=== PATIENT | male | born 1960 | race Caucasian/White ===

== ENCOUNTER 2019-04-25 00:54 | Outpatient (CLI) | payer OTHER, SELFPAY ==
--- NOTE | 2019-04-25 10:22 | DI.RAD_ITS ---
SYMPTOM/DIAGNOSIS: BACK PAIN LUMBOSACRAL SPINE : 04/25 Three views were obtained. There are minimal degenerative changes of the S-I joints bilaterally, Thee is transitional lumbosacral vertebra. There is disc space narrowing at the T-11, T-12 level. Intervertebral disc spaces otherwise appear well maintained. Mild hypertrophic spurring noted involving facet joints and vertebral end plates. CONCLUSION: Mild degenerative changes of the lumbar spine. ID VERIFIED BY PHOTO ID
--- NOTE | 2019-04-25 10:22 | DI.RAD_ITS ---
SYMPTOM/DIAGNOSIS: HAND PAIN RIGHT HAND: 04/25 Two views were obtained. There is an apparent old unhealed injury of the tuft of the distal phalanx of the ring finger. There appears to be a mild flexion deformity at the PIP joint of the little finger. No other significant bony or soft tissue abnormality seen. ID VERIFIED BY PHOTO ID
--- NOTE | 2019-04-25 10:22 | DI.RAD_ITS ---
SYMPTOM/DIAGNOSIS: KNEE PAIN RIGHT KNEE: 04/25 Two views were obtained. There is slight narrowing medial tibial femoral cartilaginous joint space. No other significant bony or soft tissue abnormality seen. ID VERIFIED BY PHOTO ID
--- NOTE | 2019-04-25 10:22 | DI.RAD_ITS ---
SYMPTOM/DIAGNOSIS; KNEE PAIN LEFT KNEE: 04/25 Two views were obtained. There is mild narrowing of the medial tibiofemoral cartilaginous joint space. No other significant bony or soft tissue abnormality seen. ID VERIFIED BY PHOTO ID
== END 2019-04-25 01:14 ==
PROVIDERS: PCP Specialist/Technologist Athletic Trainer; Visit Provider Pediatrics Pediatric Rheumatology
DX: M25.561 Pain in right knee (principal); M25.562 Pain in left knee; M79.641 Pain in right hand; M21.241 Flexion deformity, right finger joints; M54.5 Low back pain; M53.3 Sacrococcygeal disorders, not elsewhere classified; M47.815 Spondylosis without myelopathy or radiculopathy, thoracolumbar region
CPT/HCPCS: 72100; 73120; 73560

== ENCOUNTER 2019-10-12 09:21 | Outpatient (REF) | payer MEDICAID, SELFPAY ==
[2019-10-12 13:53] LABS: Absolute Basophil Count 0.04 k/cumm (0.0-0.2); Absolute Eosinophil Count 0.32 k/cumm (0.0-0.7); Absolute Lymphocyte Count 1.82 k/cumm (1.2-3.4); Absolute Neutrophil Count 2.38 k/cumm (1.2-6.7); Basophils % 0.8; Eosinophils % 6.2; HCT 47.3 % (40.0-50.0); HGB 16.5 g/dL (13.5-17.5); Lymphocytes % 35.3; Mean Corp. HGB Concentration 34.9 g/dL (32.0-36.0); Mean Corpuscular Hemoglobin 31.5 pg (27.0-33.0); Mean Corpuscular Volume 90.3 fL (80-95); Mean Platelet Volume 9.9 fL (8.0-11.0); Monocytes % 11.6; Neutrophils % 46.1; Platelet Count 296 x1000/uL (130-400); RBC 5.24 m/cumm (4.50-6.00); RBC Distribution Width 12.7 % (11.8-14.1); White Blood Cell Count 5.16 k/cumm (4.4-10.8)
[2019-10-12 14:28] LABS: ALT 52 U/L (16-63); AST 24 U/L (15-37); Albumin 4.2 g/dL (3.4-5.0); Alkaline Phosphatase 67 U/L (46-116); Anion Gap 10.7 mmol/L (3-11); BUN 20 mg/dL (7-18); Bilirubin, Total 0.5 mg/dL (0.2-1.0); CO2 25.3 mmol/L (21.0-32.0); CREATININE 0.93 mg/dL (0.70-1.30); Calcium 9.3 mg/dL (8.5-10.1); Calculated LDL 127 mg/dL (<100); Chloride 105 mmol/L (98-107); Cholesterol 194 mg/dL (<200); Glucose 74 mg/dL (74-106); HDL Cholesterol 47 mg/dL (40-60); Potassium 4.4 mmol/L (3.5-5.1); Sodium 141 mmol/L (136-145); Total Protein 7.7 g/dL (6.4-8.2); Triglyceride 102 mg/dL (<150)
[2019-10-13 08:56] LABS: PSA, Screening 3.5 ng/mL (0.0-3.5)
== END 2019-10-12 09:41 ==
LOC: NCHCN 09:21
PROVIDERS: PCP Specialist/Technologist Athletic Trainer; Visit Provider Family Medicine
DX: K21.9 Gastro-esophageal reflux disease without esophagitis (principal); R10.84 Generalized abdominal pain; Z87.820 Personal history of traumatic brain injury; Z00.00 Encounter for general adult medical examination without abnormal findings; Z12.5 Encounter for screening for malignant neoplasm of prostate
CPT/HCPCS: 80053; 80061; 84153; 85025

== ENCOUNTER 2020-02-27 11:36 | Emergency (ER) | payer MEDICAID, SELFPAY ==
[2020-02-27 11:41] VITALS: BP 118/74; PULSE 64; RESP 16; TEMP 36.2; O2SAT 97
--- NOTE | 2020-02-27 11:59 | ED.GENADUL_ITS ---
Discharge Plan Disposition Patient Disposition: HOME Condition: Stable Discharge Details Chief Complaint: RashLesion Clinical Impression: Tick bite Primary Care Provider: Jeffy Tineo ED Provider: Radu Harris Home Meds and New Rx's Prescriptions: New doxycycline hyclate 100 mg capsule 100 mg PO BID 14 Days Qty: 28 RF: 0 Continued clotrimazole-betamethasone [Lotrisone] 15 GM cream 15 gm Topical RF: 0 omeprazole 20 MG capsule,delayed release(DR/EC) 20 mg PO DAILY Qty: 30 RF: 3 Discharge Instructions Instructions: Tick Bite (ED), Puncture Wound (ED) Additional Instructions: Doxycycline as directed. As we discussed, doxycycline can cause sun sensitivity, be sure to wear sunblock and avoid direct sun exposure. Please watch for new or worsening symptoms and return to the ER for any concerns. Remember today an x-ray of your hand was offered but declined. I do recommend reaching out your primary care provider later today or tomorrow for prompt outpatient reevaluation. Medical Decision Making Otherwise healthy 59-year-old gentleman who is right-hand dominant presents with 2 separate complaints. He fell yesterday injuring his left hand. Tetanus status is up-to-date. He declines x-ray. Given his examination low suspicion for acute bony abnormality. Certainly cannot rule out puncture wound, foreign body, etc. Patient understands this and declines care for this issue. Given his tick bite exposure, clinically appears to have cellulitis, no obvious bull's-eye rash, will treat with p.o. doxycycline. Patient comfortable this plan and has additional questions or concerns. He appears well, nontoxic and is afebrile. Medical Records Medical records reviewed: Yes I reviewed the patient's medical records. HPI General Mode of arrival: ambulatory . Date/Time Provider Initiated Documentation: 02/27/20 11:42 . Limitations to Documentation: no limitations . Information obtained by: patient . HPI Narrative: This is a 59-year-old gentleman who denies any significant past medical history. He presents to the ER with 2 separate complaints. He reports he pulled an engorged tick off of his left leg 4 days ago, now the area is warm and slightly tender. He reports generalized mild fatigue but denies fever, rash elsewhere on his body, joint pain. Patient is right-hand dominant, reports yesterday that he fell on his left hand, and landed on a nail. Sustained a small laceration but reports that symptoms have much improved today when compared to yesterday. He does not believe it is broken and does not want an x-ray. He is just making me aware of this as he is here primarily for the tick bite. Denies numbness, tingling, weakness. Patient is unsure of his exact tetanus date, believes it was roughly 5 years ago. We were able to confirm that his last tetanus update was on 03-16-16 Related Data Home Medications Medication Instructions Recorded Confirmed clotrimazole-betamethasone 15 gm TOPICAL 10/16/16 [Lotrisone] omeprazole 20 mg PO DAILY #30 capsule. 11/23/16 02/27/20 doxycycline hyclate 100 mg PO BID 14 Days #28 cap 02/27/20 Previous Rx's Medication Instructions Recorded omeprazole 20 mg PO DAILY #30 capsule. 11/23/16 doxycycline hyclate 100 mg PO BID 14 Days #28 cap 02/27/20 Allergies Allergy/AdvReac Type Severity Reaction Status Date / Time naproxen sodium [From Aleve] Allergy Skin Rash Unverified 02/27/20 11:43 aspirin AdvReac GI Bleeding Unverified 02/27/20 11:43 General Stated Complaint: RashLesion JACK: 4 Review of Systems Constitutional Constitutional: Reports fatigue, Denies fever(s), Denies headache(s) and Denies weakness ENT Ears, Nose, Mouth, and Throat: Denies headache(s) Gastrointestinal Gastrointestinal: Denies nausea Musculoskeletal Musculoskeletal: Denies numbness and Denies tingling Integumentary/Breasts Skin/Breast: Reports erythema Neurologic Neurologic: Denies headache(s), Denies numbness, Denies tingling and Denies weakness Endocrine Endocrine: Reports fatigue PFSH Surgical History Colonoscopy - MAC (11/23/16) EGD - MAC (11/23/16) Social History Smoking/Tobacco Use Status: Never Alcohol Intake: never Drug use: Never Do you feel safe in your relationship?: Yes Exam Const General: cooperative, healthy appearing, comfortable and no acute distress Orientation: alert, awake and oriented x3 HENMT Head: normal to inspection, normocephalic and atraumatic Mouth: moist mucous membranes Eyes Conjunctivae: conjunctivae normal Neck Neck: normal visual inspection, trachea midline and supple Resp Effort & Inspection: normal respiratory effort and able to speak in complete sentences Cardio Rate: regular rate Rhythm: regular rhythm Skin Lesions: no lesions Neuro General: patient alert, patient awake, patient oriented x3, moves all extremities and no focal motor deficits Cognition: normal cognition Speech: speech normal Gait: normal gait Motor: muscle tone normal throughout and strength 5/5 throughout Sensory Exam: no sensory deficits noted Extrem Left upper extremity: hand Hand/finger images: 1. 0.5 cm laceration-puncture wound. There is no erythema, warmth, drainage, or obvious foreign body. There is mild localized swelling-ecchymosis without any bony point tenderness. Full range of motion of all fingers and wrist. Neuro, vascular, tendon intact Upper/lower leg/hip images: 1. Quarter sized area of macular erythema, minimal warmth and discomfort to palpation. Centrally there appears to be a scab, potential puncture wound or insect bite. There is no induration or fluctuance. There is no lymphangitic streaking. Neuro, vascular, tendon intact Psych Appearance: grossly normal Mental Status: mental status grossly normal Course Vital Signs Vital signs: Vital Signs Temperature 36.2 C L 02/27/20 11:41 Pulse 64 02/27/20 11:41 Respiratory Rate 16 02/27/20 11:41 Blood Pressure 118/74 02/27/20 11:41 Pulse Oximetry 97 02/27/20 11:41 Temperature 36.2 C L 02/27/20 11:41 Temperature Source Skin 02/27/20 11:41 Pulse 64 02/27/20 11:41 Respiratory Rate 16 02/27/20 11:41 Respiratory Effort Non-Labored 02/27/20 11:41 Blood Pressure 118/74 02/27/20 11:41 Blood Pressure Position Sitting 02/27/20 11:41 Pulse Oximetry 97 02/27/20 11:41 Oxygen Delivery Method Room Air 02/27/20 11:41 Oxygen Flow Rate 0 02/27/20 11:41 Pain Level 5 02/27/20 11:41
== END 2020-02-27 13:00 | disposition home or self-care (01) ==
PROVIDERS: Emergency Provider Physician Assistant; PCP Specialist/Technologist Athletic Trainer
DX: S80.862A Insect bite (nonvenomous), left lower leg, initial encounter (principal); W57.XXXA Bitten or stung by nonvenomous insect and other nonvenomous arthropods, initial encounter; L03.116 Cellulitis of left lower limb; S61.432A Puncture wound without foreign body of left hand, initial encounter; W45.0XXA Nail entering through skin, initial encounter
CPT/HCPCS: 99283

== ENCOUNTER 2021-06-01 16:46 | Inpatient (IN) | payer MEDICAID, SELFPAY ==
[2021-06-01] VITALS (74 sets, daily range): BP systolic 98–126; BP diastolic 63–84; PULSE 49–81; RESP 13–28; TEMP 36.7–37; O2SAT 90–97
--- NOTE | 2021-06-01 16:45 | RT.EKG_ITS ---
APPROVED REPORT Exam: Resting ECG Reason for Exam: sob Patient Location: E HR:73 bpm ECG Measurements Heart Rate 73 AXIS ME 164 P 24 QRSd 101 QRS -48 QT 381 T 17 QTc 420 Conclusion Sinus rhythm...normal P axis, V-rate 60- 99 Left anterior fascicular block...axis(240,-40), init forces inf Low voltage, precordial leads...precordial leads <1.0mV
--- NOTE | 2021-06-01 17:15 | DI.RAD_ITS ---
Exam(s) XR PORTABLE CHEST AP EXAM: XR PORTABLE CHEST AP-single view CLINICAL HISTORY: cough. TECHNIQUE: 2D digital imaging was performed. COMPARISON: No exams were available for comparison FINDINGS: Heart size is upper normal. The mediastinum is not widened. Lungs are clear. No infiltrates nor obvious pleural effusions. Chest leads in place IMPRESSION: No acute pulmonary findings on this single AP portable view of the chest. DATA REPOSITORY: RADIATION DOSE DELIVERED: All CT scans at this facility use at least one of these dose optimization techniques: automated exposure control; mA and/or kV adjustment per patient size (includes targeted e xams where dose is matched to clinical indication); or iterative reconstruction.
[2021-06-01 17:37] LABS: Source Nasal/Nares
[2021-06-01 17:39] LABS: Abs Immature Grans 0.01 10^3/uL (0.0-0.06); Absolute Basophil Count 0.01 10^3/uL (0.0-0.2); Absolute Eosinophil Count 0.18 10^3/uL (0.0-0.7); Absolute Lymphocyte Count 1.49 10^3/uL (1.2-3.4); Absolute Neutrophil Count 2.38 10^3/uL (1.2-6.7); Basophils % 0.2; HCT 46.3 % (40.0-50.0); HGB 15.8 g/dL (13.5-17.5); Immature Grans % 0.2; Lymphocytes % 33.3; MCH 31.5 pg (27.0-33.0); MCHC 34.1 % (32.0-36.0); MCV 92.4 fL (80-95); MPV 9.8 fL (8.0-11.0); Monocytes % 8.9; Neutrophils % 53.4; Nucleated RBC 0 %; Platelet Count 198 10^3/uL (130-400); RBC 5.01 10^6/uL (4.36-5.78); RDW 12.4 % (11.8-14.1); RDW-SD 42.5 fL; WBC 4.47 10^3/uL (4.4-10.8)
[2021-06-01 17:51] LABS: PTT Activated 24.5 sec (21.0-27.5); Prothrombin Time 10.2 sec (9.3-11.0)
[2021-06-01 18:01] LABS: ALT 39 U/L (16-63); AST 26 U/L (15-37); Albumin 3.9 g/dL (3.4-5.0); Alkaline Phosphatase 78 U/L (46-116); Anion Gap 12.1 mmol/L (3-11); BUN 15 mg/dL (7-18); Bilirubin, Total 0.4 mg/dL (0.2-1.0); CO2 23.9 mmol/L (21.0-32.0); CREATININE 1.3 mg/dL (0.70-1.30); Calcium 8.8 mg/dL (8.5-10.1); Chloride 104 mmol/L (98-107); Estimated GFR 56.31 (mL/min/1.73m2); Glucose 175 mg/dL (74-106); Magnesium 2.1 mg/dL (1.8-2.4); NT-proBNP 24 pg/mL (<300); Potassium 3.8 mmol/L (3.5-5.1); Sodium 140 mmol/L (136-145); Total Protein 7.9 g/dL (6.4-8.2)
[2021-06-01 18:02] LABS: Troponin I 0.11 ng/mL (<0.06)
[2021-06-01 18:17] LABS: D-Dimer 320 ng/mlFEU (<500)
[2021-06-01 18:25] LABS: COVID-19 PCR POSITIVE (Negative)
[2021-06-01] MEDS: nitroGLYcerin 0.4 MG TAB SL (18:28)
--- NOTE | 2021-06-01 19:00 | DI.CT_ITS ---
Exam(s) CT CHEST PE CTA EXAM: CT CHEST PE CTA CLINICAL HISTORY: Covid +, CP, SOB, HX of PE. TECHNIQUE: Imaging Protocol: CT angiography of the chest was performed using pulmonary embolus denise col. Multi planar reconstructions were performed. CONTRAST MATERIAL: Intravenous: Omnipaque 350 Contrast volume: 100 cc COMPARISON: No exams were available for comparison FINDINGS: CHEST: PULMONARY ARTERIES: There are no intraluminal filling defects to suggest acute pulmonary emboli. LUNGS: There is some infiltrate in both lower lobes, more prominent on the right side. No pleural ef fusions. No ominous pulmonary nodules. No significant focal findings in the trachea and mainstem br onchi.. MEDIASTINUM: There is no hilar nor mediastinal adenopathy. Visualized thyroid unremarkable. CARDIAC: Heart size is upper normal. There is no pericardial effusion.Caliber of the thoracic aorta is within normal limits. There is no significant shift of the interventricular septum. PARTIALLY VISUALIZED UPPERMOST ABDOMEN: No obvious findings OSSEOUS: No significant osseous lesions.. IMPRESSION: 1. No evidence of acute pulmonary emboli. No evidence of pulmonary infarction.No pleural effusions. 2. Right lower lobe infiltrate. Also smaller left lower lobe infiltrate. No pleural effusions. 3. No intrathoracic adenopathy evident. Study 1st read by [facility] My final report was called to ER physician 06/02/2021 at 8:05 a.m.. RADIATION DOSE DELIVERED: 518.99mGy.cm Total DLP DATA REPOSITORY: All CT scans at this facility are submitted to the National Radiology Data Registry (NRDR) Dose Index Registry (DIR) with the [employer] ([employer]). RADIATION OPTIMIZATION: All CT scans at this facility use at least one of these dose optimization te chniques: automated exposure control; mA and/or kV adjustment per patient size (includes targeted exa ms where dose is matched to clinical indication); or iterative reconstruction.
--- NOTE | 2021-06-01 19:12 | W.ED.GENAD ---
Discharge Plan Disposition Patient Disposition: [facility] INPATIENT Condition: Serious Discharge Details Clinical Impression: COVID-19, Chest pain, Elevated troponin Primary Care Provider: Jeffy Tineo ED Provider: Radu Harris Home Meds and New Rx's Prescriptions: No Action clotrimazole-betamethasone [Lotrisone] 15 GM cream 15 gm Topical RF: 0 omeprazole 20 MG capsule,delayed release(DR/EC) 20 mg PO DAILY Qty: 30 RF: 3 Medical Decision Making This is a 61-year-old gentleman, denies significant past medical history, presenting to the ER complaining of fatigue, cough, shortness of breath, chest pain over the past week differential is broad, includes but not excluded to Covid, pneumonia, bronchitis, myocarditis, costochondritis, ACS, PE, etc. EKG obtained, no STEMI. Will give a single dose of full dose aspirin and nitro. Patient reports allergy to aspirin, refuses. Agreeable to taking nitro. Will obtain IV access, initiate cardiac work-up with occluded a 1 view chest x-ray and Covid swab Laboratory values reveal elevated troponin at 0.11 and patient is Covid positive. Laboratory values are otherwise unremarkable for obvious emergent process. Normal D-dimer, we will not pursue CTA. Patient reports that he is pain-free after the single nitro. Patient is hemodynamically stable, O2 sats are 95% on room air. X-ray cannot exclude left lower lobe pneumonia or atelectasis. Patient is afebrile, no evidence of leukocytosis, clinically doubt acute pneumonia. Given that he is Covid positive, elevated troponin, certainly consider myocarditis. I initially reached out to [facility] to discuss potential transfer, they are at capacity and cannot accept. I then had the same conversation with [facility] and unfortunately the same results. I then discussed the case with our hospitalist team, Dr. Matthews. He is agreeable to admission, will personally see the patient in our ER, and prior to admission does request a CTA of the chest. CTA of the chest ordered. Medical Records Medical records reviewed: Yes I reviewed the patient's medical records. Imaging Data Radiologic Study: Attestation: I personally reviewed and interpreted this imaging study as follows: Imaging: X-Ray Radiologist's impression: PROCEDURE INFORMATION: Exam: XR Chest Exam date and time: 06/01/2021 17:19 Age: 61 years old Clinical indication: Other: Cough TECHNIQUE: Imaging protocol: XR of the chest. Views: 1 view. COMPARISON: CR CHEST 2 VIEWS PA,LAT 07/21/2017 10:19 FINDINGS: Lungs: An opacity in the left retrocardiac region cannot be excluded on this frontal view. The diaphragm is obscured. Pleural spaces: No pleural effusion. No pneumothorax. Heart/Mediastinum: No cardiomegaly. Diaphragm: Elevated right hemidiaphragm. Bones/joints: No acute fracture. IMPRESSION: Left lower lobe pneumonia and or atelectasis cannot be excluded on this frontal view. Consider lateral view for further workup if clinically indicated. Lab Data Lab results reviewed: Yes I reviewed the patient's lab results. Labs: Laboratory Tests Range/Units 06/01/21 06/01/21 06/01/21 17:04 17:04 17:04 WBC (4.4-10.8) 10^3/uL 4.47 RBC (4.36-5.78) 10^6/uL 5.01 Hgb (13.5-17.5) g/dL 15.8 Hct (40.0-50.0) % 46.3 MCV (80-95) fL 92.4 MCH (27.0-33.0) pg 31.5 MCHC (32.0-36.0) % 34.1 RDW (11.8-14.1) % 12.4 Plt Count (130-400) 10^3/uL 198 MPV (8.0-11.0) fL 9.8 Immature Gran % 0.2 Neutrophils % 53.4 Lymphocytes % 33.3 Monocytes % 8.9 Eosinophils % 4.0 Basophils % 0.2 Nucleated RBC % % 0 Absolute Neutrophils (1.2-6.7) 10^3/uL 2.38 Absolute Lymphocytes (1.2-3.4) 10^3/uL 1.49 Absolute Monocytes (0.1-0.8) 10^3/uL 0.40 Absolute Eosinophils (0.0-0.7) 10^3/uL 0.18 Absolute Basophils (0.0-0.2) 10^3/uL 0.01 PT (9.3-11.0) sec 10.2 INR (0.9-1.1) 1.0 APTT (21.0-27.5) sec 24.5 D-Dimer (<500) ng/mlFEU 320 Sodium (136-145) mmol/L 140 Potassium (3.5-5.1) mmol/L 3.8 Chloride (98-107) mmol/L 104 Carbon Dioxide (21.0-32.0) mmol/L 23.9 Anion Gap (3-11) mmol/L 12.1 H BUN (7-18) mg/dL 15 Creatinine (0.70-1.30) mg/dL 1.3 Estimated GFR/1.73 m2 (mL/min/1.73m2) 56.31 Glucose (74-106) mg/dL 175 H Calcium (8.5-10.1) mg/dL 8.8 Magnesium (1.8-2.4) mg/dL 2.1 Total Bilirubin (0.2-1.0) mg/dL 0.4 AST (15-37) U/L 26 ALT (16-63) U/L 39 Alkaline Phosphatase (46-116) U/L 78 Troponin I (<0.06) ng/mL 0.11 H* NT-Pro-B Natriuret Pep (<300) pg/mL 24 Total Protein (6.4-8.2) g/dL 7.9 Albumin (3.4-5.0) g/dL 3.9 COVID-19 Source SARS-CoV-2 (PCR) (Negative) Range/Units 06/01/21 06/01/21 17:30 19:45 WBC (4.4-10.8) 10^3/uL RBC (4.36-5.78) 10^6/uL Hgb (13.5-17.5) g/dL Hct (40.0-50.0) % MCV (80-95) fL MCH (27.0-33.0) pg MCHC (32.0-36.0) % RDW (11.8-14.1) % Plt Count (130-400) 10^3/uL MPV (8.0-11.0) fL Immature Gran % Neutrophils % Lymphocytes % Monocytes % Eosinophils % Basophils % Nucleated RBC % % Absolute Neutrophils (1.2-6.7) 10^3/uL Absolute Lymphocytes (1.2-3.4) 10^3/uL Absolute Monocytes (0.1-0.8) 10^3/uL Absolute Eosinophils (0.0-0.7) 10^3/uL Absolute Basophils (0.0-0.2) 10^3/uL PT (9.3-11.0) sec INR (0.9-1.1) APTT (21.0-27.5) sec D-Dimer (<500) ng/mlFEU Sodium (136-145) mmol/L Potassium (3.5-5.1) mmol/L Chloride (98-107) mmol/L Carbon Dioxide (21.0-32.0) mmol/L Anion Gap (3-11) mmol/L BUN (7-18) mg/dL Creatinine (0.70-1.30) mg/dL Estimated GFR/1.73 m2 (mL/min/1.73m2) Glucose (74-106) mg/dL Calcium (8.5-10.1) mg/dL Magnesium (1.8-2.4) mg/dL Total Bilirubin (0.2-1.0) mg/dL AST (15-37) U/L ALT (16-63) U/L Alkaline Phosphatase (46-116) U/L Troponin I (<0.06) ng/mL 0.11 H* NT-Pro-B Natriuret Pep (<300) pg/mL Total Protein (6.4-8.2) g/dL Albumin (3.4-5.0) g/dL COVID-19 Source Nasal/Nares SARS-CoV-2 (PCR) (Negative) POSITIVE A* ECG Data Attestation: I personally reviewed and interpreted this ECG (s) as follows: Interpretation: Please see official report by Dr. Jacques. Sinus rhythm, ventricular rate of 73. No STEMI. HPI General Mode of arrival: ambulatory. Date/Time Provider Initiated Documentation: 06/01/21 17:03. Limitations to Documentation: no limitations. Information obtained by: patient. HPI Narrative: This is a 61-year-old man, reports past medical history of GERD and bronchitis, presenting to the ER today reporting cough with green phlegm, shortness of breath, general fatigue, anterior chest pain mid chest worse with cough for 1 week. Patient states that he went to the [facility] last week with his brother, brother has similar symptoms, he has not been vaccinated for Covid. He tells me he was admitted in the [facility] approximately 6 months ago for what he describes as bronchitis, at that time had a negative stress test. Patient denies headache, neck pain, fever, abdominal pain, nausea, vomiting, pain or swelling in his legs, change of bowel or bladder function. Patient denies cardiac history, smoking, alcohol use. He has not taken any [id number] medications for symptomatic control. Patient reports that his chest pain is dull, aching, does not radiate, coughing makes it worse. Describes his chest pain currently as a 2 or 3 out of 10, up to a 6 with coughing Related Data Home Medications Medication Instructions Recorded Confirmed clotrimazole-betamethasone 15 gm TOPICAL 10/16/16 [Lotrisone] omeprazole 20 mg PO DAILY #30 capsule. 11/23/16 02/27/20 Previous Rx's Medication Instructions Recorded omeprazole 20 mg PO DAILY #30 capsule. 11/23/16 Allergies Allergy/AdvReac Type Severity Reaction Status Date / Time naproxen sodium [From Aleve] Allergy Skin Rash Unverified 02/27/20 11:43 aspirin AdvReac GI Bleeding Unverified 02/27/20 11:43 General Stated Complaint: RespSymp JACK: 3 Review of Systems Constitutional Constitutional: Denies fatigue, Denies fever(s), Denies headache(s) and Denies weakness ENT Ears, Nose, Mouth, and Throat: Denies headache(s) and Denies neck pain Cardiovascular Cardiovascular: Reports chest pain and Reports dyspnea Respiratory Respiratory: Reports dyspnea Gastrointestinal Gastrointestinal: Denies abdominal pain, Denies nausea and Denies vomiting Genitourinary Genitourinary: Denies dysuria Musculoskeletal Musculoskeletal: Denies back pain, Denies neck pain, Denies numbness and Denies tingling Integumentary/Breasts Skin/Breast: Denies rash Neurologic Neurologic: Denies headache(s), Denies numbness, Denies tingling and Denies weakness Endocrine Endocrine: Denies fatigue Hematologic/Lymphatic Hematologic/Lymphatic: Denies easy bleeding and Denies easy bruising PFSH Surgical History Colonoscopy - MAC (11/23/16) EGD - MAC (03/20/17) Social History Smoking/Tobacco Use Status: Never Smoking risk assessment performed?: Yes Alcohol Intake: current Alcohol Intake frequency: holidays/special occasions only Drug use: Never Substance use type: does not use Do you feel safe at home: Yes Do you feel safe in your relationship?: Yes Exam Const General: cooperative, healthy appearing, comfortable and no acute distress Orientation: alert and awake [facility] Head: normal to inspection, normocephalic and atraumatic Face and sinus: normal facial exam Mouth: moist mucous membranes Eyes General: appearance normal, both eyes and all related structures Conjunctivae: conjunctivae normal Neck Neck: normal visual inspection, full ROM, trachea midline, supple and nontender Chest Chest: normal inspection of the chest Chest/axillae images: 1. Mild reproducible discomfort. No erythema, warmth, crepitus. Skin is intact Resp Effort & Inspection: normal respiratory effort and able to speak in complete sentences Auscultation: diminished lung sounds bilaterally in the lower lung dee (Slightly) Cardio Rate: regular rate Rhythm: regular rhythm GI Palpation: soft, not firm, no guarding, no pulsatile masses and nontender Auscultation: normal bowel sounds Back/Spine/Pelvis Back: No back tenderness Skin General skin exam: no rashes or lesions noted Neuro General: patient alert, patient awake, moves all extremities and no focal motor deficits Cognition: normal cognition Speech: speech normal Gait: normal gait Sensory Exam: no sensory deficits noted Extrem General: normal to inspection, full ROM, capillary refill normal, no pedal edema and no calf tenderness Psych Appearance: grossly normal Mental Status: mental status grossly normal Course Vital Signs Vital signs: Vital Signs Temperature 37 C 06/01/21 16:55 Pulse 77 06/01/21 16:55 Respiratory Rate 18 06/01/21 16:55 Blood Pressure 124/79 06/01/21 16:55 Pulse Oximetry 95 06/01/21 16:55 Temperature 37 C 06/01/21 16:55 Temperature Source Temporal Artery Scan 06/01/21 16:55 Pulse 70 06/01/21 18:56 Pulse 71 06/01/21 18:56 Respiratory Rate 18 06/01/21 18:56 Respiratory Effort 06/01/21 17:49 Respiratory Depth Normal 06/01/21 17:49 Blood Pressure 116/73 06/01/21 18:56 Blood Pressure Mean 83 06/01/21 18:56 Blood Pressure Position Sitting 06/01/21 16:55 Pulse Oximetry 95 06/01/21 18:56 Oxygen Delivery Method Room Air 06/01/21 16:55 Oxygen Flow Rate 0 06/01/21 16:55 Pain Level 3 06/01/21 18:28 Lab/Test Results Lab/Test Results: Laboratory Tests Range/Units 06/01/21 06/01/21 06/01/21 17:04 17:04 17:04 WBC (4.4-10.8) 10^3/uL 4.47 RBC (4.36-5.78) 10^6/uL 5.01 Hgb (13.5-17.5) g/dL 15.8 Hct (40.0-50.0) % 46.3 MCV (80-95) fL 92.4 MCH (27.0-33.0) pg 31.5 MCHC (32.0-36.0) % 34.1 RDW (11.8-14.1) % 12.4 Plt Count (130-400) 10^3/uL 198 MPV (8.0-11.0) fL 9.8 Immature Gran % 0.2 Neutrophils % 53.4 Lymphocytes % 33.3 Monocytes % 8.9 Eosinophils % 4.0 Basophils % 0.2 Nucleated RBC % % 0 Absolute Neutrophils (1.2-6.7) 10^3/uL 2.38 Absolute Lymphocytes (1.2-3.4) 10^3/uL 1.49 Absolute Monocytes (0.1-0.8) 10^3/uL 0.40 Absolute Eosinophils (0.0-0.7) 10^3/uL 0.18 Absolute Basophils (0.0-0.2) 10^3/uL 0.01 PT (9.3-11.0) sec 10.2 INR (0.9-1.1) 1.0 APTT (21.0-27.5) sec 24.5 D-Dimer (<500) ng/mlFEU 320 Sodium (136-145) mmol/L 140 Potassium (3.5-5.1) mmol/L 3.8 Chloride (98-107) mmol/L 104 Carbon Dioxide (21.0-32.0) mmol/L 23.9 Anion Gap (3-11) mmol/L 12.1 H BUN (7-18) mg/dL 15 Creatinine (0.70-1.30) mg/dL 1.3 Estimated GFR/1.73 m2 (mL/min/1.73m2) 56.31 Glucose (74-106) mg/dL 175 H Calcium (8.5-10.1) mg/dL 8.8 Magnesium (1.8-2.4) mg/dL 2.1 Total Bilirubin (0.2-1.0) mg/dL 0.4 AST (15-37) U/L 26 ALT (16-63) U/L 39 Alkaline Phosphatase (46-116) U/L 78 Troponin I (<0.06) ng/mL 0.11 H* NT-Pro-B Natriuret Pep (<300) pg/mL 24 Total Protein (6.4-8.2) g/dL 7.9 Albumin (3.4-5.0) g/dL 3.9 COVID-19 Source SARS-CoV-2 (PCR) (Negative) Range/Units 06/01/21 17:30 WBC (4.4-10.8) 10^3/uL RBC (4.36-5.78) 10^6/uL Hgb (13.5-17.5) g/dL Hct (40.0-50.0) % MCV (80-95) fL MCH (27.0-33.0) pg MCHC (32.0-36.0) % RDW (11.8-14.1) % Plt Count (130-400) 10^3/uL MPV (8.0-11.0) fL Immature Gran % Neutrophils % Lymphocytes % Monocytes % Eosinophils % Basophils % Nucleated RBC % % Absolute Neutrophils (1.2-6.7) 10^3/uL Absolute Lymphocytes (1.2-3.4) 10^3/uL Absolute Monocytes (0.1-0.8) 10^3/uL Absolute Eosinophils (0.0-0.7) 10^3/uL Absolute Basophils (0.0-0.2) 10^3/uL PT (9.3-11.0) sec INR (0.9-1.1) APTT (21.0-27.5) sec D-Dimer (<500) ng/mlFEU Sodium (136-145) mmol/L Potassium (3.5-5.1) mmol/L Chloride (98-107) mmol/L Carbon Dioxide (21.0-32.0) mmol/L Anion Gap (3-11) mmol/L BUN (7-18) mg/dL Creatinine (0.70-1.30) mg/dL Estimated GFR/1.73 m2 (mL/min/1.73m2) Glucose (74-106) mg/dL Calcium (8.5-10.1) mg/dL Magnesium (1.8-2.4) mg/dL Total Bilirubin (0.2-1.0) mg/dL AST (15-37) U/L ALT (16-63) U/L Alkaline Phosphatase (46-116) U/L Troponin I (<0.06) ng/mL NT-Pro-B Natriuret Pep (<300) pg/mL Total Protein (6.4-8.2) g/dL Albumin (3.4-5.0) g/dL COVID-19 Source Nasal/Nares SARS-CoV-2 (PCR) (Negative) POSITIVE A* Critical Care Time Critical Care Time Critical Care Time: Yes Total Critical Care Time: 35 Attestation: Upon my evaluation, this patient had a high probability of clinically significant, life-threatening deterioration due to their current medical conditions, which required my direct attention, intervention, and personal management. I have personally provided greater than 30 minutes of critical care time exclusive of the time spend on separately billable procedures. Time includes obtaining a history, examining the patient, pulse oximetry, review of laboratory data, radiology results, discussion with consultants, arranging urgent treatment with development of a management plan, evaluation of patient's response to treatment, and monitoring for potential decompensation. Interventions were performed as documented above.
--- NOTE | 2021-06-01 19:15 | HPE_ITS ---
Date of service: 06/01/21 Time of Service: 19:15 Assessment and Plan Assessment and plan (1) COVID-19: Status: Acute Assessment and plan: COVID-19. By CXR I think there may be some pneumonitis, but sats in any case are satisfactory at present. The troponin likely represents an element of myocarditis, no clinical signs heart failure. The pleuritic CP may in fact be related to cough and muscle strain, but despite the normal d-Dimer I would maintain some cocern for PE (even more so with h/o PE) and have asked ER to obtain CTA. This will also help better delinmeate extent of COVID pneumonitis. COVID: begin Remdesivir and steroids; hold on Barictinib unless rerspiratory status declines. DVT prop[hylaxis unless CTA positive. Troponin, ?myocarditis. Trend trop, ECHO History of Present Illness History of Present Illness Chief Complaint: SOB, cough, CP and COVID positive Narrative: 61 male, unvaccinated, recently visiting family in [facility]. Here with one week of cough, MULLINS and pleuritic CP (only with cough, not with deep breathing). Also had diarrhea but has since resolved. In ER findings of note for absence of fever, O2 sats low-mod 90s on RA, negative CXR (though to my read I might call an interstitial pattern), negative d-Dimer, trop 0.11 and EKG with m inor nonspecific TW changes, though unchanged from baseline. COVID is positive. Denies loss of taste or smell. Does report PE about a year ago but says he was treated for only two weeks. Review of Systems All systems reviewed & are unremarkable except as noted in HPI and below PFSH Surgical History Colonoscopy - MAC (11/23/16) EGD - MAC (11/23/16) Social History Smoking/Tobacco Use Status: Never Smoking risk assessment performed?: Yes Alcohol Intake: current Alcohol Intake frequency: holidays/special occasions only Drug use: Never Substance use type: does not use Do you feel safe at home: Yes Do you feel safe in your relationship?: Yes Meds Allergies and Home Medications Allergies Allergy/AdvReac Type Severity Reaction Status Date / Time naproxen sodium [From Aleve] Allergy Skin Rash Unverified 02/27/20 11:43 aspirin AdvReac GI Bleeding Unverified 02/27/20 11:43 Home Medications Medication Instructions Recorded Confirmed Type clotrimazole-betamethasone 15 gm TOPICAL 10/16/16 History [Lotrisone] omeprazole 20 mg PO DAILY #30 capsule. 11/23/16 02/27/20 Rx Exam Narrative Exam Narrative: 116/73, 70, 37.0, 18, 95% RA. HEENT atraumatic; neck supple; lungs fine basilar rales; heart distant, RRR; abdomen soft and NT; extremities w/o edema, pulses 2+/=; neuro Ox3, lucid, moves all 4s Results Labs Result diagrams: 06/01/21 17:04 06/01/21 17:04 Labs: Laboratory Results - last 24 hr 06/01/21 06/01/21 06/01/21 17:04 17:04 17:04 WBC 4.47 RBC 5.01 Hgb 15.8 Hct 46.3 MCV 92.4 MCH 31.5 MCHC 34.1 RDW 12.4 Plt Count 198 MPV 9.8 Immature Gran % 0.2 Neutrophils % 53.4 Lymphocytes % 33.3 Monocytes % 8.9 Eosinophils % 4.0 Basophils % 0.2 Nucleated RBC % 0 Absolute Neutrophils 2.38 Absolute Lymphocytes 1.49 Absolute Monocytes 0.40 Absolute Eosinophils 0.18 Absolute Basophils 0.01 PT 10.2 INR 1.0 APTT 24.5 D-Dimer 320 Sodium 140 Potassium 3.8 Chloride 104 Carbon Dioxide 23.9 Anion Gap 12.1 H BUN 15 Creatinine 1.3 Estimated GFR/1.73 m2 56.31 Glucose 175 H Calcium 8.8 Magnesium 2.1 Total Bilirubin 0.4 AST 26 ALT 39 Alkaline Phosphatase 78 Troponin I 0.11 H* NT-Pro-B Natriuret Pep 24 Total Protein 7.9 Albumin 3.9 COVID-19 Source SARS-CoV-2 (PCR) 06/01/21 17:30 WBC RBC Hgb Hct MCV MCH MCHC RDW Plt Count MPV Immature Gran % Neutrophils % Lymphocytes % Monocytes % Eosinophils % Basophils % Nucleated RBC % Absolute Neutrophils Absolute Lymphocytes Absolute Monocytes Absolute Eosinophils Absolute Basophils PT INR APTT D-Dimer Sodium Potassium Chloride Carbon Dioxide Anion Gap BUN Creatinine Estimated GFR/1.73 m2 Glucose Calcium Magnesium Total Bilirubin AST ALT Alkaline Phosphatase Troponin I NT-Pro-B Natriuret Pep Total Protein Albumin COVID-19 Source Nasal/Nares SARS-CoV-2 (PCR) POSITIVE A* Last Vital Signs Temp 37 C 06/01/21 16:55 Pulse 70 06/01/21 18:56 Resp 18 06/01/21 18:56 BP 116/73 06/01/21 18:56 Pulse Ox 95 06/01/21 18:56
--- NOTE | 2021-06-01 19:28 | DI.VRAD_ITS ---
PROCEDURE INFORMATION: Exam: XR Chest Exam date and time: 06/01/2021 17:19 Age: 61 years old Clinical indication: Other: Cough TECHNIQUE: Imaging protocol: XR of the chest. Views: 1 view. COMPARISON: CR CHEST 2 VIEWS PA,LAT 07/21/2017 10:19 FINDINGS: Lungs: An opacity in the left retrocardiac region cannot be excluded on this frontal view. The diaphragm is obscured. Pleural spaces: No pleural effusion. No pneumothorax. Heart/Mediastinum: No cardiomegaly. Diaphragm: Elevated right hemidiaphragm. Bones/joints: No acute fracture. IMPRESSION: Left lower lobe pneumonia and or atelectasis cannot be excluded on this frontal view. Consider lateral view for further workup if clinically indicated. Dictated and Authenticated by: Lavinia Weller MD. Ordering:BLAISE Lovelace MD
[2021-06-01 20:35] LABS: Troponin I 0.11 ng/mL (<0.06)
[2021-06-01] MEDS: Omnipaque 350 MG/ML 100 ML BTL IJ (21:05)
--- NOTE | 2021-06-01 21:33 | DI.VRAD_ITS ---
PROCEDURE INFORMATION: Exam: CTA Chest With Contrast Exam date and time: 06/01/2021 19:11 Age: 61 years old Clinical indication: Other: Covid + cp SOB HX of pe TECHNIQUE: Imaging protocol: Computed tomographic angiography of the chest with contrast. 3D rendering (Not supervised by radiologist): MIP and/or 3D reconstructed images were created by the technologist. Radiation optimization: All CT scans at this facility use at least one of these dose optimization techniques: automated exposure control; mA and/or kV adjustment per patient size (includes targeted exams where dose is matched to clinical indication); or iterative reconstruction. Contrast material: OMNI 350; Contrast volume: 70 ml; Contrast route: INTRAVENOUS (IV); COMPARISON: CR XR PORTABLE CHEST AP 06/01/2021 18:08 FINDINGS: Pulmonary arteries: No pulmonary emboli. Aorta: No aortic aneurysm. No aortic dissection. Lungs: No airspace consolidation. Minimal dependent subsegmental atelectasis. Pleural spaces: No pneumothorax. No pleural effusion. Heart: No cardiomegaly. No pericardial effusion. Lymph nodes: No enlarged lymph nodes. Bones/joints: No acute fracture. Soft tissues: No suspicious lesions. IMPRESSION: 1. No pulmonary emboli are seen. 2. Minimal dependent subsegmental atelectasis. Dictated and Authenticated by: Lavinia Weller MD. Ordering:BLAISE Lovelace MD
[2021-06-01] MEDS: REMDESIVIR 200 MG in Normal Saline 250 ML 250 MG IVPB (22:40)
[2021-06-01] MEDS: Dexamethasone 10 MG/ML VIAL 6 MG IVP (22:41)
[2021-06-01] MEDS: Water,Injection,Sterile 10 ML VIAL (22:41)
[2021-06-01] MEDS: Heparin 5,000 UNITS/ML VIAL 5000 UNITS SC (22:41)
[2021-06-02] VITALS (23 sets, daily range): BP systolic 89–110; BP diastolic 55–67; PULSE 46–66; RESP 13–19; TEMP 36.7–36.9; O2SAT 91–95
--- NOTE | 2021-06-02 | DI.US_ITS ---
APPROVED REPORT EXAM: Comprehensive 2D, Doppler, and color-flow Echocardiogram Patient Location: In-Patient Room/Bed: DSY524 Rn Ante Partum: Angle Holden RDCS (AE) Indications: COVID, Positive troponin Other Information Study Quality: Fair. Technically limited study due to body habitus, inability to position patient. Conclusion Normal left ventricular wall thickness and chamber size. Estimated ejection fraction is 60%. There are no segmental wall motion abnormalities Grossly normal right ventricular size and function Both atria are normal in size The aortic valve is mildly sclerotic and trileaflet without stenosis or regurgitation Mildly thickened mitral leaflets with trace regurgitation Normal tricuspid valve with trace regurgitation Mildly dilated ascending aorta measuring 3.79 cm Wall motion Left Ventricle The left ventricle is normal size. The left ventricular systolic function is normal. The left ventric ular ejection fraction is within the normal range. There is normal left ventricular wall thickness. T here is normal LV segmental wall motion. Left ventricular filling pattern is normal for age. There is no ventricular septal defect visualized. LVEF is 60%. Right Ventricle The right ventricle is normal size. The right ventricular systolic function is normal. Atria The left atrium size is normal. Right atrium is not well visualized. The interatrial septum is intact with no evidence for an atrial septal defect. Aortic Valve The Aortic valve is mildly sclerotic. Aortic valve is trileaflet. There is no aortic valvular stenosi s. Mitral Valve Mitral valve leaflets are mildly thickened. No evidence of mitral valve stenosis. Trace mitral regurg itation. Tricuspid Valve Tricuspid valve is grossly normal in structure and function. There is no tricuspid valve stenosis. Tr arias tricuspid regurgitation. Unable to assess PA pressure. Pulmonic Valve The pulmonic valve is grossly normal in structure and function. There is no pulmonic valvular stenosi s. There is no pulmonic valvular regurgitation. Great Vessels The aortic root is normal in size. The ascending aorta is mildly dilated.3.79 cm Aortic arch is clem l in caliber. IVC is normal in size and collapses >50% with inspiration. Pericardium There is no pericardial effusion. 2D Dimensions IVSD d PLAX 0.87 cm M: 0.6-1.2 LV Vol A2C d MOD 94.1 mL LVPW d PLAX 0.87 cm M: 0.6 - 1.2 LV Vol A4C d MOD 83.1 mL LVID d PLAX 5.18 cm M: 4.2 - 5.8 LA vol/ BSA A4C s A-L 13.3 mL/m2 LVDs 3.40 cm M: 2.5 - 4.0 LA Area A4C s MOD 12.21 cm2 Ao Root d 3.48 cm M: 3.1 - 3.7 LV EF A4C MOD 60.3 % Ao Asc Diam d 3.79 cm M: 2.6 - 3.4 LV EF A2C MOD 64.0 % LV EF Teichholz 62.0 % LV EF Biplane MOD 60.4 % LVEF (Lemons's) 60.44 % M: 52 - 72 SV 55.82 mL LV Volume 69.56 mL M: 62 - 150 SV Index 28.26 mL/m2 LV Volume Index 35.30 mL/m2 M: 34 - 74 LV Vol Biplane MOD 92.4 mL FS 33.55 % M-Mode TAPSE 2.19 cm (M/F) >1.7 LV Diastology MV E' medial 0.080 (>0.07 m/s) E/A Ratio 1.1 LV E/e MED 8.90 (<14) MV E Vmax 0.71 (0.4-1.3 m/s) MV E' lateral 0.110 (>0.1 m/s) MV A Vmax 0.65 (0.4-1.3 m/s) LV E/e LAT 6.45 (<14) MV E/A Ratio 1.07 MV E/E' medial 8.90 MV E/E' lateral 6.46 Aortic Valve LVOT Area 3.21 cm2 AoV Area Vmax 2.93 cm2 LVOT Vmax 1.04 m/s AoV Area/ BSA (Vmax) 1.48 cm2/m2 LVOT Mean Ruy. 0.63 m/s LAKEISHA Mean Ruy. 2.41 cm2 LVOT Peak Grad 4.3 mmHg LAKEISHA Mean Ruy. Index 1.22 cm2/m2 LVOT Mean Grad 1.9 mmHg LVOT VTI 0.205 m LVOT Diam s 2.00 cm AoV Vmax 1.13 m/s Velocity Ratio 0.92 AoV Mean Ruy. 0.83 m/s AoV Peak Grad 5.1 mmHg LVOT SV 65.78 mL AoV Mean Grad 3.1 mmHg AoV VTI 0.217 m AoV Area VTI 3.03 cm2 AoV Area/ BSA (VTI) 1.53 cm/m2 Mitral Valve MV DT 309 (160-240 msec) MV PHT 90 msec MV Area PHT 2.46 cm2 MV VTI 0.229 m MV Area VTI 2.87 (4.0-6.0 cm2) Pulmonary Valve PV Vmax 1.08 (0.5-1.5 m/s) RVOT Peak Gr. 1.60 mmHg PV Peak Grad 4.6 mmHg RVOT Mean Gr. 0.75 mmHg PV Mean Grad 2.3 mmHg RVOT VTI 0.135 m PV VTI 0.233 m RVOT Vmax 0.63 m/s
[2021-06-02] MEDS: Heparin 5,000 UNITS/ML VIAL 5000 UNITS SC (06:54)
[2021-06-02 07:46] LABS: Troponin I 0.09 ng/mL (<0.06)
--- NOTE | 2021-06-02 12:27 | W.PM.DS.N ---
Date of service: 06/02/21 Time of Service: 12:27 DS: Diagnosis Discharge Diagnosis (1) COVID-19: Status: Acute Discharge Plan Disposition Patient Disposition: HOME Condition: Improving Discharge Details Reason For Visit: Covid pneumonitis, possible myocarditis Admit Date/Time: 06/01/21 19:28 Admit Provider: Jm Matthews Attending Provider: Jm Matthews Primary Care Provider: Jeffy Tineo Hospital Course Hospital Course: Mr Mckeon is a 61 male, unvaccinated for COVID-19, who recently visiting family in [facility]. He has developed one week of cough, MULLINS and pleuritic CP (only with cough, not with deep breathing). He also endorsed that he had diarrhea but it has since resolved. In ER findings of note for absence of fever, O2 sats low-mod 90s on RA. CXR with LLL pneumonia and/or atelectasis. CT chest w/o pulmonary emboli. Minimal dependent subsegmental atelectasis. Negative d-Dimer, trop 0.11 and EKG with minor nonspecific T-wave changes, though unchanged from baseline. COVID was positive. Denies loss of taste or smell. Does report PE about a year ago but says he was treated for only two weeks. His second troponin was also 0.11, third was 0.09. Remdesivir and dexamethasone per COVID-19 treatment protocol initiated. He required no supplemental oxygen during the course of this hospitalization. He remained afebrile. He will discharged to home with medrol 4mg daily for 3 days. He states he goes to the [facility] for care. F/U with them in 1-2 weeks. Return if develops shortness of air, MULLINS, fever. Home Meds and New Rx's Prescriptions: New Medrol 2 mg tablet 4 mg PO DAILY Qty: 6 RF: 0 Continued clotrimazole-betamethasone [Lotrisone] 15 GM cream 15 gm Topical RF: 0 omeprazole 20 MG capsule,delayed release(DR/EC) 20 mg PO DAILY Qty: 30 RF: 3 Discharge Instructions Instructions: COVID-19 (Coronavirus Disease 2019) (DC) Activity:: Activity as Tolerated Equipment/Supplies:: No Equipment Needed Diet:: Resume usual diet Discharge Orders Discharge Orders: Discharge Order (Routine); Ordered 06/02/21 Ordered By: Romario Albert DS: Summary Time Spent with Patient providing and/or coordinating discharge services: Greater than 30 minutes Status at Discharge Functional status at discharge: independent ambulation Overall status at discharge: patient is progressing back to baseline Mental Status: mental status grossly normal Speech and Movement: speech and movement normal Mood: congruent mood Affect: normal affect Exam Const General: cooperative, healthy appearing, comfortable and no acute distress Orientation: alert and awake HENMT Head: normal to inspection, normocephalic and atraumatic Face and sinus: normal facial exam Mouth: moist mucous membranes Eyes General: appearance normal, both eyes and all related structures Sclera: sclerae normal Neck Neck: normal visual inspection, full ROM, trachea midline, supple and nontender Chest Chest: normal inspection of the chest Resp Effort & Inspection: normal respiratory effort and able to speak in complete sentences Auscultation: diminished lung sounds bilaterally in the lower lung dee (Slightly) Cardio Rate: regular rate Rhythm: regular rhythm GI Palpation: soft, not firm, no guarding, no pulsatile masses and nontender Auscultation: normal bowel sounds Back/Spine/Pelvis Back: No back tenderness Skin General skin exam: no rashes or lesions noted Neuro General: patient alert, patient awake, moves all extremities and no focal motor deficits Cognition: normal cognition Speech: speech normal Gait: normal gait Sensory Exam: no sensory deficits noted Extrem General: normal to inspection, full ROM, capillary refill normal, no pedal edema and no calf tenderness Psych Appearance: grossly normal Mental Status: mental status grossly normal Speech and Movement: speech and movement normal Mood: congruent mood Affect: normal affect DS: Data Vitals/I&O Vitals and I&O: Vital Signs Temperature 36.9 C 06/02/21 09:30 Temperature Source Temporal Artery Scan 06/02/21 04:05 Pulse 58 L 06/02/21 10:01 Pulse 59 L 06/02/21 10:01 Respiratory Rate 17 06/02/21 10:01 Respiratory Effort 06/02/21 09:30 Respiratory Depth Normal 06/02/21 09:30 Respiratory Pattern Normal 06/02/21 09:30 Blood Pressure 110/67 06/02/21 10:01 Blood Pressure Mean 77 06/02/21 10:01 Blood Pressure Position Supine 06/02/21 04:05 Pulse Oximetry 92 06/02/21 10:01 Oxygen Delivery Method Room Air 06/02/21 09:30 Oxygen Flow Rate 0 06/02/21 09:30 Pain Level 0 06/02/21 09:30 Intake & Output 06/01/21 06/02/21 06/02/21 23:59 11:59 23:59 Intake Total 400 / 400 Output Total 200 / 200 300 / 300 Balance 200 / 200 -300 / -300 Weight 93.8 kg 93.8 kg Intake: Oral 400 / 400 Output: Urine 200 / 200 300 / 300 Other: Urine Color Light Ce Light Ce Urine Appearance Clear Clear Urine Odor Normal Voiding Methods Urinal Urinal Data Completed and Pending Labs on day of discharge: Labs from last 24 hours 06/02/21 06/01/21 06/01/21 06:50 19:45 17:30 WBC RBC Hgb Hct MCV MCH MCHC RDW Plt Count MPV Immature Gran % Neutrophils % Lymphocytes % Monocytes % Eosinophils % Basophils % Nucleated RBC % Absolute Neutrophils Absolute Lymphocytes Absolute Monocytes Absolute Eosinophils Absolute Basophils PT INR APTT D-Dimer Sodium Potassium Chloride Carbon Dioxide Anion Gap BUN Creatinine Estimated GFR/1.73 m2 Glucose Calcium Magnesium Total Bilirubin AST ALT Alkaline Phosphatase Troponin I 0.09 H* 0.11 H* NT-Pro-B Natriuret Pep Total Protein Albumin COVID-19 Source Nasal/Nares SARS-CoV-2 (PCR) POSITIVE A* 06/01/21 06/01/21 06/01/21 17:04 17:04 17:04 WBC 4.47 RBC 5.01 Hgb 15.8 Hct 46.3 MCV 92.4 MCH 31.5 MCHC 34.1 RDW 12.4 Plt Count 198 MPV 9.8 Immature Gran % 0.2 Neutrophils % 53.4 Lymphocytes % 33.3 Monocytes % 8.9 Eosinophils % 4.0 Basophils % 0.2 Nucleated RBC % 0 Absolute Neutrophils 2.38 Absolute Lymphocytes 1.49 Absolute Monocytes 0.40 Absolute Eosinophils 0.18 Absolute Basophils 0.01 PT 10.2 INR 1.0 APTT 24.5 D-Dimer 320 Sodium 140 Potassium 3.8 Chloride 104 Carbon Dioxide 23.9 Anion Gap 12.1 H BUN 15 Creatinine 1.3 Estimated GFR/1.73 m2 56.31 Glucose 175 H Calcium 8.8 Magnesium 2.1 Total Bilirubin 0.4 AST 26 ALT 39 Alkaline Phosphatase 78 Troponin I 0.11 H* NT-Pro-B Natriuret Pep 24 Total Protein 7.9 Albumin 3.9 COVID-19 Source SARS-CoV-2 (PCR) [facility] Surgical History Colonoscopy - MAC (11/23/16) EGD - MAC (11/23/16) Social History Smoking/Tobacco Use Status: Never Smoking risk assessment performed?: Yes Alcohol Intake: current Alcohol Intake frequency: holidays/special occasions only Drug use: Never Substance use type: does not use Do you feel safe at home: Yes Do you feel safe in your relationship?: Yes
== END 2021-06-02 14:45 | disposition home or self-care (01) | DRG 177 ==
LOC: ER 19:37 → ICU 21:30
PROVIDERS: Admitting Provider General Practice; Emergency Provider Physician Assistant; PCP Specialist/Technologist Athletic Trainer; Visit Provider General Practice
DX: U07.1 COVID-19 (principal); J12.82 Pneumonia due to coronavirus disease 2019; Z20.822 Contact with and (suspected) exposure to COVID-19; I51.4 Myocarditis, unspecified
CPT/HCPCS: 36415; 71275; 80053; 87635; 93005; 99291; 71045; 83735; 83880; 84484; 85025; 85379; 85610; 85730; 93010; 93306; 99222; 99239; J1100; J1644; J3490

== ENCOUNTER 2021-06-05 08:23 | Inpatient (IN) | payer MEDICAID, SELFPAY ==
[2021-06-05] VITALS (39 sets, daily range): BP systolic 108–137; BP diastolic 61–73; PULSE 45–82; RESP 12–25; TEMP 35.7–37.2; O2SAT 89–98
--- NOTE | 2021-06-05 08:15 | RT.EKG_ITS ---
APPROVED REPORT Exam: Resting ECG Reason for Exam: dizzy Patient Location: E HR:49 bpm ECG Measurements Heart Rate 49 AXIS UT 146 P 10 QRSd 108 QRS -36 QT 451 T -4 QTc 408 Conclusion Slow sinus arrhythmia...V-rate 41- 57, mean< 60 Left axis deviation...QRS axis (-30,-90) Low voltage, precordial leads...precordial leads <1.0mV
--- NOTE | 2021-06-05 08:42 | W.ED.GENAD ---
Discharge Plan Disposition Patient Disposition: [facility] INPATIENT Condition: Stable Discharge Details Chief Complaint: Dizzy/Sync Clinical Impression: COVID-19, Myocarditis due to 2019 novel coronavirus, Acute appendicitis, Shortness of breath Primary Care Provider: Jeffy Tineo ED Provider: Star Gerber Home Meds and New Rx's Prescriptions: No Action clotrimazole-betamethasone [Lotrisone] 15 GM cream 15 gm Topical RF: 0 omeprazole 20 MG capsule,delayed release(DR/EC) 20 mg PO DAILY Qty: 30 RF: 3 Medrol 2 mg tablet 4 mg PO DAILY Qty: 6 RF: 0 Medical Decision Making 61 yo male with hx of gerd who was admitted earlier this week for covid induced myocarditis, comes in with n/v, feeling lightheaded and abdominal pain as well as chest pain. He states he went to bed feeling okay but then aroud 2am started to have pain in his mid abdomen, center chest, dyspnea and n/v. He denies falls, thinks he had a fever earlier. He is intermittently dry heaving on exam. He has no focal motor or sensation deficits. Denies headaches, denies neck stiffness. He has clear lungs, and on abdominal exam has tenderness in the mid to lower abdomen. He is not hypoxic and is in sinus bradycardia with rates in the high 40's/low 50's. Given his symptoms will obtain troponin to evaluate for possible worsening myocarditis vs nstemi, and ct for pe as well given he is hypercoaguable being covid positive. Given the abdominal pain as well will obtain lipase and lfts along with cbc and metabolic panel and ct to evaluate for surgical pathology such as sbo vs cholecystitis among other pathology labs and imaging still pending, he feels much better after medications. patient still with troponin elevation at 0.11 likely from myocarditis from covid, had reassuring echo done on 06/02, normal EF no wall motion abnormalities. His ct shows findings consistent with appendicitis, no perforation or abscess. He feels better, and is machine tender on exam in the ruq and rlq. He has no chest pain. Discussed with Dr. Villafuerte and she has to discuss with her surgical team if they feel they can safely operate on this patient here. surgical team not comfortable bringing this patient to the OR due to his elevated troponin/myocarditis, remains stable. Will discuss with [facility] [place] about transfer spoke with general surgeon at [facility] [place]. Beckman who reviewed the case. He felt the patient would most benefit from 24 hours of IV antibiotics and reassess clinically given the myocarditis and covid + he would likely not do great on a ventilator for surgery. Discussed with Dr. Villafuerte who accepts for admission for iv antibiotics and reassesment in 24 hours. Pt agreeable with plan Differential Diagnosis Differential Diagnosis: covid, pancreatitis, pe, sbo Medical Records Medical records reviewed: Yes I reviewed the patient's medical records. Imaging Data Radiologic Study: Attestation: I personally reviewed and interpreted this imaging study as follows: Imaging: CT Scan Radiologist's impression: 1. No evidence pulmonary embolism, thoracic aortic dissection or aneurysm. 2. Stable bilateral basilar infiltrates. 3. Appendix measuring 1.3 cm in diameter with a thickened enhancing wall and periappendiceal inflammatory changes most suggestive of acute appendicitis. No abscess or pneumoperitoneum. 4. Two hypodense lesions in the posterior segment of the right lobe of the liver as described above. They show some nodular peripheral enhancement suggesting hepatic hemangioma. A nonemergent CT or MRI scan of the liver using the hepatic hemangioma protocol is recommended. 5. Results of this exam have been verbally communicated with provider. Lab Data Lab results reviewed: Yes I reviewed the patient's lab results. ECG Data Attestation: I personally reviewed and interpreted this ECG (s) as follows: Prior ECG tracings: available for review Interpretation: sinus bradycardia, rate of 50, no acute st t wave ischemic findings HPI General Mode of arrival: wheelchair. Date/Time Provider Initiated Documentation: 06/05/21 08:24. Limitations to Documentation: no limitations. Information obtained by: patient. History of Present Illness 61 year old M presents to the emergency department with the chief complaint of nausea and vomit, described as moderate, Patient started experiencing this hour(s) (6) and it has been constant. No relieving factors improve symptom(s), No exacerbating factors reported . Patient notes shortness of breath. Patient did receive the following treatments prior to arrival, none Related Data Home Medications Medication Instructions Recorded Confirmed clotrimazole-betamethasone 15 gm TOPICAL 10/16/16 [Lotrisone] omeprazole 20 mg PO DAILY #30 capsule. 11/23/16 06/01/21 methylprednisolone [Medrol] 4 mg PO DAILY #6 tab 06/02/21 Previous Rx's Medication Instructions Recorded omeprazole 20 mg PO DAILY #30 capsule. 11/23/16 methylprednisolone [Medrol] 4 mg PO DAILY #6 tab 06/02/21 Allergies Allergy/AdvReac Type Severity Reaction Status Date / Time naproxen sodium [From Aleve] Allergy Skin Rash Unverified 06/05/21 09:15 aspirin AdvReac GI Bleeding Unverified 06/05/21 09:15 General JACK: 3 Review of Systems All systems reviewed & are unremarkable except as noted in HPI and below Constitutional Constitutional: Denies chills Respiratory Respiratory: Denies cough Genitourinary Genitourinary: Denies dysuria Musculoskeletal Musculoskeletal: Denies joint swelling Integumentary/Breasts Skin/Breast: Denies rash [facility] Surgical History Colonoscopy - MAC (11/23/16) EGD - MAC (11/23/16) Social History Smoking/Tobacco Use Status: Never Smoking risk assessment performed?: Yes Alcohol Intake: current Alcohol Intake frequency: holidays/special occasions only Drug use: Never Substance use type: does not use Do you feel safe at home: Yes Do you feel safe in your relationship?: Yes Exam Const General: other (intermittent vomit) Orientation: alert HENMT Head: normal to inspection Ears: external ears normal General nose exam: external nose normal Mouth: moist mucous membranes Eyes General: appearance normal, both eyes and all related structures Neck Neck: normal visual inspection Resp Effort & Inspection: normal respiratory effort and able to speak in complete sentences Cardio Rate: tachycardic GI Palpation: tender Skin General skin exam: no rashes or lesions noted Neuro General: patient alert and patient oriented x3 Extrem General: normal to inspection Psych Mental Status: mental status grossly normal
[2021-06-05] MEDS: HYDROmorphone 2 MG/ML VIAL 1 MG IVP (09:01)
[2021-06-05] MEDS: Normal Saline 1,000 ML 1000 ML IV (09:02)
[2021-06-05] MEDS: Ondansetron 4 MG/2 ML VIAL IVP ×3 (09:02→20:31)
[2021-06-05] MEDS: Omnipaque 350 MG/ML 100 ML BTL IJ (09:12)
[2021-06-05] MEDS: Normal Saline - Diluent 50 ML VIAL IV (09:13)
[2021-06-05] MEDS: Normal Saline Flush 10 ML SYR IVP ×3 (09:13→20:32)
--- NOTE | 2021-06-05 09:30 | DI.CT_ITS ---
Exam(s) CT CHEST PE ABD PELVIS W EXAM: CT CHEST PE ABD PELVIS W CLINICAL HISTORY: covid +, abdominal pain worsening dyspnea. TECHNIQUE: Imaging Protocol: Axial CT angiography was performed with multi-slice acquisition and mu lti-planar and/or 3D reconstructions. CONTRAST MATERIAL: Intravenous: Omnipaque 350 Contrast volume:100 mL COMPARISON: CT CT CHEST PE CTA from 06/01/2021 FINDINGS: CHEST: Pulmonary Arteries: No evidence of filling defect to suggest pulmonary emboli. Tracheobronchial tree: Patent where visualized. Mediastinum and Carmenza: No dominant adenopathy or fluid collection. Hiatal hernia. Pulmonary parenchyma: Stable basilar infiltrates. No new infiltrates are seen. No architectural dis tortion. Pleura: No effusion or pneumothorax. Heart: The heart is at the upper limits of normal to mildly enlarged. No coronary artery calcificati ons are seen. No pericardial effusion. Aorta: Thoracic aorta non-dilated. Mild atherosclerosis. No evidence of dissection. Bones: Within normal limits for the patient's age. Soft tissues: Unremarkable. Thyroid gland: Unremarkable. ABDOMEN: Liver: Normal density. There are 2 lesions seen in the posterior segment of the right lobe of the juliano er. The larger measures 1.4 cm. The smaller measures 0.8 cm. They both show nodular peripheral enh ancement suggesting hepatic hemangiomas. No other hepatic lesions are identified. Portal, Superior Mesenteric, and Splenic Veins: Unremarkable. Gallbladder and Biliary Tract: No radiodense calculus or dilation. Pancreas: Normal density, no abnormal calcifications or inflammatory process. Fatty atrophy of the he ad of the pancreas. Spleen: Normal. Adrenals: No masses seen. Kidneys: Normal size, contour and axis. No radiodense stones or obstructive uropathy. No masses seen. Abdominal Aorta: Abdominal portion non-dilated. Minimal atherosclerosis. Bowel: No obstruction or bowel wall thickening. The appendix measures 1.3 cm in diameter with an enha ncing wall. There does appear to be some air in the tip of the appendix. Periappendiceal inflammato ry changes are present the findings are most suggestive of an acute appendicitis. Hiatal hernia. Peritoneal Cavity: No ascites, collection or mesenteric inflammatory response. No free air. Lymph Nodes: Within normal limits. Bones: Within normal limits for the patient's age. Soft Tissues: Bilateral fat containing inguinal hernia. PELVIS: Bladder: Symmetric distention, no gross wall thickening. Reproductive Organs: Enlarged prostate gland. Lymph Nodes: Within normal limits. Bones: Within normal limits. IMPRESSION: 1. No evidence pulmonary embolism, thoracic aortic dissection or aneurysm. 2. Stable bilateral basilar infiltrates. 3. Appendix measuring 1.3 cm in diameter with a thickened enhancing wall and periappendiceal inflamma tory changes most suggestive of acute appendicitis. No abscess or pneumoperitoneum. 4. Two hypodense lesions in the posterior segment of the right lobe of the liver as described above. They show some nodular peripheral enhancement suggesting hepatic hemangioma. A nonemergent CT or MR I scan of the liver using the hepatic hemangioma protocol is recommended. 5. Results of this exam have been verbally communicated with provider. Incidental Findings RADIATION DOSE DELIVERED: 1,633.38mGy.cm Total DLP DATA REPOSITORY: All CT scans at this facility are submitted to the National Radiology Data Registry (NRDR) Dose Index Registry (DIR) with the [employer] (A[employer]). RADIATION OPTIMIZATION: All CT scans at this facility use at least one of these dose optimization te chniques: automated exposure control; mA and/or kV adjustment per patient size (includes targeted exa ms where dose is matched to clinical indication); or iterative reconstruction.
[2021-06-05 09:51] LABS: Abs Immature Grans 0.05 10^3/uL (0.0-0.06); Absolute Basophil Count 0.02 10^3/uL (0.0-0.2); Absolute Eosinophil Count 0.02 10^3/uL (0.0-0.7); Absolute Lymphocyte Count 1.01 10^3/uL (1.2-3.4); Absolute Neutrophil Count 7.24 10^3/uL (1.2-6.7); BE (Venous) 4 mmol/L (-2-3); Basophils % 0.2; Eosinophils % 0.2; HCO3 (Venous) 30 mmol/L (23-28); Immature Grans % 0.6; Lymphocytes % 11.4; MCH 31.5 pg (27.0-33.0); MCV 92.5 fL (80-95); MPV 9.6 fL (8.0-11.0); Monocytes % 5.7; Neutrophils % 81.9; Nucleated RBC 0 %; O2 Sat (Venous) 37 %; Platelet Count 232 10^3/uL (130-400); RBC 5.08 10^6/uL (4.36-5.78); RDW 12.3 % (11.8-14.1); RDW-SD 42.6 fL; TCO2 (Venous) 27 mmol/L (24-29); WBC 8.84 10^3/uL (4.4-10.8); pCO2 (Venous) 55 mmHg (41-51); pH (Venous) 7.34 (7.31-7.41); pO2 (Venous) 23 mmHg
[2021-06-05 09:53] LABS: Lactate 1.5 mmol/L (0.6-1.4)
[2021-06-05 10:09] LABS: ALT 82 U/L (16-63); AST 47 U/L (15-37); Albumin 3.7 g/dL (3.4-5.0); Alkaline Phosphatase 92 U/L (46-116); Anion Gap 6.4 mmol/L (3-11); BUN 15 mg/dL (7-18); Bilirubin, Total 0.6 mg/dL (0.2-1.0); CO2 30.6 mmol/L (21.0-32.0); Calcium 8.5 mg/dL (8.5-10.1); Chloride 102 mmol/L (98-107); Glucose 140 mg/dL (74-106); Lipase 139 U/L (73-393); Magnesium 1.9 mg/dL (1.8-2.4); Sodium 139 mmol/L (136-145); Total Protein 7.6 g/dL (6.4-8.2)
[2021-06-05 10:14] LABS: Troponin I 0.11 ng/mL (<0.06)
[2021-06-05 10:25] LABS: Source Nasal/Nares
[2021-06-05] MEDS: PIPERACILLIN/TAZO 4.5 GM in Normal Saline 100 ML IVPB (10:34)
[2021-06-05 10:45] LABS: Bilirubin Negative (Negative); Blood Negative (Negative); Clarity Clear (Clear); Glucose Negative (Negative); Ketones Negative (Negative); Leukocyte Esterase Negative (Negative); Nitrite Negative (Negative); pH 5.5 (5-8)
[2021-06-05 11:12] LABS: COVID-19 PCR POSITIVE (Negative)
--- NOTE | 2021-06-05 13:04 | W.PM.HP.N ---
Date of service: 06/05/21 Time of Service: 13:04 Assessment and Plan Assessment and plan (1) Myocarditis due to 2019 novel coronavirus: Status: Acute (2) Acute appendicitis: Status: Acute Assessment and plan: pt is very poor candidate for anethesia due to his pulonary status and acute myocarditis [facility] tryig to treat the appyndix w/abx. If he does not improve in the next 48, will attempt to trasnfer to [facility] cont medical managment. Hospitaists consulted. 75 ins spent in counseltation. (3) Shortness of breath: Status: Acute (4) COVID-19: Status: Acute (5) Chest pain: Status: Acute (6) Elevated troponin: Status: Acute History of Present Illness Narrative: Pr was seen adn examined. He is coughing- but not coughing up anything. He denies fevers. He has not moved his bowels today. no headaches. No CP or SOB. no productive cough. no dysuria. no leg pain or swelling. He c/o being hungry. He does have signif discomfort in the upper abdomen. he denies any nausea. He has not had a BM toda and feels very bloated. Denies any dysuria. we discussed why we are not doing surgery. Both anethesia at [facility] and at [facility] feel that he is at too high of risk for complications- he is high risk for heart failure of an acute dysrthymia. Both anethesia groups, feel he would expect that he would be on the vent prolonged after surgery. [facility] surgery thinks a trial of nonoperative intervention and treatment w/ abx would be appropriate in this case. If he fails after 48hrs, we will send the pt back to [facility] for surgery and critical care. I did consult hosplist service for medical management his covid. From ED 06/05/21 1 yo male with hx of gerd who was admitted earlier this week for covid induced myocarditis, comes in with n/v, feeling lightheaded and abdominal pain as well as chest pain. He states he went to bed feeling okay but then aroud 2am started to have pain in his mid abdomen, center chest, dyspnea and n/v. He denies falls, thinks he had a fever earlier. He is intermittently dry heaving on exam. He has no focal motor or sensation deficits. Denies headaches, denies neck stiffness. He has clear lungs, and on abdominal exam has tenderness in the mid to lower abdomen. He is not hypoxic and is in sinus bradycardia with rates in the high 40's/low 50's. d/c summary from 06/02 Mr Mckeon is a 61 male, unvaccinated for COVID-19, who recently visiting family in [facility]. He has developed one week of cough, MULLINS and pleuritic CP (only with cough, not with deep breathing). He also endorsed that he had diarrhea but it has since resolved. In ER findings of note for absence of fever, O2 sats low-mod 90s on RA. CXR with LLL pneumonia and/or atelectasis. CT chest w/o pulmonary emboli. Minimal dependent subsegmental atelectasis. Negative d-Dimer, trop 0.11 and EKG with minor nonspecific T-wave changes, though unchanged from baseline. COVID was positive. Denies loss of taste or smell. Does report PE about a year ago but says he was treated for only two weeks. His second troponin was also 0.11, third was 0.09. Remdesivir and dexamethasone per COVID-19 treatment protocol initiated. He required no supplemental oxygen during the course of this hospitalization. He remained afebrile. He will discharged to home with medrol 4mg daily for 3 days. He states he goes to the [facility] ([facility]] for care. F/U with them in 1-2 weeks. Return if develops shortness of air, MULLINS, fever. Review of Systems All systems reviewed & are unremarkable except as noted in HPI and below PFSH Surgical History Colonoscopy - [facility] (11/23/16) EGD - [facility] (11/23/16) Social History Smoking/Tobacco Use Status: Never Smoking risk assessment performed?: Yes Alcohol Intake: current Alcohol Intake frequency: holidays/special occasions only Drug use: Never Substance use type: does not use Do you feel safe at home: Yes Do you feel safe in your relationship?: Yes Meds Allergies and Home Medications Allergies Allergy/AdvReac Type Severity Reaction Status Date / Time naproxen sodium [From Aleve] Allergy Skin Rash Unverified 06/05/21 09:15 aspirin AdvReac GI Bleeding Unverified 06/05/21 09:15 Home Medications Medication Instructions Recorded Confirmed Type clotrimazole-betamethasone 15 gm TOPICAL PRN 10/16/16 History [Lotrisone] omeprazole 20 mg PO DAILY #30 capsule. 11/23/16 06/05/21 Rx methylprednisolone [Medrol] 4 mg PO DAILY #6 tab 06/02/21 06/05/21 Rx Exam HENMT Head: normal to inspection Other: no jaundice. sclera are pink dentition poor Resp Effort & Inspection: normal respiratory effort and able to speak in complete sentences Auscultation: clear to auscultation bilaterally Cardio Rate: regular rate Rhythm: regular rhythm GI Palpation: soft Other: ildly tender in RLQ. He actually c/o pain more in the upper abdomin. He is passing gas, but hasn't not had a BM Results Labs Result diagrams: 06/05/21 09:45 06/05/21 09:45 Labs: Laboratory Results - last 24 hr 06/05/21 06/05/21 06/05/21 09:45 09:45 09:45 WBC RBC Hgb Hct MCV MCH MCHC RDW Plt Count MPV Immature Gran % Neutrophils % Lymphocytes % Monocytes % Eosinophils % Basophils % Nucleated RBC % Absolute Neutrophils Absolute Lymphocytes Absolute Monocytes Absolute Eosinophils Absolute Basophils VBG pH 7.34 VBG pCO2 55 H VBG pO2 23 VBG HCO3 30 H VBG Total CO2 27 VBG O2 Saturation 37 VBG Base Excess 4 H VBG Lactate 1.5 H Sodium 139 Potassium 4.0 Chloride 102 Carbon Dioxide 30.6 Anion Gap 6.4 BUN 15 Creatinine 1.0 Estimated GFR/1.73 m2 >= 60.00 Glucose 140 H Calcium 8.5 Magnesium 1.9 Total Bilirubin 0.6 AST 47 H ALT 82 H Alkaline Phosphatase 92 Troponin I 0.11 H* Total Protein 7.6 Albumin 3.7 Lipase 139 Urine Color Urine Clarity Urine pH Ur Specific [place] Urine Protein Urine Ketones Urine Blood Urine Nitrite Urine Bilirubin Urine Urobilinogen Ur Leukocyte Esterase Urine Glucose COVID-19 Source SARS-CoV-2 (PCR) 06/05/21 06/05/21 06/05/21 09:45 10:10 10:25 WBC 8.84 RBC 5.08 Hgb 16.0 Hct 47.0 MCV 92.5 MCH 31.5 MCHC 34.0 RDW 12.3 Plt Count 232 MPV 9.6 Immature Gran % 0.6 Neutrophils % 81.9 Lymphocytes % 11.4 Monocytes % 5.7 Eosinophils % 0.2 Basophils % 0.2 Nucleated RBC % 0 Absolute Neutrophils 7.24 H Absolute Lymphocytes 1.01 L Absolute Monocytes 0.50 Absolute Eosinophils 0.02 Absolute Basophils 0.02 VBG pH VBG pCO2 VBG pO2 VBG HCO3 VBG Total CO2 VBG O2 Saturation VBG Base Excess VBG Lactate Sodium Potassium Chloride Carbon Dioxide Anion Gap BUN Creatinine Estimated GFR/1.73 m2 Glucose Calcium Magnesium Total Bilirubin AST ALT Alkaline Phosphatase Troponin I Total Protein Albumin Lipase Urine Color Yellow Urine Clarity Clear Urine pH 5.5 Ur Specific [place] 1.010 Urine Protein Negative Urine Ketones Negative Urine Blood Negative Urine Nitrite Negative Urine Bilirubin Negative Urine Urobilinogen 1.0 H Ur Leukocyte Esterase Negative Urine Glucose Negative COVID-19 Source Nasal/Nares SARS-CoV-2 (PCR) POSITIVE A* Last Vital Signs Temp 36.5 C 06/05/21 11:09 Pulse 60 06/05/21 11:16 Resp 19 06/05/21 11:20 BP 108/62 06/05/21 11:16 Pulse Ox 95 06/05/21 11:20
--- NOTE | 2021-06-05 13:21 | NUR.NOTE ---
Nursing Note: 06/05/21 Pt requests that sandeep renteria with his drivers id, bank card ([facility]), $341 in bills with a old 2 dollar bill in addition. Also has some old cards and a insurance card. Pt would like his myra to be picked up by his sister Eve Mckeon home [phone] mobile number.
[2021-06-05] MEDS: Acetaminophen 500 MG TAB 1000 MG PO ×3 (13:28→23:53)
[2021-06-05] MEDS: Pantoprazole 40 MG VIAL IVP (13:35)
--- NOTE | 2021-06-05 13:59 | NUR.NOTE ---
Nursing Note:Certified Orthotist to orange picker machine operator wallet, which has been double counted by nurse/pt as well as verified with this nurse and Sree Hardin RN. Wallet clean bagged, sealed with pt stickers and doubled signed by same nurses. Pt would like his sister, Eve Mckeon to orange picker machine operator wallet for safe keeping. Certified Orthotist will distribute to sister when she presents to [facility] to collect item.
--- NOTE | 2021-06-05 14:07 | NUR.NOTE ---
Nursing Note: Sister presented to ED, wallet collected after identification as Eve Mckeon confirmed by [employer]. Dispensed by this nurse with sticker closure intact, in front of access staff.
[2021-06-05] MEDS: Enoxaparin 40 MG/0.4 ML SYR SC (16:10)
[2021-06-05] MEDS: Normal Saline 1,000 ML 100 ML IV (16:11)
[2021-06-05] MEDS: MORPHine 2 MG/ML SYR IVP ×3 (16:11→23:59)
--- NOTE | 2021-06-05 16:47 | W.MEDCONSULT ---
Date of service: 06/05/21 Time of Service: 16:47 Assessment and Plan Assessment and plan (1) Acute appendicitis: Status: Acute Assessment and plan: Gen Surg managing currently with antibiotics. (2) COVID-19: Status: Acute Assessment and plan: Admitted on 06/01/21 after appx one week of cough, MULLINS. Not vaccinated. No supplemental O2 needs currently. No steroid or Remdesivir. Encourage proning. (3) Elevated troponin: Status: Acute Assessment and plan: Troponin 0.11. Similar to last admission. Question of myocarditis d/t covid. Trend. History of Present Illness History of Present Illness Chief Complaint: Abd pain, N/V Narrative: This is a 61 yo male with a h/o COVID, admitted on 06/01/21 and discharged the following day w/o supplemental O2 needs. He presented to the ED now with N/V, abd pain and feeling lightheaded. At appx 2 am on the morning of admission he noted mid abd pain with n/v and dyspnea. He felt like may have had a fever but didn't take his temp. Lab showed a normal WBC count and Hgb. Electrolytes normal. CT chest/abd/pelvis showed bilateral basilar infiltrates. No pulmonary embolism. Appendix noted to measure 1.3 cm with thickened enhancing wall and periappendiceal inflammatory changes. Gen surgery consulted. The case was discussed with [facility] surgery for possible transfer. Dr Beckman reviewed the case and suggested he would benefit from 24 hours of IV antibiotics and reassess in the AM. There is a concern regarding mechanically ventilating this patient with active covid. Consulted for medical management. [facility] Surgical History Colonoscopy - [facility] (11/23/16) EGD - [facility] (11/23/16) Social History Smoking/Tobacco Use Status: Never Smoking risk assessment performed?: Yes Alcohol Intake: current Alcohol Intake frequency: holidays/special occasions only Drug use: Never Substance use type: does not use Do you feel safe at home: Yes Do you feel safe in your relationship?: Yes Exam Const General: cooperative, no acute distress and ill appearing Orientation: alert and oriented x3 Eyes General: appearance normal, both eyes and all related structures Sclera: sclerae normal Resp Effort & Inspection: normal respiratory effort Auscultation: clear to auscultation bilaterally Cardio Rate: regular rate Rhythm: regular rhythm Heart Sounds: S1 normal and S2 normal GI Palpation: soft and tender in the RLQ Skin General skin exam: no rashes or lesions noted Extrem General: no pedal edema and no calf tenderness Psych Appearance: grossly normal Mental Status: mental status grossly normal Mood: congruent mood Affect: normal affect Attitude: cooperative Results Last Vital Signs Temp 35.7 C L 06/05/21 14:14 Pulse 74 06/05/21 15:00 Resp 14 06/05/21 14:14 BP 111/63 06/05/21 14:14 Pulse Ox 90 L 06/05/21 14:14 Labs Result diagrams: 06/05/21 09:45 06/05/21 09:45 Labs: Laboratory Results - last 24 hr 06/05/21 06/05/21 06/05/21 09:45 09:45 09:45 WBC RBC Hgb Hct MCV MCH MCHC RDW Plt Count MPV Immature Gran % Neutrophils % Lymphocytes % Monocytes % Eosinophils % Basophils % Nucleated RBC % Absolute Neutrophils Absolute Lymphocytes Absolute Monocytes Absolute Eosinophils Absolute Basophils VBG pH 7.34 VBG pCO2 55 H VBG pO2 23 VBG HCO3 30 H VBG Total CO2 27 VBG O2 Saturation 37 VBG Base Excess 4 H VBG Lactate 1.5 H Sodium 139 Potassium 4.0 Chloride 102 Carbon Dioxide 30.6 Anion Gap 6.4 BUN 15 Creatinine 1.0 Estimated GFR/1.73 m2 >= 60.00 Glucose 140 H Calcium 8.5 Magnesium 1.9 Total Bilirubin 0.6 AST 47 H ALT 82 H Alkaline Phosphatase 92 Troponin I 0.11 H* Total Protein 7.6 Albumin 3.7 Lipase 139 Urine Color Urine Clarity Urine pH Ur Specific [place] Urine Protein Urine Ketones Urine Blood Urine Nitrite Urine Bilirubin Urine Urobilinogen Ur Leukocyte Esterase Urine Glucose COVID-19 Source SARS-CoV-2 (PCR) 06/05/21 06/05/21 06/05/21 09:45 10:10 10:25 WBC 8.84 RBC 5.08 Hgb 16.0 Hct 47.0 MCV 92.5 MCH 31.5 MCHC 34.0 RDW 12.3 Plt Count 232 MPV 9.6 Immature Gran % 0.6 Neutrophils % 81.9 Lymphocytes % 11.4 Monocytes % 5.7 Eosinophils % 0.2 Basophils % 0.2 Nucleated RBC % 0 Absolute Neutrophils 7.24 H Absolute Lymphocytes 1.01 L Absolute Monocytes 0.50 Absolute Eosinophils 0.02 Absolute Basophils 0.02 VBG pH VBG pCO2 VBG pO2 VBG HCO3 VBG Total CO2 VBG O2 Saturation VBG Base Excess VBG Lactate Sodium Potassium Chloride Carbon Dioxide Anion Gap BUN Creatinine Estimated GFR/1.73 m2 Glucose Calcium Magnesium Total Bilirubin AST ALT Alkaline Phosphatase Troponin I Total Protein Albumin Lipase Urine Color Yellow Urine Clarity Clear Urine pH 5.5 Ur Specific [place] 1.010 Urine Protein Negative Urine Ketones Negative Urine Blood Negative Urine Nitrite Negative Urine Bilirubin Negative Urine Urobilinogen 1.0 H Ur Leukocyte Esterase Negative Urine Glucose Negative COVID-19 Source Nasal/Nares SARS-CoV-2 (PCR) POSITIVE A* 06/05/21 11:49 WBC RBC Hgb Hct MCV MCH MCHC RDW Plt Count MPV Immature Gran % Neutrophils % Lymphocytes % Monocytes % Eosinophils % Basophils % Nucleated RBC % Absolute Neutrophils Absolute Lymphocytes Absolute Monocytes Absolute Eosinophils Absolute Basophils VBG pH VBG pCO2 VBG pO2 VBG HCO3 VBG Total CO2 VBG O2 Saturation VBG Base Excess VBG Lactate Sodium Potassium Chloride Carbon Dioxide Anion Gap BUN Creatinine Estimated GFR/1.73 m2 Glucose Calcium Magnesium Total Bilirubin AST ALT Alkaline Phosphatase Troponin I Cancelled Total Protein Albumin Lipase Urine Color Urine Clarity Urine pH Ur Specific [place] Urine Protein Urine Ketones Urine Blood Urine Nitrite Urine Bilirubin Urine Urobilinogen Ur Leukocyte Esterase Urine Glucose COVID-19 Source SARS-CoV-2 (PCR)
[2021-06-05 18:08] LABS: Troponin I 0.11 ng/mL (<0.06)
[2021-06-06] VITALS (7 sets, daily range): BP systolic 110–148; BP diastolic 66–72; PULSE 63–76; RESP 18–22; TEMP 36.4–36.6; O2SAT 89–94
[2021-06-06] MEDS: Normal Saline 1,000 ML 100 ML IV ×2 (01:58→12:35)
[2021-06-06] MEDS: Ondansetron 4 MG/2 ML VIAL IVP ×2 (05:42→14:10)
[2021-06-06] MEDS: MORPHine 2 MG/ML SYR IVP ×3 (05:42→14:10)
[2021-06-06] MEDS: Acetaminophen 500 MG TAB 1000 MG PO (05:42)
[2021-06-06 07:11] LABS: Abs Immature Grans 0.03 10^3/uL (0.0-0.06); Absolute Basophil Count 0.02 10^3/uL (0.0-0.2); Absolute Eosinophil Count 0.01 10^3/uL (0.0-0.7); Absolute Lymphocyte Count 0.74 10^3/uL (1.2-3.4); Absolute Monocyte Count 0.72 10^3/uL (0.1-0.8); Absolute Neutrophil Count 8.83 10^3/uL (1.2-6.7); Basophils % 0.2; Eosinophils % 0.1; HCT 41.9 % (40.0-50.0); HGB 14.5 g/dL (13.5-17.5); Immature Grans % 0.3; Lymphocytes % 7.1; MCH 31.9 pg (27.0-33.0); MCHC 34.6 % (32.0-36.0); MCV 92.3 fL (80-95); MPV 9.5 fL (8.0-11.0); Neutrophils % 85.3; Nucleated RBC 0 %; Platelet Count 221 10^3/uL (130-400); RBC 4.54 10^6/uL (4.36-5.78); RDW 12.6 % (11.8-14.1); RDW-SD 42.8 fL; WBC 10.35 10^3/uL (4.4-10.8)
[2021-06-06 07:26] LABS: C-Reactive Protein 6.56 mg/dL (0.0-0.3)
[2021-06-06 07:50] LABS: D-Dimer 375 ng/mlFEU (<500)
[2021-06-06 08:20] LABS: Troponin I 0.07 ng/mL (<0.06)
--- NOTE | 2021-06-06 08:52 | INITIAL_ITS ---
- If Service Date Differs Date of service: 06/06/21 Time of Service: 08:52 Care Management Initial Assess REASON FOR HOSPITALIZATION:: Acute Appendicitis PAST MEDICAL HISTORY/PAST SURGICAL HISTORY:: Surgical History . Colonoscopy - [facility] (11/23/16). EGD - [facility] (11/23/16) CURRENT FUNCTIONAL STATUS:: Demetris was transferred to [facility] for an appendectomy before CM could meet with him. ADVANCE DIRECTIVES:: Not on file Has patient been provided with info about the portal/API?: Yes Did the patient sign up for the portal?: No CODE STATUS:: Full Code INSURANCE COVERAGE / FINANCIAL ISSUES:: Medicaid PRIMARY CARE PHYSICIAN:: Jeffy Tineo PATIENT/FAMILY EDUCATION NEEDS:: Review of transfer plans, ask me three. TRANSPORTATION:: EMS to [facility] arranged by nursing telephone supervisor PLAN:: Transfer to [facility] for an appendectomy and critical care for postop period to care for his Covid and Covid cardiac symptoms.
[2021-06-06] MEDS: Pantoprazole 40 MG VIAL IVP (09:14)
[2021-06-06] MEDS: Normal Saline Flush 10 ML SYR IVP ×3 (09:15→14:10)
--- NOTE | 2021-06-06 09:41 | W.PM.PROGNOT ---
Date of Service Date of service: 06/06/21 Time of Service: 09:41 Objective Last Vital Signs Temp 97.7 F 06/06/21 08:45 Pulse 63 06/06/21 08:45 Resp 22 06/06/21 08:45 BP 148/72 H 06/06/21 08:45 Pulse Ox 92 06/06/21 08:45 Laboratory Results - last 24 hr 06/05/21 06/05/21 06/05/21 09:45 09:45 09:45 WBC RBC Hgb Hct MCV MCH MCHC RDW Plt Count MPV Immature Gran % Neutrophils % Lymphocytes % Monocytes % Eosinophils % Basophils % Nucleated RBC % Absolute Neutrophils Absolute Lymphocytes Absolute Monocytes Absolute Eosinophils Absolute Basophils D-Dimer VBG pH 7.34 VBG pCO2 55 H VBG pO2 23 VBG HCO3 30 H VBG Total CO2 27 VBG O2 Saturation 37 VBG Base Excess 4 H VBG Lactate 1.5 H Sodium 139 Potassium 4.0 Chloride 102 Carbon Dioxide 30.6 Anion Gap 6.4 BUN 15 Creatinine 1.0 Estimated GFR/1.73 m2 >= 60.00 Glucose 140 H Calcium 8.5 Magnesium 1.9 Total Bilirubin 0.6 AST 47 H ALT 82 H Alkaline Phosphatase 92 Troponin I 0.11 H* C-Reactive Protein Total Protein 7.6 Albumin 3.7 Lipase 139 Urine Color Urine Clarity Urine pH Ur Specific [place] Urine Protein Urine Ketones Urine Blood Urine Nitrite Urine Bilirubin Urine Urobilinogen Ur Leukocyte Esterase Urine Glucose COVID-19 Source SARS-CoV-2 (PCR) 06/05/21 06/05/21 06/05/21 09:45 10:10 10:25 WBC 8.84 RBC 5.08 Hgb 16.0 Hct 47.0 MCV 92.5 MCH 31.5 MCHC 34.0 RDW 12.3 Plt Count 232 MPV 9.6 Immature Gran % 0.6 Neutrophils % 81.9 Lymphocytes % 11.4 Monocytes % 5.7 Eosinophils % 0.2 Basophils % 0.2 Nucleated RBC % 0 Absolute Neutrophils 7.24 H Absolute Lymphocytes 1.01 L Absolute Monocytes 0.50 Absolute Eosinophils 0.02 Absolute Basophils 0.02 D-Dimer VBG pH VBG pCO2 VBG pO2 VBG HCO3 VBG Total CO2 VBG O2 Saturation VBG Base Excess VBG Lactate Sodium Potassium Chloride Carbon Dioxide Anion Gap BUN Creatinine Estimated GFR/1.73 m2 Glucose Calcium Magnesium Total Bilirubin AST ALT Alkaline Phosphatase Troponin I C-Reactive Protein Total Protein Albumin Lipase Urine Color Yellow Urine Clarity Clear Urine pH 5.5 Ur Specific [place] 1.010 Urine Protein Negative Urine Ketones Negative Urine Blood Negative Urine Nitrite Negative Urine Bilirubin Negative Urine Urobilinogen 1.0 H Ur Leukocyte Esterase Negative Urine Glucose Negative COVID-19 Source Nasal/Nares SARS-CoV-2 (PCR) POSITIVE A* 06/05/21 06/05/21 06/06/21 11:49 17:46 06:52 WBC RBC Hgb Hct MCV MCH MCHC RDW Plt Count MPV Immature Gran % Neutrophils % Lymphocytes % Monocytes % Eosinophils % Basophils % Nucleated RBC % Absolute Neutrophils Absolute Lymphocytes Absolute Monocytes Absolute Eosinophils Absolute Basophils D-Dimer VBG pH VBG pCO2 VBG pO2 VBG HCO3 VBG Total CO2 VBG O2 Saturation VBG Base Excess VBG Lactate Sodium Potassium Chloride Carbon Dioxide Anion Gap BUN Creatinine Estimated GFR/1.73 m2 Glucose Calcium Magnesium Total Bilirubin AST ALT Alkaline Phosphatase Troponin I Cancelled 0.11 H* 0.07 H C-Reactive Protein 6.56 H Total Protein Albumin Lipase Urine Color Urine Clarity Urine pH Ur Specific [place] Urine Protein Urine Ketones Urine Blood Urine Nitrite Urine Bilirubin Urine Urobilinogen Ur Leukocyte Esterase Urine Glucose COVID-19 Source SARS-CoV-2 (PCR) 06/06/21 06/06/21 06/06/21 06:52 06:52 06:52 WBC 10.35 RBC 4.54 Hgb 14.5 Hct 41.9 MCV 92.3 MCH 31.9 MCHC 34.6 RDW 12.6 Plt Count 221 MPV 9.5 Immature Gran % 0.3 Neutrophils % 85.3 Lymphocytes % 7.1 Monocytes % 7.0 Eosinophils % 0.1 Basophils % 0.2 Nucleated RBC % 0 Absolute Neutrophils 8.83 H Absolute Lymphocytes 0.74 L Absolute Monocytes 0.72 Absolute Eosinophils 0.01 Absolute Basophils 0.02 D-Dimer 375 VBG pH VBG pCO2 VBG pO2 VBG HCO3 VBG Total CO2 VBG O2 Saturation VBG Base Excess VBG Lactate Sodium Potassium Chloride Carbon Dioxide Anion Gap BUN Creatinine Estimated GFR/1.73 m2 Glucose Calcium Magnesium Total Bilirubin AST ALT Alkaline Phosphatase Troponin I Cancelled C-Reactive Protein Total Protein Albumin Lipase Urine Color Urine Clarity Urine pH Ur Specific [place] Urine Protein Urine Ketones Urine Blood Urine Nitrite Urine Bilirubin Urine Urobilinogen Ur Leukocyte Esterase Urine Glucose COVID-19 Source SARS-CoV-2 (PCR)
[2021-06-06] MEDS: Prochlorperazine 10 MG/2 ML VIAL IVP (09:45)
--- NOTE | 2021-06-06 09:54 | PHA.REVIEW ---
Pharmacy Admission Review - Admission Clinical Review (Last Reviewed 06/05/21 @ 22:18 by Praveena Villafuerte DO) Myocarditis due to 2019 novel coronavirus (Acute) Acute appendicitis (Acute) Shortness of breath (Acute) COVID-19 (Acute) Chest pain (Acute) Elevated troponin (Acute) naproxen sodium [From Aleve] Allergy (Unverified 06/05/21 09:15) Skin Rash aspirin Adverse Reaction (Unverified 06/05/21 09:15) GI Bleeding Resuscitation Status Full Code Height 5 ft 9 in Weight 81.647 kg - Renal Dosing Renal Dosing: BUN 15 mg/dL (7-18) 06/05/21 09:45 Creatinine 1.0 mg/dL (0.70-1.30) 06/05/21 09:45 Medications needing adjustments: Reviewed (Crcl ~78 mL/min current meds okay.) - Anticoagulation Anticoagulation: Hgb 14.5 g/dL (13.5-17.5) 06/06/21 06:52 Hct 41.9 % (40.0-50.0) 06/06/21 06:52 Plt Count 221 10^3/uL (130-400) 06/06/21 06:52 Creatinine 1.0 mg/dL (0.70-1.30) 06/05/21 09:45 DVT Prophylaxis: Reviewed Medications: Enoxaparin Therapeutic Anticoagulation: N/A - Opiate Usage Evaluate Pain Scale/Pains Meds: Reviewed Scheduled Bowel Reg ordered if on Opiates?: No (PT is NPO) - Relevant Labs Sodium 139 mmol/L (136-145) 06/05/21 09:45 Potassium 4.0 mmol/L (3.5-5.1) 06/05/21 09:45 Chloride 102 mmol/L (98-107) 06/05/21 09:45 Magnesium 1.9 mg/dL (1.8-2.4) 06/05/21 09:45 C-Reactive Protein 6.56 mg/dL (0.0-0.3) H 06/06/21 06:52 Electrolytes, C-Reactive P, ESR: Reviewed - DM Control DM Control: Glucose 140 mg/dL (74-106) H 06/05/21 09:45 Insulin Dosing: N/A - Heart Failure/VA Heart Failure/VA: Troponin I 0.07 ng/mL (<0.06) H 06/06/21 06:52 Troponin I Cancelled 06/06/21 06:52 EF%, GERONIMO's, B-Blockers, Diuretics: Reviewed - BP Control BP Control: Blood Pressure 148/72 Blood Pressure 129/70 Blood Pressure 110/66 If elevated: Reviewed (BP was a little elevated this morning but has been within normal limits most of this admission so far.) - Qtc Review If Elevated: N/A (QTc 408 on admission) - IV to PO Switch IV Medications: Reviewed - Home Meds Home Med List reviewed: Reviewed Relevent Home Meds Not ordered & why?: clotrimazole/betamethasone (unverified), methylprednisolone, omeprazole (has pantoprazole ordered). - Current meds Current Medication Order Review: Intervened (Discontinued a duplicate med order and DI meds that had already been given.) - Comments Comments/Follow Ups: Watch BP, labs and for med changes (IV to PO, possible need of BM meds). Antibiotic Activity - Pharmacy Antibiotic Review Pharmacy Antibiotic Activity: Reviewed, no change (zosyn ordered for appendicitis.)
--- NOTE | 2021-06-06 11:00 | W.PM.DS.N ---
Date of service: 06/06/21 Time of Service: 11:01 DS: Diagnosis Discharge Diagnosis (1) Myocarditis due to 2019 novel coronavirus: Status: Acute (2) Acute appendicitis: Status: Acute (3) Shortness of breath: Status: Acute (4) COVID-19: Status: Acute (5) Chest pain: Status: Acute (6) Elevated troponin: Status: Acute Discharge Plan Disposition Patient Disposition: [facility] Condition: Stable Discharge Details Reason For Visit: Acute Appendicitis Admit Date/Time: 06/05/21 12:50 Admit Provider: Praveena Villafuerte Attending Provider: Praveena Villafuerte Primary Care Provider: Jeffy Tineo Hospital Course Hospital Course: Patient was admitted at [facility] from 06/01 through 06/02 with acute Covid. He had been having chest pain and was diagnosed with myocarditis. He had a mild elevation of troponin at 1.11. He did have an echo done which showed preserved ejection fraction- 60% and normal valves for age. He was sent home on steroids. On 06/05 he came back to the emergency room department complaining of abdominal pain and nausea. He had a CT before performed which showed acute appendicitis. Anesthesia at [facility] does not feel comfortable doing anesthesia for his case. [facility] does not have the critical care network support manager to be able to care for this patient after surgery. He has a high risk of prolonged mechanical ventilation and further decompensation of his cardiac status. The case was discussed with [facility]. Because of his Covid and his myocarditis that he was felt to be a poor surgical candidate. We elected to try medical management of his appendicitis and treat him with antibiotics and see how he responds. He has been on 24 hours of Zosyn at this point. Today he has diffuse peritonitis, he is vomiting. He has a elevated CRP and a left shift on his CBC. He has been running a low-grade temp of 99 ?F. He is on 3 L of O2 and satting at 92%. At this point he has failed conservative medical management. [facility] has agreed to take him and he will be transferred to the service of Dr. Chen for appendectomy and critical care for in the postop period to care for his Covid and Covid cardiac symptoms. Home Meds and New Rx's Prescriptions: No Action clotrimazole-betamethasone [Lotrisone] 15 GM cream 15 gm Topical PRNRF: 0 omeprazole 20 MG capsule,delayed release(DR/EC) 20 mg PO DAILY Qty: 30 RF: 3 Medrol 2 mg tablet 4 mg PO DAILY Qty: 6 RF: 0 Discharge Instructions Activity:: transfer Diet:: npo DS: Summary Time Spent with Patient providing and/or coordinating discharge services: Greater than 30 minutes Status at Discharge Functional status at discharge: bed bound Overall status at discharge: patient is not back to baseline Mental Status: mental status grossly normal Speech and Movement: speech and movement normal Mood: congruent mood Affect: normal affect Exam Psych Mental Status: mental status grossly normal Speech and Movement: speech and movement normal Mood: congruent mood Affect: normal affect DS: Data Vitals/I&O Vitals and I&O: Vital Signs Temperature 36.5 C 06/06/21 08:45 Temperature Source Tympanic 06/06/21 08:45 Pulse 63 06/06/21 08:45 Pulse Rhythm Regular 06/06/21 04:41 Pulse 64 06/05/21 13:10 Respiratory Rate 22 06/06/21 08:45 Respiratory Effort 06/06/21 04:41 Respiratory Depth Normal 06/06/21 04:41 Respiratory Pattern Normal 06/06/21 04:41 Blood Pressure 148/72 H 06/06/21 08:45 Blood Pressure Mean 78 06/05/21 13:01 Blood Pressure Position Sitting 06/05/21 08:42 Pulse Oximetry 92 06/06/21 08:45 Oxygen Delivery Method Nasal Cannula 06/06/21 08:45 Oxygen Flow Rate 3 06/06/21 08:45 Pain Level 8 06/06/21 08:45 Comment 06/06/21 01:50 Intake & Output 06/05/21 06/05/21 06/06/21 11:59 23:59 11:59 Intake Total 1120 / 1170 50 / 1170 1078.333 / 1078.333 Output Total 550 / 550 350 / 350 Balance 1120 / 620 -500 / 620 728.333 / 728.333 Weight 81.647 kg 81.647 kg Intake: IV 1120 / 1170 50 / 1170 1078.333 / 1078.333 Output: Urine 550 / 550 350 / 350 Other: Urine Color Yellow Light Ce Urine Appearance Clear Clear Urine Odor None None Voiding Methods Urinal Urinal Data Completed and Pending Labs on day of discharge: Labs from last 24 hours 06/06/21 06/06/21 06/06/21 06:52 06:52 06:52 WBC 10.35 RBC 4.54 Hgb 14.5 Hct 41.9 MCV 92.3 MCH 31.9 MCHC 34.6 RDW 12.6 Plt Count 221 MPV 9.5 Immature Gran % 0.3 Neutrophils % 85.3 Lymphocytes % 7.1 Monocytes % 7.0 Eosinophils % 0.1 Basophils % 0.2 Nucleated RBC % 0 Absolute Neutrophils 8.83 H Absolute Lymphocytes 0.74 L Absolute Monocytes 0.72 Absolute Eosinophils 0.01 Absolute Basophils 0.02 D-Dimer 375 Troponin I Cancelled C-Reactive Protein SARS-CoV-2 (PCR) 06/06/21 06/05/21 06/05/21 06:52 17:46 11:49 WBC RBC Hgb Hct MCV MCH MCHC RDW Plt Count MPV Immature Gran % Neutrophils % Lymphocytes % Monocytes % Eosinophils % Basophils % Nucleated RBC % Absolute Neutrophils Absolute Lymphocytes Absolute Monocytes Absolute Eosinophils Absolute Basophils D-Dimer Troponin I 0.07 H 0.11 H* Cancelled C-Reactive Protein 6.56 H SARS-CoV-2 (PCR) 06/05/21 10:10 WBC RBC Hgb Hct MCV MCH MCHC RDW Plt Count MPV Immature Gran % Neutrophils % Lymphocytes % Monocytes % Eosinophils % Basophils % Nucleated RBC % Absolute Neutrophils Absolute Lymphocytes Absolute Monocytes Absolute Eosinophils Absolute Basophils D-Dimer Troponin I C-Reactive Protein SARS-CoV-2 (PCR) POSITIVE A* [facility] Surgical History Colonoscopy - [facility] (11/23/16) EGD - [facility] (11/23/16) Social History Smoking/Tobacco Use Status: Never Smoking risk assessment performed?: Yes Alcohol Intake: current Alcohol Intake frequency: holidays/special occasions only Drug use: Never Substance use type: does not use Do you feel safe at home: Yes Do you feel safe in your relationship?: Yes
--- NOTE | 2021-06-06 11:22 | DSE_ITS ---
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: Status: Acute (2) Acute appendicitis: Status: Acute (3) Shortness of breath: Status: Acute (4) COVID-19: Status: Acute (5) Chest pain: Status: Acute (6) Elevated troponin: Status: Acute Discharge Plan Disposition Patient Disposition: [facility] Condition: Stable Discharge Details Reason For Visit: Acute Appendicitis Admit Date/Time: 06/05/21 12:50 Admit Provider: Praveena Villafuerte Attending Provider: Praveena Villafuerte Primary Care Provider: Jeffy Tineo Hospital Course Hospital Course: Patient was admitted at [facility] from 06/01 through 06/02 with acute Covid. He had been having chest pain and was diagnosed with myocarditis. He had a mild elevation of troponin at 1.11. He did have an echo done which showed preserved ejection fraction- 60% and normal valves for age. He was sent home on steroids. On 06/05 he came back to the emergency room department complaining of abdominal pain and nausea. He had a CT before performed which showed acute appendicitis. Anesthesia at [facility] does not feel comfortable doing anesthesia for his case. [facility] does not have the critical care litigation support analyst to be able to care for this patient after surgery. He has a high risk of prolonged mechanical ventilation and further decompensation of his cardiac status. The case was discussed with [facility]. Because of his Covid and his myocarditis that he was felt to be a poor surgical candidate. We elected to try medical management of his appendicitis and treat him with antibiotics and see how he responds. He has been on 24 hours of Zosyn at this point. Today he has diffuse peritonitis, he is vomiting. He has a elevated CRP and a left shift on his CBC. He has been running a low-grade temp of 99 ?F. He is on 3 L of O2 and satting at 92%. At this point he has failed conservative medical management. [facility] has agreed to take him and he will be transferred to the service of Dr. Chen for appendectomy and critical care for in the postop period to care for his Covid and Covid cardiac symptoms. Home Meds and New Rx's Prescriptions: No Action clotrimazole-betamethasone [Lotrisone] 15 GM cream 15 gm Topical PRNRF: 0 omeprazole 20 MG capsule,delayed release(DR/EC) 20 mg PO DAILY Qty: 30 RF: 3 Medrol 2 mg tablet 4 mg PO DAILY Qty: 6 RF: 0 Discharge Instructions Stand Alone Forms: Nursing Discharge Form Activity:: transfer Diet:: npo Discharge Orders Discharge Orders: Discharge Order (Routine); Ordered 06/06/21 Ordered By: Praveena Villafuerte DS: Data Vitals/I&O Vitals and I&O: Vital Signs Temperature 97.7 F 06/06/21 08:45 Temperature Source Tympanic 06/06/21 08:45 Pulse 63 06/06/21 08:45 Pulse Rhythm Regular 06/06/21 08:00 Pulse 64 06/05/21 13:10 Respiratory Rate 22 06/06/21 08:45 Respiratory Effort 06/06/21 08:00 Respiratory Depth Normal 06/06/21 08:00 Respiratory Pattern Normal 06/06/21 08:00 Blood Pressure 148/72 H 06/06/21 08:45 Blood Pressure Mean 78 06/05/21 13:01 Blood Pressure Position Sitting 06/05/21 08:42 Pulse Oximetry 92 06/06/21 09:00 Oxygen Delivery Method Nasal Cannula 06/06/21 09:00 Oxygen Flow Rate 3 06/06/21 09:00 Pain Level 5 06/06/21 10:10 Comment 06/06/21 01:50 Intake & Output 06/05/21 06/05/21 06/06/21 11:59 23:59 11:59 Intake Total 1120 / 1170 50 / 1170 1148.333 / 1148.333 Output Total 550 / 550 800 / 800 Balance 1120 / 620 -500 / 620 348.333 / 348.333 Weight 180 lb 180 lb Intake: IV 1120 / 1170 50 / 1170 1148.333 / 1148.333 Output: Urine 550 / 550 600 / 600 Emesis 200 / 200 Other: Urine Color Yellow Dark Ce Urine Appearance Clear Clear Urine Odor None None Emesis Description Clear/Water Voiding Methods Urinal Urinal Data Completed and Pending Labs on day of discharge: Labs from last 24 hours 06/06/21 06/06/21 06/06/21 06:52 06:52 06:52 WBC 10.35 RBC 4.54 Hgb 14.5 Hct 41.9 MCV 92.3 MCH 31.9 MCHC 34.6 RDW 12.6 Plt Count 221 MPV 9.5 Immature Gran % 0.3 Neutrophils % 85.3 Lymphocytes % 7.1 Monocytes % 7.0 Eosinophils % 0.1 Basophils % 0.2 Nucleated RBC % 0 Absolute Neutrophils 8.83 H Absolute Lymphocytes 0.74 L Absolute Monocytes 0.72 Absolute Eosinophils 0.01 Absolute Basophils 0.02 D-Dimer 375 Troponin I Cancelled C-Reactive Protein 06/06/21 06/05/21 06/05/21 06:52 17:46 11:49 WBC RBC Hgb Hct MCV MCH MCHC RDW Plt Count MPV Immature Gran % Neutrophils % Lymphocytes % Monocytes % Eosinophils % Basophils % Nucleated RBC % Absolute Neutrophils Absolute Lymphocytes Absolute Monocytes Absolute Eosinophils Absolute Basophils D-Dimer Troponin I 0.07 H 0.11 H* Cancelled C-Reactive Protein 6.56 H PFSH Surgical History Colonoscopy - [facility] (11/23/16) EGD - [facility] (11/23/16) Social History Smoking/Tobacco Use Status: Never Smoking risk assessment performed?: Yes Alcohol Intake: current Alcohol Intake frequency: holidays/special occasions only Drug use: Never Substance use type: does not use Do you feel safe at home: Yes Do you feel safe in your relationship?: Yes
[2021-06-06] MEDS: ACETAMINOPHEN 1,000 MG/100 ML BTL 400 MG IVPB (12:35)
== END 2021-06-06 14:24 | disposition short-term general hospital (02) | DRG 393 ==
LOC: ER 13:22 → MS 14:11
PROVIDERS: Family Medicine; Admitting Provider Surgery; Emergency Provider Emergency Medicine; PCP Specialist/Technologist Athletic Trainer; Visit Provider Surgery
DX: K35.80 Unspecified acute appendicitis (principal); I40.0 Infective myocarditis; U07.1 COVID-19; B97.29 Other coronavirus as the cause of diseases classified elsewhere; R74.8 Abnormal levels of other serum enzymes; R06.02 Shortness of breath; R07.89 Other chest pain; K21.9 Gastro-esophageal reflux disease without esophagitis; R00.1 Bradycardia, unspecified; Z86.711 Personal history of pulmonary embolism
CPT/HCPCS: 36415; 71275; 74177; 80053; 82805; 83690; 87635; 93005; 96361; 96365; 96375; 99285; J1650; 81003; 83605; 83735; 84484; 85025; 85379; 86140; 93010; 99221; J0131; J0780; J2270; J2405; J2543; J3490

== ENCOUNTER 2022-06-03 12:11 | Emergency (ER) | payer MEDICAID, SELFPAY ==
[2022-06-03 12:23] VITALS: BP 126/85; PULSE 67; RESP 18; TEMP 36.4; O2SAT 97
--- NOTE | 2022-06-03 13:30 | DI.RAD_ITS ---
Exam(s) XR WRIST LT COMPLETE EXAM: XR WRIST LT COMPLETE CLINICAL HISTORY: cut on crystal flat grinder TECHNIQUE: COMPARISON: No exams were available for comparison FINDINGS: Three views were obtained. There is a small metallic foreign body lying in the soft tissues on the u lnar aspect of the thumb at the level of the head of the 1st metacarpal. No underlying fracture identified. IMPRESSION: RADIATION DOSE DELIVERED: Total DLP
--- NOTE | 2022-06-03 14:37 | ED.GENADUL_ITS ---
Discharge Plan Disposition Patient Disposition: HOME Condition: Stable Discharge Details Clinical Impression: Laceration of left wrist Primary Care Provider: Surinder Chen ED Provider: Radu Harris Home Meds and New Rx's Prescriptions: Continued clotrimazole-betamethasone [Lotrisone] 15 GM cream 15 gm Topical PRN omeprazole 20 MG capsule,delayed release(DR/EC) 20 mg PO DAILY Qty: 30 3RF Medrol 2 mg tablet 4 mg PO DAILY Qty: 6 0RF Rx Instructions: First dose on 06/03. Discharge Instructions Instructions: Laceration (ED) Additional Instructions: Laceration is well approximated and there is no active bleeding. The laceration occurred nearly 24 hours ago and is outside the window to safely repair. The wound has been thoroughly cleaned and dried, dressing applied. Change dressing daily. Please watch for new or worsening symptoms and return to the ER for any concerns Medical Decision Making 62-year-old gentleman, [id number], presents for a laceration of his left wrist on a cnc grinder that occurred yesterday nearly 24 hours ago. Patient states that his last updated tetanus was 1 year ago. Denies any other injury, numbness, tingling, weakness, signs of infection. Laceration is well approximated, no active bleeding or obvious foreign body. Will obtain x-ray to rule out foreign body and/or bony involvement. Laceration is outside the window for suturing, will need to repair by secondary means. Neuro, vascular, tendon intact. The wrist was thoroughly cleaned and dressed appropriately X-ray reveals a foreign body on the ulnar aspect of the thumb at the level of the head of the first metacarpal. Clinically this is unrelated to his recent injury. Patient tells me he injured that thumb with a knife many years ago. NAD at the site of his laceration today Standard discharge and return precautions were provided. Patient understands, is agreeable to this plan, and has no additional questions or concerns upon discharge. This documentation was generated using [employer] system, please disregard any oddities of phrase or misspellings. Medical Records Medical records reviewed: Yes I reviewed the patient's medical records. Imaging Data Radiologic Study: Attestation: I personally reviewed and interpreted this imaging study as follows: Imaging: X-Ray Radiologist's impression: Exam(s) XR WRIST LT COMPLETE EXAM: XR WRIST LT COMPLETE CLINICAL HISTORY: cut on cnc grinder TECHNIQUE: COMPARISON: No exams were available for comparison FINDINGS: Three views were obtained. There is a small metallic foreign body lying in the soft tissues on the ulnar aspect of the thumb at the level of the head of the 1st metacarpal. No underlying fracture identified. HPI General Mode of arrival: ambulatory . Date/Time Provider Initiated Documentation: 06/03/22 12:52 . Limitations to Documentation: no limitations . Information obtained by: patient . History of Present Illness 62 year old M presents to the emergency department with the chief complaint of L wrist lac, described as mild, with intensity rated at 2. Quality is described as aching, and is localized to the left and upper extremity. Patient reports no radiation. Patient started experiencing this hour(s) (24) and it has been constant. No relieving factors improve symptom(s), No exacerbating factors reported . Patient notes no other symptoms.. Patient did receive the following treatments prior to arrival, none Related Data Home Medications Medication Instructions Recorded Confirmed clotrimazole-betamethasone 1 15 gm topical PRN 10/16/16 %-0.05 % topical cream (Lotrisone) omeprazole 20 mg capsule,delayed 20 mg PO DAILY ##30 11/23/16 06/05/21 release methylprednisolone 2 mg tablet 4 mg PO DAILY #6 tabs 06/02/21 06/05/21 (Medrol) Previous Rx's Medication Instructions Recorded omeprazole 20 mg capsule,delayed 20 mg PO DAILY ##30 11/23/16 release methylprednisolone 2 mg tablet 4 mg PO DAILY #6 tabs 06/02/21 (Medrol) Allergies Allergy/AdvReac Type Severity Reaction Status Date / Time naproxen sodium [From Aleve] Allergy Skin Rash Unverified 06/05/21 09:15 aspirin AdvReac GI Bleeding Unverified 06/05/21 09:15 General Stated Complaint: Laceration JACK: 4 Review of Systems Constitutional Constitutional: Denies fever(s) and Denies weakness Musculoskeletal Musculoskeletal: Denies arthralgias, Denies numbness, Denies stiffness and Denies tingling Integumentary/Breasts Skin/Breast: Denies erythema Neurologic Neurologic: Denies numbness, Denies tingling and Denies weakness PFSH All Active Problems Laceration of left wrist (Acute) Myocarditis due to 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 coronavirus (Acute) Acute appendicitis (Acute) Shortness of breath (Acute) COVID-19 (Acute) Chest pain (Acute) Elevated troponin (Acute) Surgical History Colonoscopy - [facility] (11/23/16) EGD - [facility] (11/23/16) Social History Smoking/Tobacco Use Status: Never Smoking risk assessment performed?: Yes Alcohol Intake: current Alcohol Intake frequency: holidays/special occasions only Drug use: Never Substance use type: does not use Do you feel safe at home: Yes Do you feel safe in your relationship?: Yes Exam Const General: cooperative, healthy appearing, comfortable and no acute distress Orientation: alert and awake HENMT Head: normal to inspection, normocephalic and atraumatic Eyes Conjunctivae: conjunctivae normal Neck Neck: normal visual inspection, trachea midline and supple Resp Effort & Inspection: normal respiratory effort and able to speak in complete sentences Cardio Rate: regular rate Rhythm: regular rhythm Skin General skin exam: no rashes or lesions noted Neuro General: patient alert, patient awake, moves all extremities and no focal motor deficits Cognition: normal cognition Speech: speech normal Sensory Exam: no sensory deficits noted Extrem General: full ROM and capillary refill normal Hand/finger images: 1. There is a 1.5 cm well approximated laceration. There is no obvious foreign body, swelling, erythema, warmth, drainage. No signs of secondary infection. Neuro, vascular, tendon intact. Psych Appearance: grossly normal Mental Status: mental status grossly normal Course Vital Signs Vital signs: Vital Signs Temperature 36.4 C 06/03/22 12:23 Pulse 67 06/03/22 12:23 Respiratory Rate 18 06/03/22 12:23 Blood Pressure 126/85 06/03/22 12:23 Pulse Oximetry 97 06/03/22 12:23 Temperature 36.4 C 06/03/22 12:23 Temperature Source Temporal Artery Scan 06/03/22 12:23 Pulse 67 06/03/22 12:23 Respiratory Rate 18 06/03/22 12:23 Blood Pressure 126/85 06/03/22 12:23 Blood Pressure Position Sitting 06/03/22 12:23 Pulse Oximetry 97 06/03/22 12:23 Oxygen Delivery Method Room Air 06/03/22 12:23 Oxygen Flow Rate 0 06/03/22 12:23 Pain Level 6 06/03/22 12:23
== END 2022-06-03 15:00 | disposition home or self-care (01) ==
PROVIDERS: Emergency Provider Physician Assistant; PCP Family Medicine
DX: S61.512A Laceration without foreign body of left wrist, initial encounter (principal); W31.89XA Contact with other specified machinery, initial encounter
CPT/HCPCS: 99283; 73110; 99282

== ENCOUNTER 2023-01-09 11:18 | Emergency (ER) | payer MEDICAID, SELFPAY ==
[2023-01-09 11:23] VITALS: BP 113/68; PULSE 77; RESP 18; O2SAT 97
--- NOTE | 2023-01-09 11:33 | ED.GENADUL_ITS ---
Discharge Plan Disposition Patient Disposition: Home Condition: Stable Discharge Details Clinical Impression: Laceration of left lower leg Primary Care Provider: Surinder Chen ED Provider: Courtney Barnett Home Meds and New Rx's Prescriptions: New cephalexin 500 mg capsule 500 mg PO TID 4 Days Qty: 12 0RF Continued omeprazole 20 MG capsule,delayed release(DR/EC) 20 mg PO DAILY Qty: 30 3RF ibuprofen [Advil Liqui-Gel] 200 mg Capsule 800 mg PO DAILY Discharge Instructions Instructions: Laceration (ED) Additional Instructions: Keep wound clean and dry. Wash the area with soap and water once daily. Cover wound with bandage if risk of contamination and at bedtime. Otherwise you can keep the wound open to air if resting at home to allow edges to dry and heal. Keep your left leg elevated is much as possible. A prescription for antibiotics has been sent electronically to your pharmacy to take as directed until finished to prevent wound infection. Return to the emergency department in 10 days for suture removal. Return earlier at any time if you develop any concerning signs or symptoms such as fever, increased pain, redness or swelling. Discharge Data Discharge Date/Time-TO BE ENTERED AT DEPARTURE: 01/09/23 13:19 Discharge Physician: Courtney Barnett Medical Decision Making 62-year-old male presents with left leg laceration after working with a chainsaw that slipped and hit his boot and cut through his jeans to his left lower leg 3 hours ago. Patient reports tetanus up-to-date last year. Patient has a 3 cm linear laceration with a skin tear on the lateral aspect of the left anterior mid leg. Bleeding controlled. No obvious deformity. Neurovascularly intact. Will refer for x-ray to rule out foreign body or fracture. Will irrigate and closed with sutures. X-ray notes: FINDINGS: Bones/joints: No acute fracture or malalignment. Soft tissues: Unchanged 2 cm curvilinear metallic density in the medial lower leg. I did not see any previous imaging results of the leg for comparison but Vrad reports that this metallic density in the medial lower leg was seen before. It appears much smaller than 2 cm. Upon inspection and irrigation, I was able to remove two 3mm metallic appearing foreign bodies. Upon further inspection of wound, the medial side of the wound has 2 skin tears/flaps. Due to the location of the wound, it was difficult to achieve full approximation and a horizontal mattress sutures were placed in addition to simple interrupted. Discussed with patient that the wound may have difficulty healing due to skin tears and jagged appearance to wound. Advised on proper wound care, elevation to diminish s welling and to take antibiotics as directed until finished. He was given 1 dose of Keflex here and a prescription sent electronically to his pharmacy. A nonadherent dressing was placed. Advised return to the ED in 10 days for suture removal. Usual and customary return precautions given prior to discharge. Medical Records Medical records reviewed: Yes I reviewed the patient's medical records. Imaging Data Radiologic Study: Radiologist's impression: XR Left Tibia and Fibula Exam date and time: 01/09/2023 12:01 PM Age: 62 years old Clinical indication: Other: Hit in L mid anterior leg by chainsaw, laceration, R/O fb/fx TECHNIQUE: Imaging protocol: Radiologic exam of the left tibia and fibula. Views: 2 views. COMPARISON: CR XR knee LT 2V AP,lat 04/25/2019 10:09 AM FINDINGS: Bones/joints: No acute fracture or malalignment. Soft tissues: Unchanged 2 cm curvilinear metallic density in the medial lower leg. IMPRESSION: No acute fracture or malalignment. HPI General Mode of arrival: ambulatory . Date/Time Provider Initiated Documentation: 01/09/23 11:32 . Limitations to Documentation: no limitations . Information obtained by: patient . HPI Narrative: Patient is a 62-year-old male who presents to the ED with a left leg laceration sustained when working with a chainsaw and accidentally slipped and hit his boot and the surface of his jeans and went through to his leg 3 hours ago. He states he had a tetanus last year at [facility]. He denies any other injuries or known foreign bodies. Related Data Home Medications Medication Instructions Recorded Confirmed omeprazole 20 mg capsule,delayed 20 mg PO DAILY ##30 11/23/16 01/09/23 release cephalexin 500 mg capsule 500 mg PO TID 4 days #12 caps 01/09/23 ibuprofen 200 mg capsule (Advil 800 mg PO DAILY 01/09/23 01/09/23 Liqui-Gel) Previous Rx's Medication Instructions Recorded omeprazole 20 mg capsule,delayed 20 mg PO DAILY ##30 11/23/16 release cephalexin 500 mg capsule 500 mg PO TID 4 days #12 caps 01/09/23 Allergies Allergy/AdvReac Type Severity Reaction Status Date / Time naproxen sodium [From Aleve] Allergy Skin Rash Unverified 01/09/23 11:25 aspirin AdvReac GI Bleeding Unverified 01/09/23 11:25 General Stated Complaint: Laceration JACK: 4 Review of Systems All systems reviewed & are unremarkable except as noted in HPI and below Constitutional Constitutional: Reports as per HPI, Denies chills and Denies fever(s) Eyes Eyes: Denies blurry vision ENT Ears, Nose, Mouth, and Throat: Denies dizziness, Denies sore throat and Denies throat swelling Cardiovascular Cardiovascular: Denies chest pain and Denies dyspnea Respiratory Respiratory: Denies cough and Denies dyspnea Gastrointestinal Gastrointestinal: Denies abdominal pain, Denies diarrhea and Denies vomiting Genitourinary Genitourinary: Denies hematuria and Denies dysuria Musculoskeletal Musculoskeletal: Denies back pain and Denies numbness Integumentary/Breasts Skin/Breast: Denies lesions and Denies rash Neurologic Neurologic: Denies dizziness, Denies localized weakness and Denies numbness Allergic/Immunologic Allergic/Immunologic: Denies throat swelling PFSH All Active Problems (Updated 01/09/23 @ 13:04 by Courtney Barnett DO) Laceration of left lower leg (Acute) Myocarditis due to 2019 novel coronavirus (Acute) Acute appendicitis (Acute) Shortness of breath (Acute) COVID-19 (Acute) Chest pain (Acute) Elevated troponin (Acute) Medical History (Updated 01/09/23 @ 13:04 by Courtney Barnett DO) GERD (gastroesophageal reflux disease) Insomnia Surgical History Colonoscopy - MAC (11/23/16) EGD - MAC (11/23/16) Social History Smoking/Tobacco Use Status: Never Smoking risk assessment performed?: Yes Alcohol Intake: current Alcohol Intake frequency: holidays/special occasions only Drug use: Never Substance use type: does not use Do you feel safe at home: Yes Do you feel safe in your relationship?: Yes Exam Const General: cooperative, healthy appearing and no acute distress Orientation: alert, awake and oriented x3 HENMT Head: normal to inspection Mouth: oral mucosae normal Eyes General: appearance normal, both eyes and all related structures Neck Neck: normal visual inspection Resp Effort & Inspection: normal respiratory effort and able to speak in complete sentences Cardio Rate: regular rate Skin General skin exam: no rashes or lesions noted Neuro General: patient alert, patient awake and patient oriented x3 Motor: muscle tone normal throughout Extrem Upper/lower leg/hip images: 1. 3cm linear laceration with skin tear on lateral aspect. Bleeding controlled. There is minimal surrounding edema. There is also ecchymosis just superior to the laceration which appears yellowish-green and purple and likely old. No bony deformity noted Other: L DP/PT pulses intact. Psych Appearance: grossly normal Affect: normal affect Course Vital Signs Vital signs: Vital Signs Pulse 77 01/09/23 11:23 Respiratory Rate 18 01/09/23 11:23 Blood Pressure 113/68 01/09/23 11:23 Pulse Oximetry 97 01/09/23 11:23 Pulse 77 01/09/23 11:23 Respiratory Rate 18 01/09/23 11:23 Respiratory Effort Normal 01/09/23 11:26 Blood Pressure 113/68 01/09/23 11:23 Blood Pressure Position Sitting 01/09/23 11:23 Pulse Oximetry 97 01/09/23 11:23 Oxygen Delivery Method Room Air 01/09/23 11:23 Oxygen Flow Rate 0 01/09/23 11:23 Pain Level 2 01/09/23 11:28 Procedures Laceration Laceration 1: Site: lower extremity Side (If applicable): left Size (cm): 3 Description: linear, flap, irregular and contaminated (minimal) Depth: simple, single layer Local Anesthetic: Lidocaine 1% and with Epi Amount of anesthesia used (mL): 8 Pre-repair: wound explored, irrigated extensively and deep structures intact Skin layer closed with: nylon Size (cm): 3-0 Number of sutures: 5 Technique: simple, interrupted (2) and horizontal mattress (3)
--- NOTE | 2023-01-09 11:46 | DI.RAD_ITS ---
Exam(s) XR TIB/FIB LT EXAM: XR TIB/FIB LT CLINICAL HISTORY: hit in L mid anterior leg, r/o fx/fb. TECHNIQUE: 2D digital imaging was performed. COMPARISON: CR XR knee LT 2V AP,lat from 04/25/2019 FINDINGS: 3 views No evidence of acute fracture nor dislocation. No new radiopaque foreign body. There is a thin curv ilinear metallic wire like foreign body in the deep subcutaneous tissue over the posterior medial asp ect of the leg which is unchanged from April 2019 images. There is no abnormal density in the adjac ent soft tissues in this region. IMPRESSION: No acute findings. Wire like soft tissue foreign body in the proximal calf as described above, unchanged from images of the left knee performed 04/25/2019. DATA REPOSITORY: RADIATION DOSE DELIVERED:
--- NOTE | 2023-01-09 12:18 | DI.VRAD_ITS ---
PROCEDURE INFORMATION: Exam: XR Left Tibia and Fibula Exam date and time: 01/09/2023 12:01 PM Age: 62 years old Clinical indication: Other: Hit in L mid anterior leg by chainsaw, laceration, R/O fb/fx TECHNIQUE: Imaging protocol: Radiologic exam of the left tibia and fibula. Views: 2 views. COMPARISON: CR XR knee LT 2V AP,lat 04/25/2019 10:09 AM FINDINGS: Bones/joints: No acute fracture or malalignment. Soft tissues: Unchanged 2 cm curvilinear metallic density in the medial lower leg. IMPRESSION: No acute fracture or malalignment. Dictated and Authenticated by: Rodriguez Stacy MD. Ordering:REGULO Valdez MD
[2023-01-09] MEDS: Lidocaine 1% Multi-Dose W/EPI 1/100,000 50 ML VIAL (12:33)
[2023-01-09] MEDS: Cephalexin 500 MG CAP PO (13:10)
== END 2023-01-09 13:19 | disposition home or self-care (01) ==
PROVIDERS: Emergency Provider Physician Assistant; PCP Family Medicine
DX: S81.812A Laceration without foreign body, left lower leg, initial encounter (principal); W29.3XXA Contact with powered garden and outdoor hand tools and machinery, initial encounter; Y93.H9 Activity, other involving exterior property and land maintenance, building and construction
CPT/HCPCS: 12002; 99284; 73590

== ENCOUNTER 2023-04-21 17:16 | Outpatient (REF) | payer MEDICAID, SELFPAY ==
[2023-04-21 21:17] LABS: HCT 46.2 % (40.0-50.0); HGB 15.9 g/dL (13.5-17.5); MCH 31.6 pg (27.0-33.0); MCHC 34.4 % (32.0-36.0); MCV 92 fL (80-95); MPV 9.4 fL (8.0-11.0); Platelet Count 297 10^3/uL (130-400); RBC 5.03 10^6/uL (4.36-5.78); RDW 12.4 % (11.8-14.1); RDW-SD 41.7 fL; WBC 6.79 10^3/uL (4.4-10.8)
[2023-04-21 21:41] LABS: ALT 52 U/L (16-63); AST 27 U/L (15-37); Albumin 3.9 g/dL (3.4-5.0); Alkaline Phosphatase 95 U/L (46-116); Anion Gap 10.3 mmol/L (3-11); BUN 19 mg/dL (7-18); Bilirubin, Total 0.4 mg/dL (0.2-1.0); CO2 27.7 mmol/L (21.0-32.0); Calcium 9.2 mg/dL (8.5-10.1); Calculated LDL 104 mg/dL (<100); Chloride 108 mmol/L (98-107); Cholesterol 179 mg/dL (<200); Glucose 88 mg/dL (74-106); HDL Cholesterol 39 mg/dL (40-60); Potassium 4.7 mmol/L (3.5-5.1); Sodium 146 mmol/L (136-145); Total Protein 7.4 g/dL (6.4-8.2); Triglyceride 181 mg/dL (<150)
[2023-04-21 22:52] LABS: Vitamin D 25 Total 17.2 ng/mL (30-100)
[2023-04-22 18:56] LABS: PSA, Screening 3.6 ng/mL (<=4.5)
== END 2023-04-21 17:17 | disposition home or self-care (01) ==
LOC: NCHCN 17:16
PROVIDERS: PCP Family Medicine; Visit Provider Family Medicine
DX: R33.9 Retention of urine, unspecified (principal)
CPT/HCPCS: 80053; 80061; 82306; 84153; 85027

== ENCOUNTER 2023-10-24 13:42 | Inpatient (IN) | payer MEDICAID, SELFPAY ==
[2023-10-24] VITALS (33 sets, daily range): BP systolic 119–138; BP diastolic 74–88; PULSE 63–98; RESP 16–22; TEMP 36.6–38; O2SAT 88–98
[2023-10-24 14:30] LABS: Abs Immature Grans 0.01 10^3/uL (0.0-0.06); Absolute Basophil Count 0.04 10^3/uL (0.0-0.2); Absolute Eosinophil Count 0.07 10^3/uL (0.0-0.7); Absolute Lymphocyte Count 1.45 10^3/uL (1.2-3.4); Absolute Monocyte Count 0.65 10^3/uL (0.1-0.8); Basophils % 0.6; HCT 46.6 % (40.0-50.0); HGB 16.4 g/dL (13.5-17.5); Immature Grans % 0.1; Lymphocytes % 21.3; MCH 31.5 pg (27.0-33.0); MCHC 35.2 % (32.0-36.0); MCV 90 fL (80-95); MPV 9.1 fL (8.0-11.0); Monocytes % 9.5; Neutrophils % 67.5; Platelet Count 283 10^3/uL (130-400); RDW 12.5 % (11.8-14.1); RDW-SD 41.4 fL; WBC 6.82 10^3/uL (4.4-10.8)
[2023-10-24] MEDS: Normal Saline 1,000 ML 1000 ML IV (14:32)
[2023-10-24] MEDS: Ondansetron 4 MG/2 ML VIAL IVP ×2 (14:33→19:10)
[2023-10-24 14:45] LABS: ALT 20 U/L (16-63); AST 12 U/L (15-37); Albumin 3.6 g/dL (3.4-5.0); Alkaline Phosphatase 78 U/L (46-116); Anion Gap 11.3 mmol/L (3-11); BUN 20 mg/dL (7-18); Bilirubin, Total 0.9 mg/dL (0.2-1.0); CO2 26.7 mmol/L (21.0-32.0); CREATININE 1.2 mg/dL (0.70-1.30); Calcium 9.2 mg/dL (8.5-10.1); Chloride 99 mmol/L (98-107); Estimated GFR 68.38 (mL/min/1.73m2); Glucose 138 mg/dL (74-106); Lipase 22 U/L (16-77); Magnesium 1.9 mg/dL (1.8-2.4); Sodium 137 mmol/L (136-145); Total Protein 7.8 g/dL (6.4-8.2)
[2023-10-24] MEDS: Pantoprazole 40 MG VIAL IVP (15:23)
--- NOTE | 2023-10-24 16:03 | DI.CT_ITS ---
Exam(s) CT ABDOMEN PELVIS W EXAM: CT ABDOMEN PELVIS W CLINICAL HISTORY: abdominal pain TECHNIQUE: Imaging Protocol: Axial computed tomography images with coronal and sagittal reformatted images were created and reviewed. CONTRAST MATERIAL: Intravenous: Omnipaque 350 Contrast volume:100 mL Oral: No COMPARISON: CT CT CHEST PE CTA from 06/01/[address] CHEST PE ABD PELVIS W from 06/05/2021 FINDINGS: ABDOMEN: Lung Bases: There is a small hiatal hernia. There is dependent atelectasis in the lung bases. Liver: Normal density. There are stable hypodensities in the posterior segment of the right lobe of t he liver. Portal, Superior Mesenteric, and Splenic Veins: Unremarkable. Gallbladder and Biliary Tract: No radiodense calculus or dilation. Pancreas: There is some fatty infiltration of the head of the pancreas. No peripancreatic fluid michael ections are seen. Spleen: Normal. Adrenals: No masses seen. Kidneys: Normal size, contour and axis. No radiodense stones or obstructive uropathy. No masses seen. Abdominal Aorta: Abdominal portion non-dilated. Mild atherosclerosis. Bowel: There are dilated loops of small bowel present to the level of the right lower quadrant. The terminal ileum is of normal caliber. There is mild bowel wall thickening seen in loops of small ashley l in the left upper quadrant. The colon is of normal caliber. No evidence of appendicitis. Peritoneal Cavity: No ascites, collection or mesenteric inflammatory response. No free air. Lymph Nodes: Within normal limits. Bones: Within normal limits for the patient's age. Soft Tissues: Unremarkable. PELVIS: Bladder: Symmetric distention, no gross wall thickening. Reproductive Organs: There is an enlarged prostate gland. Lymph Nodes: Within normal limits. Bones: Within normal limits for the patient's age. IMPRESSION: 1. Findings of a small-bowel obstruction. The transition appears to lie in the right lower quadrant. There is a normal caliber terminal ileum. 2. Two hypodense lesions in the liver. The are visualized on the examination from 2020 and are indet erminate. As before, nonemergent MRI should be considered for further evaluation. RADIATION DOSE DELIVERED: 1,089.1mGy.cm Total DLP DATA REPOSITORY: All CT scans at this facility are submitted to the National Radiology Data Registry (NRDR) Dose Index Registry (DIR) with the [employer] (ACR). RADIATION OPTIMIZATION: All CT scans at this facility use at least one of these dose optimization te chniques: automated exposure control; mA and/or kV adjustment per patient size (includes targeted exa ms where dose is matched to clinical indication); or iterative reconstruction.
[2023-10-24] MEDS: Normal Saline - Diluent 50 ML VIAL IJ (16:36)
[2023-10-24] MEDS: Omnipaque 350 MG/ML 100 ML BTL IJ (16:37)
--- NOTE | 2023-10-24 17:05 | DI.VRAD_ITS ---
PROCEDURE INFORMATION: Exam: CT Abdomen And Pelvis With Contrast Exam date and time: 10/24/2023 4:32 PM Age: 63 years old Clinical indication: Nausea and other: Abdominal pain TECHNIQUE: Imaging protocol: Computed tomography of the abdomen and pelvis with contrast. Contrast material: 350; Contrast volume: 100 ml; Contrast route: INTRAVENOUS (IV); COMPARISON: CT CHEST PE ABD PELVIS W 06/05/2021 9:11 AM FINDINGS: Diaphragm: Small hiatal hernia. Liver: Indeterminate right lobe hepatic lesions. These are not definitely appreciated on previous exam. Gallbladder and bile ducts: Normal. No calcified stones. No ductal dilation. Pancreas: Normal. No ductal dilation. Spleen: Normal. No splenomegaly. Adrenal glands: Normal. No mass. Kidneys and ureters: Normal. No hydronephrosis. Stomach and bowel: There are multiple, fluid-filled distended small bowel loops with diameter exceeding 4.5 cm. There is a transition zone in the right lower quadrant at the approximate mid ileal level. Distal loops appear decompressed. There is no abnormal wall thickening. Ileocolic anastomosis noted. Appendix: No evidence of appendicitis. Intraperitoneal space: Trace free fluid. Vasculature: Unremarkable. No abdominal aortic aneurysm. Lymph nodes: Unremarkable. No enlarged lymph nodes. Urinary bladder: Unremarkable as visualized. Reproductive: Prostate enlarged, 5.8 cm. Bones/joints: Unremarkable. No acute fracture. Soft tissues: Unremarkable. IMPRESSION: Small bowel obstruction with transition zone at the approximate mid ileal level. I discussed case findings with VERONA SPARROW 10/24/2023 5:04 PM EST. Dictated and Authenticated by: Renay Gustafson MD. Ordering:[facility] Vishnu Loaiza MD
[2023-10-24] MEDS: Normal Saline 1,000 ML 125 ML IV (19:10)
[2023-10-24] MEDS: Normal Saline Flush 10 ML SYR IVP (19:11)
--- NOTE | 2023-10-24 20:21 | ED.GENADUL_ITS ---
HPI General Date/Time Provider Initiated Documentation: 10/24/23 13:46 . Limitations to Documentation: no limitations . Information obtained by: patient . HPI Narrative: 63-year-old gentleman with past medical history including COVID, perforated appendicitis with complications presents with vomiting. Patient reports that he has been vomiting for 2 days. He has not been able to keep anything down. He reports initially he had diarrhea, but now he is having soft stool. Reports that he did have a soft stool today. He states he is not passing gas. No fever. No known sick contacts he reports generalized abdominal pain. Worsened with vomiting. Not relieved by anything. Has not tried any antiemetics at home. Related Data Home Medications Medication Instructions Recorded Confirmed ibuprofen 200 mg capsule (Advil 800 mg PO DAILY 01/09/23 10/24/23 Liqui-Gel) clotrimazole-betamethasone 1 1 applic topical BID 08/05/23 10/24/23 %-0.05 % topical cream cyclobenzaprine 10 mg tablet 10 mg PO HS 08/05/23 10/24/23 omeprazole 40 mg capsule,delayed 40 mg PO QDAY 08/05/23 10/24/23 release tamsulosin 0.4 mg capsule (Flomax) 0.4 mg PO DAILY 08/05/23 10/24/23 Allergies Allergy/AdvReac Type Severity Reaction Status Date / Time naproxen sodium [From Aleve] Allergy Skin Rash Unverified 10/24/23 14:39 aspirin AdvReac GI Bleeding Unverified 10/24/23 14:39 General Stated Complaint: Nausea/Vomit/Diar JACK: 3 Exam Narrative Exam Narrative: Review of Systems: All systems reviewed & are unremarkable except as noted in HPI and below Well-developed, no acute distress NCAT PERRL, normal conjunctiva Dry mucous membranes RRR Unlabored respiratory effort, clear breath sounds bilaterally Nondistended abdomen, generalized tenderness, guarding, not rigid, multiple surgical scars noted Extremities w/o deformity, no cyanosis, no edema No rashes or lesions. no focal neurologic deficits Appropriate mood and affect Course Vital Signs Vital signs: Vital Signs Temperature 36.6 C 10/24/23 13:52 Pulse 85 10/24/23 13:52 Respiratory Rate 16 10/24/23 13:52 Blood Pressure 124/80 10/24/23 13:52 Pulse Oximetry 97 10/24/23 13:52 Temperature 38.0 C H 10/24/23 18:53 Temperature Source Temporal Artery Scan 10/24/23 13:52 Pulse 98 H 10/24/23 18:53 Pulse Rhythm Regular 10/24/23 18:53 Respiratory Rate 22 10/24/23 18:53 Respiratory Effort Short of Breath, Accessory Muscle Use 10/24/23 18:53 Respiratory Depth Shallow 10/24/23 18:53 Respiratory Pattern Tachypnea 10/24/23 18:53 Blood Pressure 133/78 10/24/23 18:53 Blood Pressure Mean 87 10/24/23 16:16 Blood Pressure Position Sitting 10/24/23 13:52 Pulse Oximetry 96 10/24/23 18:53 Oxygen Delivery Method Room Air 10/24/23 18:53 Oxygen Flow Rate 0 10/24/23 18:53 Pain Level 5 10/24/23 18:53 Lab/Test Results Lab/Test Results: Laboratory Tests Range/Units 10/24/23 14:20 WBC (4.4-10.8) 10^3/uL 6.82 RBC (4.36-5.78) 10^6/uL 5.20 Hgb (13.5-17.5) g/dL 16.4 Hct (40.0-50.0) % 46.6 MCV (80-95) fL 90 MCH (27.0-33.0) pg 31.5 MCHC (32.0-36.0) % 35.2 RDW (11.8-14.1) % 12.5 Plt Count (130-400) 10^3/uL 283 MPV (8.0-11.0) fL 9.1 Immature Gran % 0.1 Neutrophils % 67.5 Lymphocytes % 21.3 Monocytes % 9.5 Eosinophils % 1.0 Basophils % 0.6 Nucleated RBC % (0.0-0.3) % 0.0 Absolute Neutrophils (1.2-6.7) 10^3/uL 4.60 Absolute Lymphocytes (1.2-3.4) 10^3/uL 1.45 Absolute Monocytes (0.1-0.8) 10^3/uL 0.65 Absolute Eosinophils (0.0-0.7) 10^3/uL 0.07 Absolute Basophils (0.0-0.2) 10^3/uL 0.04 Sodium (136-145) mmol/L 137 Potassium (3.5-5.1) mmol/L 4.0 Chloride (98-107) mmol/L 99 Carbon Dioxide (21.0-32.0) mmol/L 26.7 Anion Gap (3-11) mmol/L 11.3 H BUN (7-18) mg/dL 20 H Creatinine (0.70-1.30) mg/dL 1.2 Est GFR (CKD-EPI 2020) (mL/min/1.73m2) 68.38 Glucose (74-106) mg/dL 138 H Calcium (8.5-10.1) mg/dL 9.2 Magnesium (1.8-2.4) mg/dL 1.9 Total Bilirubin (0.2-1.0) mg/dL 0.9 AST (15-37) U/L 12 L ALT (16-63) U/L 20 Alkaline Phosphatase (46-116) U/L 78 Total Protein (6.4-8.2) g/dL 7.8 Albumin (3.4-5.0) g/dL 3.6 Lipase (16-77) U/L 22 Medical Decision Making Emergent evaluation of vomiting and abdominal pain. Patient has significant risk factors for bowel obstruction given his recent surgical revision and anastomosis. He is having bowel movements, but not passing gas. His abdominal exam is concerning. Initial plan for lab work, fluid resuscitation and antiemetics. Lab work reviewed. He does not have a leukocytosis or significant anemia. His renal function is within normal limits. Patient reports improvement in his overall symptoms after medications. CT scan reviewed. He does have a bowel obstruction. He has significant dilation of the small bowel, greater than 4.5 cm with a mid ileal transition point. Discussed with Juanjose radiologist. I consulted general surgery for admission. An NG tube was placed in the emergency department and the patient was admitted to the surgical service for further management of a small bowel obstruction. Medical Records Medical records reviewed: Yes I reviewed the patient's medical records. Lab Data Lab results reviewed: Yes I reviewed the patient's lab results. Quality:[facility] Health Related Social Needs: No Data to Display Critical Care Time Critical Care Time Critical Care Time: Yes Total Critical Care Time: 35 Attestation: CRITICAL CARE Upon my evaluation, this patient had a high probability of imminent or life- threatening deterioration due to bowel obstruction which required my direct attention, intervention, and personal management. I have personally provided 35 minutes of critical care time exclusive of time spent on separately billable procedures. Time includes review of laboratory data, radiology results, discussion with consultants, and monitoring for potential decompensation. Interventions were performed as documented above [facility] All Active Problems (Updated 10/24/23 @ 20:29 by Colleen Mares MD) Vomiting (Acute) SBO (small bowel obstruction) (Acute) Myocarditis due to 2019 novel coronavirus (Acute) Acute appendicitis (Acute) Shortness of breath (Acute) COVID-19 (Acute) Chest pain (Acute) Elevated troponin (Acute) Medical History Insomnia GERD (gastroesophageal reflux disease) Surgical History EGD - MAC (11/23/16) Colonoscopy - MAC (11/23/16) Social History Smoking/Tobacco Use Status: Never Smoking risk assessment performed?: Yes Alcohol Intake: current Alcohol Intake frequency: holidays/special occasions only Drug use: Never Substance use type: does not use Housing: other Do you feel safe at home: Yes Do you feel safe in your relationship?: Yes Discharge Plan Disposition Patient Disposition: Admit to [facility] Condition: Fair Discharge Details Chief Complaint: Nausea/Vomit/Diar Clinical Impression: SBO (small bowel obstruction), Vomiting Admit Date/Time: 10/24/23 17:08 Admit Provider: Praveena Villafuerte Attending Provider: Praveena Villafuerte Primary Care Provider: Surinder Chen ED Provider: Colleen Mares Discharge Data Discharge Date/Time-TO BE ENTERED AT DEPARTURE: 10/24/23 18:51
[2023-10-24] MEDS: Enoxaparin 40 MG/0.4 ML SYR SC (20:34)
[2023-10-24] MEDS: POTASSIUM CHLORIDE/D5-0.45NACL 1,000 ML 120 MEQ IV (21:00)
[2023-10-25] MEDS: Chloraseptic Spray 117 ML BTL MM ×2 (01:04→06:07)
[2023-10-25 02:30] VITALS: BP 133/78; PULSE 98; RESP 22; TEMP 38; O2SAT 96
[2023-10-25] MEDS: POTASSIUM CHLORIDE/D5-0.45NACL 1,000 ML 120 MEQ IV ×3 (06:41→21:33)
[2023-10-25 07:08] LABS: Abs Immature Grans 0.02 10^3/uL (0.0-0.06); Absolute Basophil Count 0.05 10^3/uL (0.0-0.2); Absolute Eosinophil Count 0.18 10^3/uL (0.0-0.7); Absolute Lymphocyte Count 1.16 10^3/uL (1.2-3.4); Absolute Monocyte Count 0.77 10^3/uL (0.1-0.8); Absolute Neutrophil Count 3.27 10^3/uL (1.2-6.7); Basophils % 0.9; Eosinophils % 3.3; HCT 42.3 % (40.0-50.0); HGB 14.8 g/dL (13.5-17.5); Immature Grans % 0.4; Lymphocytes % 21.3; MCH 31.6 pg (27.0-33.0); MCV 90 fL (80-95); MPV 9.2 fL (8.0-11.0); Monocytes % 14.1; Platelet Count 234 10^3/uL (130-400); RBC 4.69 10^6/uL (4.36-5.78); RDW 12.7 % (11.8-14.1); RDW-SD 41.9 fL; WBC 5.45 10^3/uL (4.4-10.8)
[2023-10-25 07:23] LABS: Anion Gap 8.1 mmol/L (3-11); BUN 13 mg/dL (7-18); CO2 25.9 mmol/L (21.0-32.0); Calcium 8.1 mg/dL (8.5-10.1); Chloride 104 mmol/L (98-107); Glucose 132 mg/dL (74-106); Magnesium 1.9 mg/dL (1.8-2.4); Potassium 3.9 mmol/L (3.5-5.1); Sodium 138 mmol/L (136-145)
[2023-10-25 09:08] VITALS: BP 129/83; PULSE 71; RESP 18; TEMP 37.4; O2SAT 92
--- NOTE | 2023-10-25 09:08 | W.PM.HP.N ---
Date of service: 10/25/23 Time of Service: 09:08 Assessment and Plan Assessment and plan (1) SBO (small bowel obstruction): Status: Acute Assessment and plan: Most likely from adhesions from previous ruptured appendix. NG tube decompression IV Protonix Hydration Pain management DVT prophylaxis Okay to clamp tube while walking/ encourage walking/ (2) H/O exploratory laparotomy: Status: Acute (3) Myocarditis due to 2019 novel coronavirus: Status: Acute (4) GERD (gastroesophageal reflux disease): History of Present Illness Narrative: Patient had an open appendectomy 3 years ago with the vertical midline incision. Patient had the procedure at a remote institution. It was ruptured when he had the appendectomy. Today patient says he is feeling better. He is having less pain. He is passing gas. He had about 1000 cc out from the NG tube overnight. He has not had a bowel movement since he has been up to the floor. from ED; Patient reports that he has been vomiting for 2 days. He has not been able to keep anything down. He reports initially he had diarrhea, but now he is having soft stool. Reports that he did have a soft stool today. He states he is not passing gas. No fever. No known sick contacts he reports generalized abdominal pain. Worsened with vomiting. Not relieved by anything. Has not tried any antiemetics at home. Review of Systems All systems reviewed & are unremarkable except as noted in HPI and below PFSH All Active Problems (Updated 10/25/23 @ 12:36 by Praveena Villafuerte DO) H/O exploratory laparotomy (Acute) Ruptured appendix during COVID 2019 SBO (small bowel obstruction) (Acute) Myocarditis due to 2019 novel coronavirus (Acute) Acute appendicitis (Acute) Shortness of breath (Acute) Chest pain (Acute) Elevated troponin (Acute) Medical History (Updated 10/25/23 @ 12:36 by Praveena Villafuerte DO) COVID-19 Vomiting Insomnia GERD (gastroesophageal reflux disease) Surgical History (Updated 10/25/23 @ 12:36 by Praveena Villafuerte DO) EGD - MAC (11/23/16) Colonoscopy - MAC (11/23/16) Social History Smoking/Tobacco Use Status: Never Smoking risk assessment performed?: Yes Alcohol Intake: current Alcohol Intake frequency: holidays/special occasions only Drug use: Never Substance use type: does not use Housing: other Do you feel safe at home: Yes Do you feel safe in your relationship?: Yes Meds Allergies and Home Medications Allergies Allergy/AdvReac Type Severity Reaction Status Date / Time naproxen sodium [From Aleve] Allergy Skin Rash Unverified 10/24/23 14:39 aspirin AdvReac GI Bleeding Unverified 10/24/23 14:39 Home Medications Medication Instructions Recorded Confirmed Type ibuprofen 200 mg capsule (Advil 800 mg PO DAILY 01/09/23 10/24/23 History Liqui-Gel) clotrimazole-betamethasone 1 1 applic topical BID 08/05/23 10/24/23 History %-0.05 % topical cream cyclobenzaprine 10 mg tablet 10 mg PO HS 08/05/23 10/24/23 History omeprazole 40 mg capsule,delayed 40 mg PO QDAY 08/05/23 10/24/23 History release tamsulosin 0.4 mg capsule (Flomax) 0.4 mg PO DAILY 08/05/23 10/24/23 History Exam Const Other: PHYSICAL EXAM GENERAL APPEARANCE: Alert, healthy appearance, oriented, x 3,? in no acute distress HYDRATION: Well hydrated HEAD, EYES, EARS, NECK, THROAT: Head is normocephalic, pupils equal, round, reactive to light and accommodation, ocular movement intact, sclera clear and no jaundice. ?Dentition -poor LUNGS: normal respiration/normal chest excursion. ?Clear to auscultation bilaterally. ?No wheeze. ?HEART: Regular rate and rhythm. no murmurs EXTREMITY: No edema or cyanosis.? no leg pain, redness, swelling.? ABDOMEN: Bowel sounds are hypoactive but present. There is no diffuse peritonitis. Postsurgical changes noted from previous midline laparotomy. There is no hernias. He is having minimal pain today. Results Labs 10/25/23 06:54 10/25/23 06:54 Labs: Laboratory Results - last 24 hr 10/24/23 10/25/23 14:20 06:54 WBC 6.82 5.45 RBC 5.20 4.69 Hgb 16.4 14.8 Hct 46.6 42.3 MCV 90 90 MCH 31.5 31.6 MCHC 35.2 35.0 RDW 12.5 12.7 Plt Count 283 234 MPV 9.1 9.2 Immature Gran % 0.1 0.4 Neutrophils % 67.5 60.0 Lymphocytes % 21.3 21.3 Monocytes % 9.5 14.1 Eosinophils % 1.0 3.3 Basophils % 0.6 0.9 Nucleated RBC % 0.0 0.0 Absolute Neutrophils 4.60 3.27 Absolute Lymphocytes 1.45 1.16 L Absolute Monocytes 0.65 0.77 Absolute Eosinophils 0.07 0.18 Absolute Basophils 0.04 0.05 Sodium 137 138 Potassium 4.0 3.9 Chloride 99 104 Carbon Dioxide 26.7 25.9 Anion Gap 11.3 H 8.1 BUN 20 H 13 Creatinine 1.2 1.0 Est GFR (CKD-EPI 2020) 68.38 85.10 Glucose 138 H 132 H Calcium 9.2 8.1 L Magnesium 1.9 1.9 Total Bilirubin 0.9 AST 12 L ALT 20 Alkaline Phosphatase 78 Total Protein 7.8 Albumin 3.6 Lipase 22 Last Vital Signs Temp 38.0 C H 10/25/23 02:30 Pulse 98 H 10/25/23 02:30 Resp 22 10/25/23 02:30 BP 133/78 10/25/23 02:30 Pulse Ox 96 10/25/23 02:30 Time Spent Time spent with Patient: 40-54 minutes Time was spent: preparing to see the patient(eg.review tests), obtaining and/or reviewing separately otained hiistory, ordering medications,tests, procedures, referring, communicating with other health resident care technician, indepentently interpreting results, counseling the patient and care coordination
[2023-10-25] MEDS: Tamsulosin 0.4 MG CAPCR PO (09:30)
--- NOTE | 2023-10-25 10:17 | INITIAL_ITS ---
Date of service: 10/25/23 Time of Service: 10:17 Care Management Initial Assmt Initial Assessment REASON FOR HOSPITALIZATION:: SBO PREVIOUS FUNCTIONAL STATUS/SOCIAL/FAMILY SUPPORTS:: Demetris lives alone in a 5th wheel camper on private property in [place], [place]. He has 7 children; 4 children live locally and the others are out of state. He describes his family as close and supportive. Demetris is not currently employed and intends to begin collecting his social security. He is independent at baseline and continues to drive. he receives food stamps and fuel assistance but no other community services. CURRENT FUNCTIONAL STATUS:: Demetris was sitting up in bed when CM met with him. He stated that he is feeling pretty good, better than when he arrived. He denied having nausea, vomiting or abdominal pain. Demetris is NPO but fortunately has not required an NG tube. He informed CM that he anticipates being hospitalized for for another day or two and does not feel he will need any services when he goes home. ADVANCE DIRECTIVES:: On file. Eve DIALLO Has patient been provided with info about the portal/API?: Yes Did the patient sign up for the portal?: Yes CODE STATUS:: Full Code INSURANCE COVERAGE / FINANCIAL ISSUES:: Medicaid X3 - Managed Medicare CURRENT HOME/COMMUNITY SERVICES/EQUIPMENT:: none PRIMARY CARE PHYSICIAN:: Surinder Chen POTENTIAL DISCHARGE NEEDS:: follow up with PCP and plan of care PATIENT/FAMILY EDUCATION NEEDS:: Review of discharge instructions, activity, limitations, follow up plan, discuss Ask Me Three TRANSPORTATION:: via private vehicle vs RCT PLAN:: Anticipate Demetris will be discharged home when medically ready. He will follow up with his community providers and plan of care and transport with family vs RCT. CM will follow and continue to assess for discharge needs. PFSH All Active Problems (Updated 10/25/23 @ 12:36 by Praveena Villafuerte DO) H/O exploratory laparotomy (Acute) Ruptured appendix during COVID 2020 SBO (small bowel obstruction) (Acute) Myocarditis due to 2019 novel coronavirus (Acute) Acute appendicitis (Acute) Shortness of breath (Acute) Chest pain (Acute) Elevated troponin (Acute) Medical History (Updated 10/25/23 @ 12:36 by Praveena Villafuerte DO) COVID-19 Vomiting Insomnia GERD (gastroesophageal reflux disease) Surgical History (Updated 10/25/23 @ 12:36 by Praveena Villafuerte DO) EGD - MAC (11/23/16) Colonoscopy - MAC (11/23/16) Social History Smoking/Tobacco Use Status: Never Smoking risk assessment performed?: Yes Alcohol Intake: current Alcohol Intake frequency: holidays/special occasions only Drug use: Never Substance use type: does not use Housing: other Do you feel safe at home: Yes Do you feel safe in your relationship?: Yes SDOH(Care Management) Screening Will the Patient Participate in the Screening?: Declined to provide
[2023-10-25] MEDS: Normal Saline Flush 10 ML SYR IVP ×2 (15:51→20:59)
[2023-10-25] MEDS: Pantoprazole 40 MG VIAL IVP (15:51)
[2023-10-25 15:52] VITALS: BP 111/71; PULSE 73; RESP 20; TEMP 36.7; O2SAT 96
[2023-10-25] MEDS: Enoxaparin 40 MG/0.4 ML SYR SC (20:58)
--- NOTE | 2023-10-25 21:05 | NUR.NOTE ---
Pt transfered to unit via w/c from icu. On room air. No c/o pain or discomfort at time of transfer. Pt is A&O x3 able to make needs known to staff. Call light in hand watching tv at this time. Nursing Note:
[2023-10-26 00:08] VITALS: BP 107/55; PULSE 66; RESP 18; TEMP 36.6; O2SAT 95
[2023-10-26 07:05] LABS: Anion Gap 6.8 mmol/L (3-11); BUN 9 mg/dL (7-18); CO2 27.2 mmol/L (21.0-32.0); CREATININE 0.9 mg/dL (0.70-1.30); Calcium 8.5 mg/dL (8.5-10.1); Chloride 106 mmol/L (98-107); Estimated GFR 96.57 (mL/min/1.73m2); Glucose 120 mg/dL (74-106); Magnesium 2.1 mg/dL (1.8-2.4); Potassium 4.4 mmol/L (3.5-5.1); Sodium 140 mmol/L (136-145)
[2023-10-26 07:23] VITALS: BP 112/74; PULSE 62; RESP 18; TEMP 36.2; O2SAT 95
[2023-10-26] MEDS: Tamsulosin 0.4 MG CAPCR PO (09:01)
[2023-10-26] MEDS: Normal Saline Flush 10 ML SYR IVP ×3 (09:01→19:59)
--- NOTE | 2023-10-26 09:17 | W.PM.PROGNOT ---
Date of Service Date of service: 10/26/23 Time of Service: 09:17 Assessment and Plan Assessment and plan (1) SBO (small bowel obstruction): Status: Acute Assessment and plan: (+) BM and flatus Denies abdominal pain at this time. Will trial clear liquid diet this morning and progress slowly. IV Protonix Hydration Pain management DVT prophylaxis Encouraged ambulation and activity OOB. (2) H/O exploratory laparotomy: Status: Acute (3) Myocarditis due to 2019 novel coronavirus: Status: Acute (4) GERD (gastroesophageal reflux disease): Subjective Subjective Interval history since last seen: Patient reports he is feeling much better. He is passing flatus and he states he had a small BM this morning. Exam Const General: cooperative, healthy appearing and comfortable Orientation: alert and oriented x3 Resp Effort & Inspection: normal respiratory effort, no audible wheezes and no cough GI Inspection: normal to inspection Palpation: soft, no guarding and nontender Objective Last Vital Signs Temp 36.2 C L 10/26/23 07:23 Pulse 62 10/26/23 07:23 Resp 18 10/26/23 07:23 BP 112/74 10/26/23 07:23 Pulse Ox 95 10/26/23 07:23 Laboratory Results - last 24 hr 10/26/23 06:10 Sodium 140 Potassium 4.4 Chloride 106 Carbon Dioxide 27.2 Anion Gap 6.8 BUN 9 Creatinine 0.9 Est GFR (CKD-EPI 2020) 96.57 Glucose 120 H Calcium 8.5 Magnesium 2.1 Time Spent with Patient Time Spent with Patient: <25 minutes Time was spent: preparing to see the patient(eg.review tests), obtaining and/or reviewing separately otained hiistory and counseling the patient
[2023-10-26] MEDS: POTASSIUM CHLORIDE/D5-0.45NACL 1,000 ML 120 MEQ IV ×2 (11:15→20:00)
[2023-10-26 11:35] VITALS: BP 118/72; PULSE 58; RESP 18; TEMP 36.5; O2SAT 96
[2023-10-26 15:21] VITALS: BP 108/65; PULSE 55; RESP 18; TEMP 36.9; O2SAT 93
[2023-10-26] MEDS: Pantoprazole 40 MG VIAL IVP (16:40)
[2023-10-26 19:51] VITALS: BP 107/66; PULSE 60; RESP 16; TEMP 37.1; O2SAT 95
[2023-10-26] MEDS: Enoxaparin 40 MG/0.4 ML SYR SC (19:59)
[2023-10-27] MEDS: POTASSIUM CHLORIDE/D5-0.45NACL 1,000 ML 120 MEQ IV ×2 (04:37→13:09)
[2023-10-27 07:40] LABS: Anion Gap 8.1 mmol/L (3-11); BUN 7 mg/dL (7-18); CO2 25.9 mmol/L (21.0-32.0); CREATININE 0.9 mg/dL (0.70-1.30); Calcium 8.9 mg/dL (8.5-10.1); Chloride 106 mmol/L (98-107); Estimated GFR 96.57 (mL/min/1.73m2); Glucose 116 mg/dL (74-106); Sodium 140 mmol/L (136-145)
[2023-10-27 07:44] VITALS: BP 113/71; PULSE 58; RESP 16; TEMP 36.1; O2SAT 94
--- NOTE | 2023-10-27 08:09 | W.PM.PROGNOT ---
Date of Service Date of service: 10/27/23 Time of Service: 08:09 Assessment and Plan Assessment and plan (1) SBO (small bowel obstruction): Status: Acute Assessment and plan: (+) BM and flatus Denies abdominal pain at this time. Advance to soft diet IV Protonix Hydration Pain management DVT prophylaxis Encouraged ambulation and activity OOB. Possible d/c later today, once tolerating a soft diet. (2) H/O exploratory laparotomy: Status: Acute (3) Myocarditis due to 2019 novel coronavirus: Status: Acute (4) GERD (gastroesophageal reflux disease): Subjective Subjective Interval history since last seen: Patient reports he continues to feel much better. (+) BMs yesterday. He states he is passing flatus and denies having any abdominal pain. Exam Const General: cooperative, healthy appearing and comfortable Orientation: alert and oriented x3 Resp Effort & Inspection: normal respiratory effort, no audible wheezes and no cough GI Inspection: normal to inspection Palpation: soft, no guarding and nontender Auscultation: normal bowel sounds Objective Last Vital Signs Temp 36.1 C L 10/27/23 07:44 Pulse 58 L 10/27/23 07:44 Resp 16 10/27/23 07:44 BP 113/71 10/27/23 07:44 Pulse Ox 94 10/27/23 07:44 Laboratory Results - last 24 hr 10/27/23 06:45 Sodium 140 Potassium 4.0 Chloride 106 Carbon Dioxide 25.9 Anion Gap 8.1 BUN 7 Creatinine 0.9 Est GFR (CKD-EPI 2020) 96.57 Glucose 116 H Calcium 8.9 Magnesium 2.0 Time Spent with Patient Time Spent with Patient: <25 minutes Time was spent: preparing to see the patient(eg.review tests), obtaining and/or reviewing separately otained hiistory and counseling the patient
[2023-10-27] MEDS: Tamsulosin 0.4 MG CAPCR PO (08:28)
--- NOTE | 2023-10-27 09:59 | PDOC.CMPRO ---
Date of service: 10/27/23 Time of Service: 10:00 Care Management Progress Note Progress Note Text Progress Note Text: S/O: A: Demetris is a 63 year old man admitted on 10/24/23 with a small bowel obstruction P:Anticipate Demetris will be discharged home when medically ready. He will follow up with his community providers and plan of care and transport with family vs RCT. CM will follow and continue to assess for discharge needs. SDOH(Care Management) Screening Will the Patient Participate in the Screening?: Declined to provide
--- NOTE | 2023-10-27 13:21 | DSE_ITS ---
Date of service: 10/27/23 Time of Service: 13:32 DS: Diagnosis Discharge Diagnosis (1) SBO (small bowel obstruction): Status: Acute (2) H/O exploratory laparotomy: Status: Acute (3) Myocarditis due to 2019 novel coronavirus: Status: Acute (4) GERD (gastroesophageal reflux disease): Discharge Plan Disposition Patient Disposition: Home Condition: Good Discharge Details Reason For Visit: SBO Admit Date/Time: 10/24/23 17:08 Admit Provider: Praveena Villafuerte Attending Provider: Praveena Villafuerte Primary Care Provider: Surinder Chen [facility] Hospital Course: 63 y/o male whom was admitted for NG tube decompression of a SBO. Over the course of two days Mr. Ramsey bowel function returned, his abdominal discomfort resovled and he was having BMs and passing flatus. He was slowly progressed to a soft diet, which he was able to tolerate well without any nausea or vomiting. D/C home Follow up with PCP in 2 weeks. Home Meds and New Rx's Prescriptions: Continued cyclobenzaprine 10 mg tablet 10 mg PO HS tamsulosin [Flomax] 0.4 mg capsule 0.4 mg PO DAILY clotrimazole-betamethasone 1-0.05 % cream 1 applic topical BID omeprazole 40 mg capsule,delayed release(DR/EC) 40 mg PO QDAY ibuprofen [Advil Liqui-Gel] 200 mg Capsule 800 mg PO DAILY Discharge Instructions Instructions: Bowel Obstruction (DC) Activity:: Activity as Tolerated Equipment/Supplies:: No Equipment Needed Diet:: Soft Diet Discharge Orders Discharge Orders: Discharge Order (Routine); Ordered 10/27/23 Ordered By: Kylee Quijano DS: Summary Time Spent with Patient providing and/or coordinating discharge services: Less than 30 minutes Status at Discharge Functional status at discharge: independent ambulation Overall status at discharge: patient is back to baseline Mental Status: mental status grossly normal Speech and Movement: speech and movement normal Mood: congruent mood Affect: normal affect Quality:SDOH Health Related Social Needs: No Data to Display Exam Const General: cooperative, healthy appearing and comfortable Orientation: alert and oriented x3 Resp Effort & Inspection: normal respiratory effort, no audible wheezes and no cough GI Inspection: normal to inspection Palpation: soft, no guarding and nontender Auscultation: normal bowel sounds Psych Mental Status: mental status grossly normal Speech and Movement: speech and movement normal Mood: congruent mood Affect: normal affect DS: Data Vitals/I&O Vitals and I&O: Vital Signs Temperature 36.1 C L 10/27/23 07:44 Temperature Source Tympanic 10/27/23 07:44 Pulse 58 L 10/27/23 07:44 Pulse Rhythm Regular 10/27/23 08:54 Respiratory Rate 16 10/27/23 07:44 Respiratory Effort Normal, Non-Labored 10/27/23 08:54 Respiratory Depth Normal 10/27/23 08:54 Respiratory Pattern Normal 10/27/23 08:54 Blood Pressure 113/71 10/27/23 07:44 Blood Pressure Mean 87 10/24/23 16:16 Blood Pressure Position Sitting 10/24/23 13:52 Pulse Oximetry 94 10/27/23 07:44 Oxygen Delivery Method Room Air 10/27/23 07:44 Oxygen Flow Rate 0 10/27/23 07:44 Pain Level 0 10/27/23 07:44 Intake & Output 10/26/23 10/27/23 10/27/23 18:59 06:59 18:59 Intake Total 1238 / 3238 2000 / 3238 2490 / 2490 Output Total 770 / 2195 1425 / 2195 1775 / 1775 Balance 468 / 1043 575 / 1043 715 / 715 Intake: IV 1000 / 3000 2000 / 3000 1000 / 1000 Oral 238 / 238 1490 / 1490 Output: Urine 770 / 2195 1425 / 2195 1775 / 1775 Other: Urine Color Yellow Yellow Yellow Urine Appearance Clear Clear Clear Urine Odor Normal Normal Stool Size Small Moderate Stool Characteristics Formed Formed Brown Voiding Methods Bedpan Urinal Urinal Data Completed and Pending Labs on day of discharge: Labs from last 24 hours 10/27/23 06:45 Sodium 140 Potassium 4.0 Chloride 106 Carbon Dioxide 25.9 Anion Gap 8.1 BUN 7 Creatinine 0.9 Est GFR (CKD-EPI 2020) 96.57 Glucose 116 H Calcium 8.9 Magnesium 2.0 PFSH All Active Problems (Updated 10/25/23 @ 12:36 by Praveena Villafuerte DO) H/O exploratory laparotomy (Acute) Ruptured appendix during COVID 2019 SBO (small bowel obstruction) (Acute) Myocarditis due to 2019 novel coronavirus (Acute) Acute appendicitis (Acute) Shortness of breath (Acute) Chest pain (Acute) Elevated troponin (Acute) Medical History (Updated 10/25/23 @ 12:36 by Praveena Villafuerte DO) COVID-19 Vomiting Insomnia GERD (gastroesophageal reflux disease) Surgical History (Updated 10/25/23 @ 12:36 by Praveena Villafuerte DO) EGD - MAC (11/23/16) Colonoscopy - MAC (11/23/16) Social History Smoking/Tobacco Use Status: Never Smoking risk assessment performed?: Yes Alcohol Intake: current Alcohol Intake frequency: holidays/special occasions o nly Drug use: Never Substance use type: does not use Housing: other Do you feel safe at home: Yes Do you feel safe in your relationship?: Yes Time Spent with Patient Time Spent with Patient: <45 minutes Time was spent: preparing to see the patient(eg.review tests), obtaining and/or reviewing separately otained hiistory and counseling the patient
[2023-10-27 14:56] VITALS: BP 111/70; PULSE 50; RESP 17; TEMP 36.4; O2SAT 96
--- NOTE | 2023-10-27 15:32 | CMDISCH_ITS ---
Date of service: 10/27/23 Time of Service: 15:33 LACE Index Scoring Tool Questions: Length of Stay (in days): 3 Was the patient admitted via the E.D.?: Yes E.D. Visits: 1 Answers: Total Score: 7 Risk of Readmission: Low Risk Care Management Discharge Plan Reason for Hospitalization: SBO Discharge Plan: Demetris will be discharged home with no new services. He will follow up with his surgeon and plan of care and transport with his son. Patient/Family Education Needs: Review of discharge instructions, activity, diet, limitations, follow up plan, discuss Ask Me Three [facility] Health Related Social Needs: No Data to Display
[2023-10-27] MEDS: Normal Saline Flush 10 ML SYR IVP (16:55)
[2023-10-27] MEDS: Pantoprazole 40 MG VIAL IVP (16:55)
== END 2023-10-27 18:18 | disposition home or self-care (01) | DRG 390 ==
LOC: ER 17:31 → MS 18:51
PROVIDERS: Admitting Provider Surgery; Emergency Provider Emergency Medicine; PCP Family Medicine; Visit Provider Surgery
DX: K56.50 Intestinal adhesions [bands], unspecified as to partial versus complete obstruction (principal); K21.9 Gastro-esophageal reflux disease without esophagitis; Z86.16 Personal history of COVID-19
CPT/HCPCS: 36415; 80048; 80053; 83690; 96361; 96374; 96375; 99291; J1650; 74177; 83735; 85025; J2405; J2470; J3490

== ENCOUNTER 2024-04-24 15:14 | Outpatient (CLI) | payer MEDICAID, SELFPAY ==
[2024-04-24 18:31] LABS: PSA, Screening 4.2 ng/mL (<=4.5)
== END 2024-04-24 15:15 | disposition home or self-care (01) ==
LOC: LBO 05-03 15:14
PROVIDERS: PCP Family Medicine; Visit Provider Nurse Practitioner Gerontology
DX: R39.9 Unspecified symptoms and signs involving the genitourinary system (principal); N40.1 Benign prostatic hyperplasia with lower urinary tract symptoms; N13.8 Other obstructive and reflux uropathy
CPT/HCPCS: 36415; 84153

== ENCOUNTER 2024-05-10 10:41 | Outpatient (REF) | payer MEDICAID, SELFPAY ==
[2024-05-10 15:06] LABS: Hemoglobin A1C 5.8 % (<5.7)
[2024-05-10 15:19] LABS: ALT 39 U/L (16-63); AST 22 U/L (15-37); Alkaline Phosphatase 84 U/L (46-116); Anion Gap 11.8 mmol/L (3-11); BUN 15 mg/dL (7-18); Bilirubin, Total 0.42 mg/dL (0.2-1.0); CO2 25.2 mmol/L (21.0-32.0); CREATININE 0.9 mg/dL (0.70-1.30); Calcium 9.2 mg/dL (8.5-10.1); Calculated LDL 92 mg/dL (<100); Chloride 106 mmol/L (98-107); Cholesterol 162 mg/dL (<200); Estimated GFR 95.97 (mL/min/1.73m2); Glucose 70 mg/dL (74-106); HDL Cholesterol 50 mg/dL (40-60); Potassium 4.5 mmol/L (3.5-5.1); Sodium 143 mmol/L (136-145); Total Protein 7.4 g/dL (6.4-8.2); Triglyceride 104 mg/dL (<150)
[2024-05-11 10:21] LABS: HIV-1/2 Ag & Ab Screen Negative (Negative)
[2024-05-11 10:32] LABS: Hepatitis C Ab w Rflx HCV PCR Negative (Negative)
== END 2024-05-10 10:42 | disposition home or self-care (01) ==
LOC: NCHCN 10:41
PROVIDERS: PCP Family Medicine; Visit Provider Family Medicine
DX: E66.9 Obesity, unspecified (principal); K76.9 Liver disease, unspecified; R73.03 Prediabetes
CPT/HCPCS: 80053; 80061; 86803; 87389; 83036

== ENCOUNTER 2024-07-11 02:27 | Outpatient (CLI) | payer MEDICAID, SELFPAY ==
[2024-07-11 19:11] LABS: PSA, Diagnostic 3.9 ng/mL (<=4.5)
== END 2024-07-11 02:28 | disposition home or self-care (01) ==
LOC: LBO 02:27
PROVIDERS: PCP Family Medicine; Visit Provider Nurse Practitioner Gerontology
DX: Z80.42 Family history of malignant neoplasm of prostate (principal); N40.1 Benign prostatic hyperplasia with lower urinary tract symptoms; N13.8 Other obstructive and reflux uropathy; R97.20 Elevated prostate specific antigen [PSA]
CPT/HCPCS: 36415; 84153

== ENCOUNTER 2025-01-17 03:27 | Outpatient (CLI) | payer MEDICAID, SELFPAY ==
[2025-01-17 21:26] LABS: PSA, Screening 3.6 ng/mL (<=4.5)
== END 2025-01-17 03:28 | disposition home or self-care (01) ==
LOC: LBO 03:27
PROVIDERS: PCP Family Medicine; Visit Provider Nurse Practitioner Gerontology
DX: R39.9 Unspecified symptoms and signs involving the genitourinary system (principal); R97.20 Elevated prostate specific antigen [PSA]; Z80.42 Family history of malignant neoplasm of prostate; N40.1 Benign prostatic hyperplasia with lower urinary tract symptoms; N13.8 Other obstructive and reflux uropathy
CPT/HCPCS: 36415; 84153

== ENCOUNTER 2025-01-28 06:25 | Inpatient (IN) | payer MEDICAID, SELFPAY ==
[2025-01-28] VITALS (26 sets, daily range): BP systolic 102–159; BP diastolic 70–115; PULSE 72–95; RESP 12–24; TEMP 36.5–37.5; O2SAT 86–96
--- NOTE | 2025-01-28 06:30 | DI.CT_ITS ---
Exam(s) CT ABDOMEN PELVIS W EXAM: CT ABDOMEN PELVIS W CLINICAL HISTORY: gen abd pain, vomiting, hx of colectomy/appe. TECHNIQUE: Imaging Protocol: Axial computed tomography images with coronal and sagittal reformatted images were created and reviewed CONTRAST MATERIAL: Intravenous: Omnipaque 350 Contrast volume:75 ml Oral: no COMPARISON: CT CT CHEST PE CTA from 06/01/[address] ABDOMEN PELVIS W from 10/24/2023 FINDINGS: ABDOMEN and PELVIS: Lung Bases: No acute findings. Liver: Normal density. Low-density lesion laterally in the right lobe of the liver near the diaphragm . The this appears unchanged from 2020, consistent with a benign lesion. No follow-up recommended. Gallbladder and biliary tract: No radiodense calculus. No wall thickening or pericholecystic fluid. No biliary dilation. Pancreas: Atrophy of the head no abnormal calcifications or inflammatory process. No evidence of mas s. Spleen: Normal. Kidneys: Normal size, contour and axis. No radiodense stones. No obstructive uropathy. No suspicious masses seen. Adrenal glands: No masses seen. Vasculature: Abdominal aorta non-dilated. Soft tissues: Small fatty containing right inguinal hernia. Bladder: No gross wall thickening. No calculi.No focal mass. Bowel: Small hiatal hernia. The stomach is mildly distended with fluid. Abnormally dilated loops of small bowel in the upper and mid abdomen with transition point near the level of the umbilicus. Rig ht lower quadrant ileocolic anastomosis. No bowel wall thickening or pneumatosis. Moderate quantity of stool. Peritoneal cavity: No ascites. No focal collection. No mesenteric inflammatory response. No free air . Bones: Unremarkable for age. Sacralization of L5 Reproductive organs: Enlarged prostate which mildly impresses on the base of the bladder. Lymph nodes: No pathologically enlarged lymph nodes. IMPRESSION:: Mildly dilated loops of small bowel with transition point in the midline near the level of the umbilicus consistent with partial or early small-bowel obstruction. The preliminary [facility] report was reviewed. RADIATION DOSE DELIVERED: Total DLP DATA REPOSITORY: All CT scans at this facility are submitted to the National Radiology Data Registry (NRDR) Dose Index Registry (DIR) with the [employer] (ACR). RADIATION OPTIMIZATION: All CT scans at this facility use at least one of these dose optimization te chniques: automated exposure control; mA and/or kV adjustment per patient size (includes targeted exa ms where dose is matched to clinical indication); or iterative reconstruction.
--- NOTE | 2025-01-28 06:42 | W.ED.GENAD ---
Discharge Plan Discharge Details Chief Complaint: Abd Prob Clinical Impression: Nausea & vomiting, Abdominal pain Primary Care Provider: Surinder Chen ED Provider: Ajay Donis Home Meds and New Rx's Prescriptions: No Action tamsulosin [Flomax] 0.4 mg capsule 0.4 mg PO DAILY Qty: 90 3RF tadalafil [Cialis] 5 mg tablet 5 mg PO DAILY Qty: 90 1RF Rx Instructions: For BPH with LUTS cyclobenzaprine 10 mg tablet 10 mg PO HS clotrimazole-betamethasone 1-0.05 % cream 1 applic topical BID omeprazole 40 mg capsule,delayed release(DR/EC) 40 mg PO QDAY ibuprofen [Advil Liqui-Gel] 200 mg Capsule 800 mg PO DAILY HPI General Date/Time Provider Initiated Documentation: 01/28/25 06:31. HPI Narrative: This is a pleasant 64-year-old male with a past medical history of a ruptured appendicitis, partial colectomy secondary to this. He presents today for evaluation of abdominal pain. Patient states that at around 8 PM last night he started having sharp cramping generalized lower abdominal pain which transitioned into nausea and vomiting. Pain comes and goes in severity, it is now radiating to both flanks, as well as the anterior and epigastric abdomen. He denies any melena or hematochezia. He denies any alcohol use. No other complaints at this time. No other modifying factors. Related Data Home Medications ?Medication ?Instructions ?Recorded ?Confirmed ibuprofen 200 mg capsule (Advil 800 mg PO DAILY 01/09/23 01/28/25 Liqui-Gel) clotrimazole-betamethasone 1 1 applic topical BID 08/05/23 01/28/25 %-0.05 % topical cream cyclobenzaprine 10 mg tablet 10 mg PO HS 08/05/23 01/28/25 omeprazole 40 mg capsule,delayed 40 mg PO QDAY 08/05/23 01/28/25 release tamsulosin 0.4 mg capsule (Flomax) 0.4 mg PO DAILY #90 caps 10/18/24 01/28/25 tadalafil 5 mg tablet (Cialis) 5 mg PO DAILY #90 tabs 10/25/24 01/28/25 Previous Rx's ?Medication ?Instructions ?Recorded tamsulosin 0.4 mg capsule (Flomax) 0.4 mg PO DAILY #90 caps 10/18/24 tadalafil 5 mg tablet (Cialis) 5 mg PO DAILY #90 tabs 10/25/24 Allergies Allergy/AdvReac Type Severity Reaction Status Date / Time naproxen sodium (From Aleve) Allergy Skin Rash Unverified 01/28/25 06:36 tamsulosin AdvReac Mild Dizziness/L Verified 01/28/25 06:36 ighthead aspirin AdvReac GI Bleeding Unverified 01/28/25 06:36 General Stated Complaint: Abd Prob JACK: 3 Exam Narrative Exam Narrative: 1.Const: Well-nourished, Well-developed, appearing stated age 2.Eyes: PERRL, no conjunctival injection, and symmetrical lids. 3.ENT: Atraumatic external nose and ears. Dry MM. Neck: Symmetric, trachea midline, No thyromegaly. 4.CVS: +S1/S2, Peripheral pulses 2+ and equal in all extremities. Brisk capillary refill in all extremities. 5.RESP: Unlabored respiratory effort. Clear to auscultation bilaterally. No wheezes rales or rhonchi 6.GI: Slightly bloated, mildly tender throughout, worse in the right lower and mid abdominal regions. Bowel sounds present but reduced. 7.MSK: Normocephalic/Atraumatic, Extremities w/o deformity or ttp No cyanosis or clubbing, Normal movement of all extremities 8.Skin: Warm, Dry. No rashes or lesions. 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 Sensation grossly intact, no focal neurologic deficits. 10.Psych: (AAO) x3. Appropriate mood and affect Course Vital Signs Vital signs: Vital Signs Temperature 36.5 C 01/28/25 06:31 Pulse 94 H 01/28/25 06:31 Respiratory Rate 20 01/28/25 06:31 Blood Pressure 159/115 H 01/28/25 06:31 Pulse Oximetry 96 01/28/25 06:31 Temperature 36.5 C 01/28/25 06:34 Pulse 94 H 01/28/25 06:34 Respiratory Rate 20 01/28/25 06:34 Blood Pressure 159/115 H 01/28/25 06:34 Blood Pressure Position Sitting 01/28/25 06:34 Pulse Oximetry 96 01/28/25 06:34 Oxygen Delivery Method Room Air 01/28/25 06:34 Oxygen Flow Rate 0 01/28/25 06:34 Medical Decision Making This is a pleasant 64-year-old male with a past medical history of a ruptured appendicitis, partial colectomy secondary to this. He presents today for evaluation of abdominal pain. Patient states that at around 8 PM last night he started having sharp cramping generalized lower abdominal pain which transitioned into nausea and vomiting. Pain comes and goes in severity, it is now radiating to both flanks, as well as the anterior and epigastric abdomen. He denies any melena or hematochezia. He denies any alcohol use. No other complaints at this time. No other modifying factors. Exam demonstrates tenderness in the mid lower abdomen, dry mucous membranes. Differential includes obstruction, kidney stone, diverticulitis. Will get CT imaging, treat his pain with NSAID therapy, rehydrate, monitor closely and reassess. Patient will be signed out to my colleague for follow-up on labs and imaging. Quality:SDOH Health Related Social Needs: No Data to Display PFSH All Active Problems (Updated 01/28/25 @ 07:33 by Ajay Donis DO) Abdominal pain (Acute) Nausea & vomiting (Acute) Rising PSA level (Acute) Family history of prostate cancer (Acute) BPH w urinary obs/LUTS (Acute) Acute appendicitis (Acute) Shortness of breath (Acute) Chest pain (Acute) Elevated troponin (Acute) Medical History COVID-19 Vomiting Insomnia GERD (gastroesophageal reflux disease) Surgical History EGD - MAC (11/23/16) Colonoscopy - MAC (11/23/16) Social History Smoking/Tobacco Use Status: Never Smoking risk assessment performed?: Yes Alcohol Intake: current Alcohol Intake frequency: holidays/special occasions only Drug use: Never Substance use type: does not use Housing: other Do you feel safe at home: Yes Do you feel safe in your relationship?: Yes
[2025-01-28 06:56] LABS: Lactate 1.2 mmol/L (<or=2.0)
[2025-01-28 06:58] LABS: Abs Immature Grans 0.02 10^3/uL (0.0-0.06); Absolute Basophil Count 0.02 10^3/uL (0.0-0.2); Absolute Eosinophil Count 0.02 10^3/uL (0.0-0.7); Absolute Lymphocyte Count 0.61 10^3/uL (1.2-3.4); Absolute Monocyte Count 0.37 10^3/uL (0.1-0.8); Absolute Neutrophil Count 7.07 10^3/uL (1.2-6.7); Basophils % 0.2 %; Eosinophils % 0.2 %; HCT 47.7 % (40.0-50.0); HGB 16.5 g/dL (13.5-17.5); Immature Grans % 0.2 %; Lymphocytes % 7.5 %; MCH 31.3 pg (27.0-33.0); MCHC 34.6 % (32.0-36.0); MCV 91 fL (80-95); MPV 9.3 fL (8.0-11.0); Monocytes % 4.6 %; Neutrophils % 87.3 %; Platelet Count 260 10^3/uL (130-400); RBC 5.27 10^6/uL (4.36-5.78); RDW 12.6 % (11.8-14.1); RDW-SD 41.8 fL; WBC 8.11 10^3/uL (4.4-10.8)
[2025-01-28] MEDS: Ondansetron 4 MG/2 ML VIAL IVP ×2 (07:10→17:23)
[2025-01-28] MEDS: ACETAMINOPHEN 1,000 MG/100 ML BAG 100 MG (07:10)
[2025-01-28] MEDS: Ketorolac 15 MG/ML VIAL IVP (07:10)
[2025-01-28] MEDS: Normal Saline 1,000 ML 1000 ML IV (07:11)
[2025-01-28 07:13] LABS: ALT 39 U/L (16-63); AST 23 U/L (15-37); Albumin 4.2 g/dL (3.4-5.0); Alkaline Phosphatase 90 U/L (46-116); Anion Gap 8.9 mmol/L (3-11); BUN 19 mg/dL (7-18); Bilirubin, Total 0.5 mg/dL (0.2-1.0); CO2 27.1 mmol/L (21.0-32.0); CREATININE 1.1 mg/dL (0.70-1.30); Calcium 9.6 mg/dL (8.5-10.1); Chloride 105 mmol/L (98-107); Estimated GFR 75.43 (mL/min/1.73m2); Glucose 158 mg/dL (74-106); Lipase 29 U/L (<78); Potassium 3.8 mmol/L (3.5-5.1); Sodium 141 mmol/L (136-145); Total Protein 7.8 g/dL (6.4-8.2)
[2025-01-28 07:25] LABS: Bilirubin Negative (Negative); Blood Negative (Negative); Clarity Clear (Clear); Glucose Negative (Negative); Ketones Trace mg/dL (Negative); Leukocyte Esterase Negative (Negative); Nitrite Negative (Negative); Urobilinogen 0.2 mg/dL (Up to 0.2); pH 7.5 (5-8)
[2025-01-28 07:32] LABS: Bacteria Negative HPF (Negative); C & S Indicated? No; Casts 0-2 Hyaline LPF (Negative); Crystals Negative HPF (Negative); Epithelial Cells Rare HPF (Negative); Mucus Trace (Negative); RBC Negative HPF (0-2); WBC Negative HPF (0-5)
[2025-01-28] MEDS: Omnipaque 350 MG/ML 100 ML BTL 75 ML IJ (07:56)
[2025-01-28] MEDS: Normal Saline - Diluent 50 ML VIAL IV (07:59)
--- NOTE | 2025-01-28 08:07 | W.EDPROG ---
Date of service: 01/28/25 Time of Service: 08:08 Medical Decision Making Care assumed from outgoing provider. Patient is a 64-year-old gentleman with past medical history of ruptured appendicitis and partial colectomy presenting with abdominal pain and vomiting. The patient is currently pending a CT read at the time of signout. Lab work was reviewed and there were no acute abnormalities. Discussed CT findings with V lula, there is evidence of a small bowel obstruction. Patient does have history of this as well. The patient will have an NG tube placed. Updated surgery so they are aware and the patient will be admitted to hospital medicine. Quality:[facility] Health Related Social Needs: No Data to Display Discharge Plan Disposition Patient Disposition: Admit to [facility] Condition: Fair Discharge Details Clinical Impression: SBO (small bowel obstruction), Nausea & vomiting, Abdominal pain Primary Care Provider: Surinder Chen ED Provider: Colleen Mares Home Meds and New Rx's Prescriptions: No Action tamsulosin [Flomax] 0.4 mg capsule 0.4 mg PO DAILY Qty: 90 3RF tadalafil [Cialis] 5 mg tablet 5 mg PO DAILY Qty: 90 1RF Rx Instructions: For BPH with LUTS cyclobenzaprine 10 mg tablet 10 mg PO HS clotrimazole-betamethasone 1-0.05 % cream 1 applic topical BID omeprazole 40 mg capsule,delayed release(DR/EC) 40 mg PO QDAY ibuprofen [Advil Liqui-Gel] 200 mg Capsule 800 mg PO DAILY
--- NOTE | 2025-01-28 08:24 | DI.VRAD_ITS ---
Addendum created by Vee Barriga MD on 01/28/2025 8:24:33 AM EDT: THIS REPORT CONTAINS FINDINGS THAT MAY BE CRITICAL TO PATIENT CARE. The findings were verbally communicated via telephone conference at 8:23 AM EDT on 01/28/[address] Mares. The findings were acknowledged and understood. Initial report created on 01/28/2025 8:23:11 AM EDT: PROCEDURE INFORMATION: Exam: CT Abdomen And Pelvis With Contrast Exam date and time: 01/28/2025 7:37 AM Age: 64 years old Clinical indication: Other: Gen abd pain, vomitting, HX of colectomy/appe TECHNIQUE: Imaging protocol: Computed tomography of the abdomen and pelvis with contrast. Radiation optimization: All CT scans at this facility use at least one of these dose optimization techniques: automated exposure control; mA and/or kV adjustment per patient size (includes targeted exams where dose is matched to clinical indication); or iterative reconstruction. Contrast material: OMNI 350; Contrast volume: 75 ml; Contrast route: INTRAVENOUS (IV); COMPARISON: CT ABDOMEN PELVIS W 10/24/2023 4:32 PM FINDINGS: Lungs: Minimal linear presumed scarring again noted in the right middle lobe. Lung bases are otherwise clear. No pleural effusions. Liver: No acute abnormality. A 1.3 cm hypoattenuating lesion in the lateral right hepatic lobe (axial image 17) is indeterminate though stable since 10/24/2023. Gallbladder and biliary ducts: Unremarkable. No calcified gallstones. No intrahepatic or extrahepatic biliary ductal dilation. Pancreas: Fatty atrophy of the head and uncinate process again noted. No acute abnormality. Spleen: Unremarkable. The spleen is normal in size. Adrenal glands: Unremarkable. Kidneys and ureters: Normal and symmetric renal enhancement. No hydronephrosis or hydroureter. No suspicious renal masses. Stomach and bowel: The stomach is mildly distended with fluid and gas. There is a small hiatal hernia. There are multiple loops of proximal and mid small bowel which contain fluid and air-fluid levels, consistent with small bowel obstruction. There is a transition point in small bowel caliber in the lower abdomen near midline (see axial images 63-70, coronal images 32-37). The large bowel is normal in caliber. There is an ileocolic anastomosis in the lateral right abdomen. There is minimal colonic diverticulosis without evidence of diverticulitis. There is a moderate amount of retained formed stool in the colon. Appendix: Surgically absent. Intraperitoneal space: Unremarkable. No ascites, fluid collection, or pneumoperitoneum. Retroperitoneal space: Unremarkable. No retroperitoneal collection or mass. Vasculature: Minimal atherosclerotic vascular calcifications. Normal caliber abdominal aorta. Lymph nodes: No pathologically enlarged lymph nodes. Urinary bladder: Nondistended. Mild mass effect on the base of the bladder by the enlarged prostate gland. Reproductive: Mildly enlarged prostate gland which protrudes into the base of the urinary bladder. Bones/joints: Degenerative changes. Transitional lumbosacral anatomy. No suspicious osseous lesions. Soft tissues: Small fat-containing right inguinal hernia. Tiny fat-containing umbilical and left inguinal hernias. IMPRESSION: 1. Mid small bowel obstruction; see details above. 2. A 1.3 cm lesion in the right hepatic lobe, stable since 10/24/2023 though indeterminate. This could be further characterized with nonemergent liver MRI (without and with contrast). 3. Additional stable chronic and incidental findings are discussed in the body of the report. Dictated and Authenticated by: Vee Barriga MD. Orderin Gagandeep Moss MD
--- NOTE | 2025-01-28 08:34 | SCONE_ITS ---
Date of service: 01/28/25 Time of Service: 08:34 Assessment and Plan Assessment and plan (1) SBO (small bowel obstruction): Status: Acute Assessment and plan: Certainly, the onset of symptoms and CT scan supports the diagnosis of partial small bowel obstruction. In light of surgical history this is most likely secondary to adhesions. I agree with a trial of nonoperative management, and I think a Gastrografin challenge is very reasonable. I will go ahead and put the orders in for the Gastrografin. We can see how he tolerates the contrast, and the progression over the next 24 hours. History of Present Illness History of Present Illness Chief Complaint: Abdominal pain Narrative: Fernando is 64 years old. He comes to the emergency department with a chief complaint of abdominal pain. He says it started last night sometime after dinner. He began experiencing sharp, crampy pain that eventually evolved into some nausea followed by vomiting. Vomiting relieve the symptoms just a little bit, but quickly returned. Pain tends to radiate across the abdomen and down towards midline. He had no other change in his bowel habits. Symptoms are similar to a partial bowel obstruction he experienced in October 2023. That was managed nonoperatively. Through the night a little bit, but still had increasing pain this morning, so he came to the ER. In the emergency department, he was found to have a white blood cell count around 8, and he underwent a CT scan that demonstrated a partial small bowel obstruction. Hemodynamics are reassuring. Past surgical history includes open appendectomy for perforated appendicitis in 2020. 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 Other past medical history includes gastroesophageal reflux disease and benign prostatic hyperplasia Review of Systems Constitutional Constitutional: Denies fatigue, Denies fever(s), Reports poor appetite and Denies weakness Eyes Eyes: Reports system reviewed and no additional complaints, except as documented ENT Ears, Nose, Mouth, and Throat: Reports system reviewed and no additional complaints, except as documented Cardiovascular Cardiovascular: Denies chest pain and Denies dyspnea Respiratory Respiratory: Denies chest congestion, Denies cough and Denies dyspnea Gastrointestinal Gastrointestinal: Reports bloating, Reports nausea and Reports vomiting Genitourinary Genitourinary: Reports system reviewed and no additional complaints, except as documented Musculoskeletal Musculoskeletal: Reports system reviewed and no additional complaints, except as documented Neurologic Neurologic: Denies weakness Endocrine Endocrine: Denies fatigue Hematologic/Lymphatic Hematologic/Lymphatic: Denies easy bleeding and Denies easy bruising PFSH All Active Problems (Updated 01/28/25 @ 08:33 by Colleen Mares MD) SBO (small bowel obstruction) (Acute) Abdominal pain (Acute) Nausea & vomiting (Acute) Rising PSA level (Acute) Family history of prostate cancer (Acute) BPH w urinary obs/LUTS (Acute) Acute appendicitis (Acute) Shortness of breath (Acute) Chest pain (Acute) Elevated troponin (Acute) Medical History COVID-19 Vomiting Insomnia GERD (gastroesophageal reflux disease) Surgical History EGD - MAC (11/23/16) Colonoscopy - MAC (11/23/16) Social History Smoking/Tobacco Use Status: Never Smoking risk assessment performed?: Yes Alcohol Intake: current Alcohol Intake frequency: holidays/special occasions only Drug use: Never Substance use type: does not use Housing: other Do you feel safe at home: Yes Do you feel safe in your relationship?: Yes Exam Const General: cooperative, comfortable and no acute distress Orientation: alert and oriented x3 HENMT Head: normal to inspection Eyes General: appearance normal, both eyes and all related structures Neck Neck: normal visual inspection, full ROM and no lymphadenopathy Resp Auscultation: clear to auscultation bilaterally Cardio Rate: regular rate Rhythm: regular rhythm Heart Sounds: S1 normal and S2 normal GI Inspection: normal to inspection and distended (Minimal) Palpation: soft, no guarding, no hernias and no masses Percussion: tympanic to percussion Auscultation: normal bowel sounds Results Last Vital Signs Temp 97.7 F 01/28/25 06:34 Pulse 79 01/28/25 08:01 Resp 20 01/28/25 06:34 BP 120/76 01/28/25 08:01 Pulse Ox 96 01/28/25 06:34 Labs 01/28/25 06:50 01/28/25 06:50 Labs: Laboratory Results - last 24 hr 01/28/25 01/28/25 06:50 07:07 WBC 8.11 RBC 5.27 Hgb 16.5 Hct 47.7 MCV 91 MCH 31.3 MCHC 34.6 RDW 12.6 Plt Count 260 MPV 9.3 Immature Gran % 0.2 Neutrophils % 87.3 Lymphocytes % 7.5 Monocytes % 4.6 Eosinophils % 0.2 Basophils % 0.2 Nucleated RBC % 0.0 Absolute Neutrophils 7.07 H Absolute Lymphocytes 0.61 L Absolute Monocytes 0.37 Absolute Eosinophils 0.02 Absolute Basophils 0.02 VBG Lactate 1.2 Sodium 141 Potassium 3.8 Chloride 105 Carbon Dioxide 27.1 Anion Gap 8.9 BUN 19 H Creatinine 1.1 Est GFR (CKD-EPI 2020) 75.43 Glucose 158 H Calcium 9.6 Total Bilirubin 0.5 AST 23 ALT 39 Alkaline Phosphatase 90 Total Protein 7.8 Albumin 4.2 Lipase 29 Urine Color Yellow Urine Clarity Clear Urine pH 7.5 Ur Specific [place] 1.020 Urine Protein 30 H Urine Ketones Trace H Urine Blood Negative Urine Nitrite Negative Urine Bilirubin Negative Urine Urobilinogen 0.2 Ur Leukocyte Esterase Negative Urine RBC Negative Urine WBC Negative Ur Epithelial Cells Rare Urine Crystals Negative Urine Bacteria Negative Urine Casts 0-2 Hyaline Urine Mucus Trace Ur Culture Indicated? No Urine Glucose Negative Imaging Abdomen CT scan report/results: report reviewed and image reviewed CT scan - pelvis: report reviewed and image reviewed
--- NOTE | 2025-01-28 08:38 | W.PM.HP.N ---
Date of service: 01/28/25 Time of Service: 08:38 Assessment and Plan Assessment and plan (1) SBO (small bowel obstruction): Status: Acute Assessment and plan: - As seen on CT abdomen pelvis - This is in the setting of open appendectomy in 2020 as well as nonoperative resolved small bowel obstruction in October 2023 - Continue NG tube at this time - Appreciate general surgery recommendations; Gastrografin study has been ordered - Will manage NG tube and diet advancement as per general surgery recommendations (2) GERD (gastroesophageal reflux disease): Assessment and plan: - Hold home PPI while n.p.o. History of Present Illness History of Present Illness Chief Complaint: abdominal pain, N/V Narrative: 64-year-old male with a past medical history of GERD and open appendectomy for perforated appendicitis in 2020 who presents emergency department with abdominal pain. Patient states that the evening prior he had abdominal pain after eating dinner that was sharp and crampy that was followed by nausea and vomiting. He stated that the vomiting slightly improved his symptoms with a quickly returned prompting him to come to the emergency department. Additionally, patient also had episode of small bowel obstruction in October 2023 which was managed nonoperatively and improved. In the emergency department the patient was noted as having normal vital signs, normal CBC and CMP but did have tenderness to palpation of his abdomen. Ultimately, CT abdomen pelvis showed small bowel obstruction with a transition point. General surgery was consulted and agreed with management with NG tube and also ordered for Gastrografin study. At which time emergency room physician paged hospitalist for admission for patient with small bowel obstruction. Review of Systems All systems reviewed & are unremarkable except as noted in HPI and below PFSH All Active Problems (Updated 01/28/25 @ 09:28 by ZEN ESCOBAR) SBO (small bowel obstruction) (Acute) Abdominal pain (Acute) Nausea & vomiting (Acute) Rising PSA level (Acute) Family history of prostate cancer (Acute) BPH w urinary obs/LUTS (Acute) Acute appendicitis (Acute) Shortness of breath (Acute) Chest pain (Acute) Elevated troponin (Acute) Medical History COVID-19 Vomiting Insomnia GERD (gastroesophageal reflux disease) Surgical History EGD - MAC (11/23/16) Colonoscopy - MAC (11/23/16) Social History Smoking/Tobacco Use Status: Never Smoking risk assessment performed?: Yes Alcohol Intake: current Alcohol Intake frequency: holidays/special occasions only Drug use: Never Substance use type: does not use Housing: other Do you feel safe at home: Yes Do you feel safe in your relationship?: Yes Meds Allergies and Home Medications Allergies Allergy/AdvReac Type Severity Reaction Status Date / Time naproxen sodium (From Aleve) Allergy Skin Rash Unverified 01/28/25 06:36 tamsulosin AdvReac Mild Dizziness/L Verified 01/28/25 06:36 ighthead aspirin AdvReac GI Bleeding Unverified 01/28/25 06:36 Home Medications ?Medication ?Instructions ?Recorded ?Confirmed ?Type ibuprofen 200 mg capsule (Advil 800 mg PO DAILY 01/09/23 01/28/25 History Liqui-Gel) clotrimazole-betamethasone 1 1 applic topical BID 08/05/23 01/28/25 History %-0.05 % topical cream cyclobenzaprine 10 mg tablet 10 mg PO HS 08/05/23 01/28/25 History omeprazole 40 mg capsule,delayed 40 mg PO QDAY 08/05/23 01/28/25 History release tamsulosin 0.4 mg capsule (Flomax) 0.4 mg PO DAILY #90 caps 10/18/24 01/28/25 Rx tadalafil 5 mg tablet (Cialis) 5 mg PO DAILY #90 tabs 10/25/24 01/28/25 Rx Exam Narrative Exam Narrative: Well-appearing gentleman laying in bed in no acute distress, ANO x 4, NG tube in place, heart regular rhythm, lungs good auscultation bilaterally, abdomen distended with mild to moderate diffuse tenderness without rebound or guarding Results Labs 01/28/25 06:50 01/28/25 06:50 Labs: Laboratory Results - last 24 hr 01/28/25 01/28/25 06:50 07:07 WBC 8.11 RBC 5.27 Hgb 16.5 Hct 47.7 MCV 91 MCH 31.3 MCHC 34.6 RDW 12.6 Plt Count 260 MPV 9.3 Immature Gran % 0.2 Neutrophils % 87.3 Lymphocytes % 7.5 Monocytes % 4.6 Eosinophils % 0.2 Basophils % 0.2 Nucleated RBC % 0.0 Absolute Neutrophils 7.07 H Absolute Lymphocytes 0.61 L Absolute Monocytes 0.37 Absolute Eosinophils 0.02 Absolute Basophils 0.02 VBG Lactate 1.2 Sodium 141 Potassium 3.8 Chloride 105 Carbon Dioxide 27.1 Anion Gap 8.9 BUN 19 H Creatinine 1.1 Est GFR (CKD-EPI 2020) 75.43 Glucose 158 H Calcium 9.6 Total Bilirubin 0.5 AST 23 ALT 39 Alkaline Phosphatase 90 Total Protein 7.8 Albumin 4.2 Lipase 29 Urine Color Yellow Urine Clarity Clear Urine pH 7.5 Ur Specific [place] 1.020 Urine Protein 30 H Urine Ketones Trace H Urine Blood Negative Urine Nitrite Negative Urine Bilirubin Negative Urine Urobilinogen 0.2 Ur Leukocyte Esterase Negative Urine RBC Negative Urine WBC Negative Ur Epithelial Cells Rare Urine Crystals Negative Urine Bacteria Negative Urine Casts 0-2 Hyaline Urine Mucus Trace Ur Culture Indicated? No Urine Glucose Negative Last Vital Signs Temp 97.7 F 01/28/25 06:34 Pulse 79 01/28/25 08:01 Resp 20 01/28/25 06:34 BP 120/76 01/28/25 08:01 Pulse Ox 96 01/28/25 06:34 Time Spent Time spent with Patient: >75 minutes Time was spent: preparing to see the patient(eg.review tests), obtaining and/or reviewing separately otained hiistory, ordering medications,tests, procedures, referring, communicating with other health ambulatory care coordinator, indepentently interpreting results, counseling the patient and care coordination
--- NOTE | 2025-01-28 08:45 | DI.RAD_ITS ---
Exam(s) XR ABDOMEN FLAT PLATE EXAM: 2D digital imaging was performed. CLINICAL HISTORY: ng tube placement. COMPARISON: CT CT ABDOMEN PELVIS W from 01/28/2025 TECHNIQUE: Supine views of the abdomen performed. FINDINGS: BOWEL GAS PATTERN: A nasogastric tube has been inserted which projects in the stomach. There is dila tation of loops of small bowel throughout the abdomen. Gas is also seen in the colon. The colon is not abnormally dilated and shows a normal quantity of stool. There is contrast material within the renal collecting systems and bladder from recent CT. OSSEOUS STRUCTURES: Unremarkable for age. IMPRESSION: 1. Satisfactory placement of nasogastric tube. 2. No change in small bowel dilatation. The preliminary [facility] report was reviewed. DATA REPOSITORY: RADIATION DOSE DELIVERED:
[2025-01-28] MEDS: Lidocaine 2% Jelly 11 ML SYR (08:52)
--- NOTE | 2025-01-28 09:30 | DI.RAD_ITS ---
Exam(s) XR ABDOMEN FLAT PLATE EXAM: 2D digital imaging was performed. CLINICAL HISTORY: Gastrografin challenge. COMPARISON: CR,XR XR ABDOMEN FLAT PLATE from 01/28/2025 TECHNIQUE: Supine views of the abdomen performed. FINDINGS: A nasogastric tube tip lies just below the GE junction with the side port in the lower esophagus and should be advanced. Similar dilatation loops of small bowel. Gas is also seen in the colon which is not abnormally diste nded. The administered Gastrografin is noted in the right colon. Residual contrast from prior CT no srikanth in bladder. Lung bases are clear. IMPRESSION: Similar dilatation of loops of small bowel. The Gastrografin is seen in the colon, consistent with p artial obstruction. The nasogastric tube should be further advanced into the stomach. DATA REPOSITORY: RADIATION DOSE DELIVERED:
--- NOTE | 2025-01-28 09:38 | DI.VRAD_ITS ---
PROCEDURE INFORMATION: Exam: XR Abdomen Exam date and time: 01/28/2025 9:25 AM Age: 64 years old Clinical indication: Other: Ng tube placement TECHNIQUE: Imaging protocol: Radiologic exam of the abdomen. Views: Frontal supine view of the abdomen. 1 View. COMPARISON: CT ABDOMEN PELVIS W 01/28/2025 7:37 AM FINDINGS: Tubes, catheters and devices: There has been interval placement of a nasogastric tube with its tip projecting over the stomach. Its side port is well below the gastroesophageal junction. Gastrointestinal tract: Gaseous distension of multiple small bowel loops consistent with a persistent small bowel obstruction. Bones/joints: Degenerative changes. No acute osseous abnormality. IMPRESSION: 1. Tip of nasogastric tube projects over the stomach. 2. Persistent small bowel obstruction. Dictated and Authenticated by: Vee Barriga MD. Orderin Vishnu Loaiza MD
--- NOTE | 2025-01-28 10:42 | W.PC.ACHO ---
Registration Status: Primary Language: Preferred Language: ED Information & Data Chief Complaint Abd Prob 01/28/25 06:44 Triage Note General abd/epigastric pain 01/28/25 06:31 w/ back pain starting 1999 last night (01/27) around 2200 PT began experiencing persistent nausea and constant vomiting. Nausea not improved by vomiting. Medical / Surgical History (Last Reviewed 01/24/24 @ 13:01 by Carey Wise DNP) COVID-19 Vomiting Insomnia GERD (gastroesophageal reflux disease) (Last Reviewed 01/24/24 @ 13:01 by Carey Wise DNP) EGD - MAC (11/23/16) Colonoscopy - MAC (11/23/16) Most Recent Vital Signs Temperature 36.5 C 01/28/25 06:34 Pulse 79 01/28/25 08:01 Respiratory Rate 20 01/28/25 06:34 Blood Pressure 120/76 01/28/25 08:01 Blood Pressure Mean 89 01/28/25 08:01 Blood Pressure Position Sitting 01/28/25 06:34 Pulse Oximetry 96 01/28/25 06:34 Oxygen Delivery Method Room Air 01/28/25 06:34 Oxygen Flow Rate 0 01/28/25 06:34 Allergies naproxen sodium (From Aleve) Allergy (Unverified 01/28/25 06:36) Skin Rash tamsulosin Adverse Reaction (Mild, Verified 01/28/25 06:36) Dizziness/Lighthead aspirin Adverse Reaction (Unverified 01/28/25 06:36) GI Bleeding Active Medications Generic Name Dose Route Start Last Admin Trade Name Freq PRN Reason Stop Dose Admin Iohexol 75 ml 01/28/25 08:00 01/28/25 07:56 Omnipaque 350 Mg/Ml 100 Ml Btl IJ 02/27/25 23:59 75 ml DIRECTED KENNETH Administration Sodium Chloride 50 ml 01/28/25 08:00 01/28/25 07:59 Normal Saline - Diluent 50 Ml Vial IV 50 ml .FOR DI USE KENNETH Administration IV IV Catheter Type [Right Saline Lock Antecubital] IV Catheter Gauge [Right 18 Antecubital] Diagnostics 01/28/25 01/28/25 Range/Units 07:07 06:50 WBC 8.11 (4.4-10.8) 10^3/uL RBC 5.27 (4.36-5.78) 10^6/uL Hgb 16.5 (13.5-17.5) g/dL Hct 47.7 (40.0-50.0) % MCV 91 (80-95) fL MCH 31.3 (27.0-33.0) pg MCHC 34.6 (32.0-36.0) % RDW 12.6 (11.8-14.1) % Plt Count 260 (130-400) 10^3/uL MPV 9.3 (8.0-11.0) fL Immature Gran % 0.2 % Neutrophils % 87.3 % Lymphocytes % 7.5 % Monocytes % 4.6 % Eosinophils % 0.2 % Basophils % 0.2 % Nucleated RBC % 0.0 (0.0-0.3) % Absolute Neutrophils 7.07 H (1.2-6.7) 10^3/uL Absolute Lymphocytes 0.61 L (1.2-3.4) 10^3/uL Absolute Monocytes 0.37 (0.1-0.8) 10^3/uL Absolute Eosinophils 0.02 (0.0-0.7) 10^3/uL Absolute Basophils 0.02 (0.0-0.2) 10^3/uL VBG Lactate 1.2 (<or=2.0) mmol/L Sodium 141 (136-145) mmol/L Potassium 3.8 (3.5-5.1) mmol/L Chloride 105 (98-107) mmol/L Carbon Dioxide 27.1 (21.0-32.0) mmol/L Anion Gap 8.9 (3-11) mmol/L BUN 19 H (7-18) mg/dL Creatinine 1.1 (0.70-1.30) mg/dL Est GFR (CKD-EPI 2020) 75.43 (mL/min/1.73m2) Glucose 158 H (74-106) mg/dL Calcium 9.6 (8.5-10.1) mg/dL Total Bilirubin 0.5 (0.2-1.0) mg/dL AST 23 (15-37) U/L ALT 39 (16-63) U/L Alkaline Phosphatase 90 (46-116) U/L Total Protein 7.8 (6.4-8.2) g/dL Albumin 4.2 (3.4-5.0) g/dL Lipase 29 (<78) U/L Urine Color Yellow (Yellow) Urine Clarity Clear (Clear) Urine pH 7.5 (5-8) Ur Specific [place] 1.020 (1.005-1.025) Urine Protein 30 H (Neg-Trace) mg/dL Urine Ketones Trace H (Negative) mg/dL Urine Blood Negative (Negative) Urine Nitrite Negative (Negative) Urine Bilirubin Negative (Negative) Urine Urobilinogen 0.2 (Up to 0.2) mg/dL Ur Leukocyte Esterase Negative (Negative) Urine RBC Negative (0-2) HPF Urine WBC Negative (0-5) HPF Ur Epithelial Cells Rare (Negative) HPF Urine Crystals Negative (Negative) HPF Urine Bacteria Negative (Negative) HPF Urine Casts 0-2 Hyaline (Negative) LPF Urine Mucus Trace (Negative) Ur Culture Indicated? No Urine Glucose Negative (Negative) mg/dL Intake and Output - 24 Hour Total 01/28/25 06:25 thru 01/28/25 08:49 Intake Total 1000 Output Total 200 Balance 800 Weight 81.647 kg Intake: IV 1000 Output: Gastric Drainage 200 Right Nare 200 Falls Risk Assessment History of Falls No History 01/28/25 06:34 Contributing Factors No Factors 01/28/25 06:34 Ambulatory Aids Independent 01/28/25 06:34 Tubes/Lines None 01/28/25 06:34 Gait Evaluation No gait disturbance 01/28/25 06:34 Cognition No cognitive impairment 01/28/25 06:34 Fall Total Score 0 01/28/25 06:34 Level of Risk Standard/Low Risk 01/28/25 06:34 Problems (Last Reviewed 01/24/24 @ 13:01 by Carey Wise DNP) SBO (small bowel obstruction) (Acute) v v v v v v v v v Sending and/or Receiving Nurses: Please use comment section below to note any information pertinent to the patient hand-off not included above. Information / Comments: NG tube placed at 58cm at the nares, xray confirmed. Report received from:04 called ER for report, nurse is working with another patient and will call back. Report received from Claudia Castañeda RN to Chiquita Moss RN
[2025-01-28] MEDS: Gastrografin 120 ML BTL PO (12:03)
[2025-01-28] MEDS: Normal Saline Flush 10 ML SYR IVP ×3 (12:43→20:32)
[2025-01-28] MEDS: Normal Saline 1,000 ML 75 ML IV (12:48)
--- NOTE | 2025-01-28 21:51 | DI.VRAD_ITS ---
PROCEDURE INFORMATION: Exam: XR Abdomen Exam date and time: 01/28/2025 9:00 PM Age: 64 years old Clinical indication: Other: Gastrographin challenge; Gastrographin given at 1203, PT vomited after TECHNIQUE: Imaging protocol: Radiologic exam of the abdomen. Views: Frontal supine view of the abdomen. 1 View. Other contrast: Oral, gastrographin; COMPARISON: CR XR ABDOMEN FLAT PLATE 01/28/2025 9:[address] abdomen and pelvis dated 01/28/2025 FINDINGS: Tubes, catheters and devices: Enteric tube tip within the proximal stomach and distal side port in the distal esophagus. Tube should be advanced several cm into the stomach. Gastrointestinal tract: Multiple loops of dilated, gas-filled small bowel as before. Small amount of radiodense material within the right colon, new from comparison study, likely administered contrast. No pneumoperitoneum. Vasculature: Small amount of radiodense material within the urinary bladder, compatible with excreted contrast from recent intravenous contrast enhanced examination. Bones/joints: Unremarkable. IMPRESSION: 1. Enteric tube tip within the proximal stomach and distal side port in the distal esophagus. Tube should be advanced several cm into the stomach. 2. Persistent gaseous dilation of multiple loops of small bowel, likely representing ileus or partial small bowel obstruction. No evidence of complete obstruction, as administered enteric contrast has passed into the proximal colon. Recommend continued follow-up. Dictated and Authenticated by: Jeffy Ram MD. Orderin Lisandro Torrez MD
[2025-01-29] VITALS (7 sets, daily range): BP systolic 113–121; BP diastolic 69–80; PULSE 62–76; RESP 16–20; TEMP 37–37.9; O2SAT 91–95
[2025-01-29] MEDS: Normal Saline 1,000 ML 75 ML IV ×2 (01:10→13:10)
[2025-01-29 07:08] LABS: HCT 43.7 % (40.0-50.0); MCH 31.9 pg (27.0-33.0); MCHC 34.3 % (32.0-36.0); MCV 93 fL (80-95); MPV 9.8 fL (8.0-11.0); Platelet Count 238 10^3/uL (130-400); RDW 13.2 % (11.8-14.1); RDW-SD 45.2 fL; WBC 7.13 10^3/uL (4.4-10.8)
[2025-01-29 07:24] LABS: BUN 18 mg/dL (7-18); Calcium 8.7 mg/dL (8.5-10.1); Chloride 108 mmol/L (98-107); Estimated GFR 84.57 (mL/min/1.73m2); Glucose 116 mg/dL (74-106); Potassium 3.7 mmol/L (3.5-5.1); Sodium 142 mmol/L (136-145)
--- NOTE | 2025-01-29 07:27 | W.PM.PROGNOT ---
Date of Service Date of service: 01/29/25 Time of Service: 07:28 Assessment and Plan Assessment and plan (1) SBO (small bowel obstruction): Status: Acute Assessment and plan: His exam this morning is certainly reassuring, and all of his vital signs are totally within normal limits. The Gastrografin that he got yesterday mated into the cecum within 8 hours, which suggest a favorable nonoperative prognosis. I think it is very reasonable to clamp the nasogastric tube today, and add a little bit of MiraLAX. I will also restart his omeprazole since he does have a little bit of dyspepsia. Subjective Subjective Interval history since last seen: Demetris tells me he is feeling much better this morning. He says his abdomen is less distended. He is passing flatus, but he has not yet had a bowel movement. He is quite hungry this morning he denies any abdominal pain currently. Exam GI Other: Abdomen is far less distended. He is not tender at all. Bowel sounds are quite hypoactive, but present. Objective Last Vital Signs Temp 99.0 F 01/29/25 05:29 Pulse 76 01/29/25 05:29 Resp 16 01/29/25 05:29 BP 113/72 01/29/25 05:29 Pulse Ox 95 01/29/25 05:29 Laboratory Results - last 24 hr 01/28/25 01/29/25 07:07 06:05 WBC 7.13 RBC 4.70 Hgb 15.0 Hct 43.7 MCV 93 MCH 31.9 MCHC 34.3 RDW 13.2 Plt Count 238 MPV 9.8 Urine RBC Negative Urine WBC Negative Ur Epithelial Cells Rare Urine Crystals Negative Urine Bacteria Negative Urine Casts 0-2 Hyaline Urine Mucus Trace Ur Culture Indicated? No Time Spent with Patient Time Spent with Patient: 25-34 minutes Time was spent: preparing to see the patient(eg.review tests), ordering medications,tests, procedures, indepentently interpreting results, counseling the patient and care coordination
[2025-01-29] MEDS: Enoxaparin 40 MG/0.4 ML SYR SC (07:36)
[2025-01-29] MEDS: Normal Saline Flush 10 ML SYR IVP ×3 (07:37→20:17)
[2025-01-29] MEDS: Polyethylene Glycol 3350 17 GM PACKET PO ×2 (10:45→20:16)
[2025-01-29] MEDS: Omeprazole 20 MG CAPCR PO (10:45)
--- NOTE | 2025-01-29 13:53 | PGE_ITS ---
Date of Service Date of service: 01/29/25 Time of Service: 09:30 Assessment and Plan Assessment and plan (1) SBO (small bowel obstruction): Status: Acute Assessment and plan: - As seen on CT abdomen pelvis on admission - This is in the setting of open appendectomy in 2020 as well as nonoperative resolved small bowel obstruction in October 2023 - I agree with Dr. Mcmahon he is clearly clinically improving - NGT clamped, given PEG, possibly to be removed this afternoon per surgery. - We did review diet/prevention. He may benefit from daily soluble fiber (psyllium) supplement after resolution of this episode (2) GERD (gastroesophageal reflux disease): Assessment and plan: - Holding home PPI while n.p.o. but he is feeling heartburn so give IV Subjective Subjective Patient reports: feels better, voiding w/o difficulty and flatus; denies vomiting, shortness of breath or fever Interval history since last seen: Seen by surgery this morning, plan to clamp NGT Feeling better today. passing a lot of gas, though no BM. Abd pain is getting better, feels less bloated and less nauseous. NGT just feels uncomfortable and gags. He also feels some heartburn coming back He states he normally only has a BM every 3-4 days Exam Narrative Exam Narrative: Well-appearing gentleman laying in bed in no acute distress, ANO x 4, NG tube in place, heart regular rhythm, lungs good auscultation bilaterally, abdomen mildly distended with minimal diffuse tenderness without rebound or guarding, +BS in 4 quadrants. extremities nontender, no edema Objective Last Vital Signs Temp 37.1 C 01/29/25 11:44 Pulse 64 01/29/25 11:44 Resp 16 01/29/25 11:44 BP 114/78 01/29/25 11:44 Pulse Ox 95 01/29/25 11:44 Laboratory Results - last 24 hr 01/29/25 06:05 WBC 7.13 RBC 4.70 Hgb 15.0 Hct 43.7 MCV 93 MCH 31.9 MCHC 34.3 RDW 13.2 Plt Count 238 MPV 9.8 Sodium 142 Potassium 3.7 Chloride 108 H Carbon Dioxide 28.0 Anion Gap 6.0 BUN 18 Creatinine 1.0 Est GFR (CKD-EPI 2020) 84.57 Glucose 116 H Calcium 8.7 Magnesium 2.0 Time Spent with Patient Time Spent with Patient: 35-49 minutes Time was spent: preparing to see the patient(eg.review tests), obtaining and/or reviewing separately otained hiistory, ordering medications,tests, procedures, referring, communicating with other health hemodialysis patient care specialist, indepentently interpreting results, counseling the patient and care coordination
[2025-01-29] MEDS: Pantoprazole 40 MG VIAL IVP (14:22)
[2025-01-30] MEDS: Normal Saline 1,000 ML 75 ML IV (01:45)
[2025-01-30 03:21] VITALS: BP 114/67; PULSE 76; RESP 19; TEMP 37; O2SAT 94
[2025-01-30 07:03] VITALS: BP 108/70; PULSE 61; RESP 16; TEMP 36.3; O2SAT 99
[2025-01-30] MEDS: Enoxaparin 40 MG/0.4 ML SYR SC (07:43)
[2025-01-30] MEDS: Polyethylene Glycol 3350 17 GM PACKET PO ×2 (07:44→19:41)
--- NOTE | 2025-01-30 09:43 | INITIAL_ITS ---
Date of service: 01/30/25 Time of Service: 09:43 Care Management Initial Assmt Initial Assessment Reason for Hospitalization: SBO Functional Status/Living Situation Patient Presentation: nereyda Willson, lives alone in a 5th wheel camper on private property in [place], [place] He has electricity but no running water. He shared that he brings in bottled water for washing etc and goes to his ex-'s home to shower. he has been there for about 9 years and is comfortable with his arrangement. Demetris informed CM that he has 4 children who live locally. They are in regular contact and supportive of one another. 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 He is independent at baseline and continues to drive. He receives food stamps and fuel assistance and is now receiving social security payments of a bit over $500/month,but no other community services. Town of Residence: [facility] Resides with: Alone Significant Other/Family: Local (has 7 children; 4 live locally and 3 are out of state) Employment Status: Retired Instrumental Activities of Daily Living (ADLs): Independent Medications Medication Management: No Issues/Barriers identified Advance Directives Advance Directives: Do you have an Advance Directive: Y 06/15/21 04:54 AD On File at [facility]: Y 06/15/21 04:54 Date Asked 07/22/24 10/18/24 15:22 AD Date Reviewed 01/28/25 01/28/25 08:45 COLST On File at [facility] COLST Date Scanned Code Status Resuscitation Status Full Code Insurance Coverage/Financial Issues Insurance: Medicaid Care Team Visit Care Team Role Provider Type Konstantin Crisostomo MD [facility] STAFF PHYSICIAN Surinder Chen MD Primary Care Provider NON-[facility] STAFF PHYSICIAN Colleen Mares MD Emergency Provider [facility] STAFF PHYSICIAN Donald Pozo MD Admit Provider [facility] STAFF PHYSICIAN Attending Provider Discharge Potential Discharge Needs: PCP F/U Appt and Surgical F/U Appt Anticipated Barriers to Discharge: None Identified Patient/Family Education Needs: Review discharge instructions, discuss Ask Me Three Transportation: Private vehicle Plan: Anticipate Demetris will be discharged home with no new services when medically cleared. He will follow up with his PCP, surgeon and plan of care and transport with family. CM will follow and continue to support discharge planning. Social Determinants of Health Screening Social Determinants of health last assessed in clinic: 01/30/25 Will the Patient Participate in the Screening?: Yes Do you worry about having a steady place to live?: yes What is your living situation today?: I have housing today, but am worried about losing it Problems where you live: pests such as bugs, ants or mice In the past 12 months, have you had to go without electric, gas, oil or water in your home?: no 1. Within the past 12 months, we worried whether our food would run out before we got money to buy more.: Never true 2. Within the past 12 months, the food we bought just didn't last and we didn't have money to get more.: Never true Has lack of transportation kept you from medical appointments or from doing things needed for daily living?: no Has anyone in your life made you feel unsafe or unsupported?: no How hard is it for you to pay for the very basics like food, housing, medical care, and heating? Would you say it is:: Not hard at all Do you want help finding or keeping work or a job?: I do not need or want help If for any reason you need help with day-to-day activities such as bathing, preparing meals, shopping, managing finances, etc., do you get the help you need?: I don?t need any help How often do you feel lonely or isolated from those around you?: Never Do you speak a language other than Burmese at home?: No Does the patient want assistance with any of the above?: No Health Related Social Needs Health related social needs: inadequate housing (Z59.1) and housing instability, housed, with risk of homelessness (Z59.811) Health related social needs details: denies any needs, patient has stable housing PFSH All Active Problems (Updated 01/30/25 @ 13:38 by Konstantin Crisostomo) DVT prophylaxis (Acute) SBO (small bowel obstruction) (Acute) Abdominal pain (Acute) Nausea & vomiting (Acute) Rising PSA level (Acute) Family history of prostate cancer (Acute) BPH w urinary obs/LUTS (Acute) Acute appendicitis (Acute) Shortness of breath (Acute) Chest pain (Acute) Elevated troponin (Acute) Medical History COVID-19 Vomiting Insomnia GERD (gastroesophageal reflux disease) Surgical History EGD - MAC (11/23/16) Colonoscopy - MAC (11/23/16) Social History Smoking/Tobacco Use Status: Never Smoking risk assessment performed?: Yes Alcohol Intake: current Alcohol Intake frequency: holidays/special occasions only Drug use: Never Substance use type: does not use Housing: other Do you feel safe at home: Yes Do you feel safe in your relationship?: Yes
[2025-01-30 10:58] VITALS: BP 112/66; PULSE 52; RESP 16; TEMP 36.3; O2SAT 95
--- NOTE | 2025-01-30 11:07 | CHAPLAIN ---
Demetris was sitting up in bed when I visited. He is here for a small bowel obstruction. Demetris was pleasant and quiet. He said he's in touch with family by phone. I explained my role and offered support.
--- NOTE | 2025-01-30 12:36 | PHA.REVIEW2 ---
Pharmacy Admission Review Admission Clinical Review Admission Pharmacy Review: SBO (small bowel obstruction) (Acute) naproxen sodium (From Aleve) Allergy (Unverified 01/28/25 06:36) Skin Rash tamsulosin Adverse Reaction (Mild, Verified 01/28/25 06:36) Dizziness/Lighthead aspirin Adverse Reaction (Unverified 01/28/25 06:36) GI Bleeding Resuscitation Status Full Code Height 5 ft 9 in Weight 81.647 kg Pharmacy Admission Review Renal Dosing Renal Dosing: BUN 18 mg/dL (7-18) 01/29/25 06:05 Creatinine 1.0 mg/dL (0.70-1.30) 01/29/25 06:05 Medications needing adjustments: Reviewed Anticoagulation Anticoagulation: Hgb 15.0 g/dL (13.5-17.5) 01/29/25 06:05 Hct 43.7 % (40.0-50.0) 01/29/25 06:05 Plt Count 238 10^3/uL (130-400) 01/29/25 06:05 Creatinine 1.0 mg/dL (0.70-1.30) 01/29/25 06:05 DVT Prophylaxis: Reviewed Opiate Usage Evaluate Pain Scale/Pains Meds: N/A Relevant Labs Relevant Labs: Sodium 142 mmol/L (136-145) 01/29/25 06:05 Potassium 3.7 mmol/L (3.5-5.1) 01/29/25 06:05 Chloride 108 mmol/L (98-107) H 01/29/25 06:05 Magnesium 2.0 mg/dL (1.8-2.4) 01/29/25 06:05 Electrolytes, C-Reactive P, ESR: Reviewed DM Control DM Control: Reviewed Cardiac Review BP, HR, EF%: Reviewed QTc Review QTc: N/A IV to PO Switch IV Medications: Reviewed Home Meds Relevent Home Meds Not ordered & why?: not ordered b/c pt is NPO. Restart once taking po meds. Current Meds Current Medication Order Review: Reviewed
--- NOTE | 2025-01-30 13:02 | W.PM.PROGNOT ---
Date of Service Date of service: 01/30/25 Time of Service: 13:02 Assessment and Plan Assessment and plan (1) SBO (small bowel obstruction): Status: Acute Assessment and plan: Demetris seems to be enjoying resolution of his abdominal obstruction. We talked for a little bit about some strategies moving forward. I think it is reasonable to keep him on liquid or pur?ed type diet that is very easy to digest for the next 24 to 48 hours. I also think he might benefit from some MiraLAX for the next 2 to 3 days. At that point, assuming he is feeling well, we can slowly we advance him towards regular diet. The addition of psyllium to his regular diet may also be useful. Subjective Subjective Interval history since last seen: Demetris is feeling much better today. He tolerated some liquids last night, and had a bowel movement overnight, as well as again this morning. He denies any abdominal pain this morning. Exam GI Other: His abdomen is soft and nondistended. He is not tender. Objective Last Vital Signs Temp 97.3 F L 01/30/25 10:58 Pulse 52 L 01/30/25 10:58 Resp 16 01/30/25 10:58 BP 112/66 01/30/25 10:58 Pulse Ox 95 01/30/25 10:58 Time Spent with Patient Time Spent with Patient: 25-34 minutes Time was spent: preparing to see the patient(eg.review tests), referring, communicating with other health assisted living care manager, indepentently interpreting results and counseling the patient
--- NOTE | 2025-01-30 13:31 | W.PM.PROGNOT ---
Date of Service Date of service: 01/30/25 Time of Service: 13:31 Assessment and Plan Assessment and plan (1) SBO (small bowel obstruction): Status: Acute Assessment and plan: - As seen on CT abdomen pelvis on admission - This is in the setting of open appendectomy in 2020 as well as nonoperative resolved small bowel obstruction in October 2023 - Clinically resolving, plan per surgery is slowly progress diet. - We did review diet/prevention. He would benefit from daily soluble fiber (psyllium) supplement after resolution of this episode, will recommend on discharge, possibly 01/31 if remains stable. (2) GERD (gastroesophageal reflux disease): Assessment and plan: - resume home PPI (3) BPH w urinary obs/LUTS: Status: Acute Assessment and plan: resume tamsulosin, monitor urine (4) DVT prophylaxis: Status: Acute Assessment and plan: enoxaparin Subjective Subjective Patient reports: no new complaints, feels better, tolerating liquids well and voiding w/o difficulty; denies nausea, vomiting, shortness of breath or fever Interval history since last seen: Events: NGT pulled at 4pm 01/29 He had 2 large BMs overnight. Additional stools today liquid with some solids, smaller. His abdominal pain feels better. Full liquid diet this morning. Exam Narrative Exam Narrative: Well-appearing gentleman laying in bed in no acute distress, ANO x 4, heart regular rhythm, lungs good auscultation bilaterally, abdomen mildly distended with no tenderness, +BS in 4 quadrants. extremities nontender, no edema Objective Last Vital Signs Temp 36.3 C L 01/30/25 10:58 Pulse 52 L 01/30/25 10:58 Resp 16 01/30/25 10:58 BP 112/66 01/30/25 10:58 Pulse Ox 95 01/30/25 10:58 Time Spent with Patient Time Spent with Patient: 25-34 minutes Time was spent: preparing to see the patient(eg.review tests), obtaining and/or reviewing separately otained hiistory, ordering medications,tests, procedures, referring, communicating with other health nurse care manager, indepentently interpreting results, counseling the patient and care coordination
[2025-01-30 15:03] VITALS: BP 103/64; PULSE 52; RESP 16; TEMP 36.4; O2SAT 96
[2025-01-30 19:19] VITALS: BP 105/66; PULSE 55; RESP 18; TEMP 36.6; O2SAT 94
[2025-01-30] MEDS: Normal Saline Flush 10 ML SYR IVP (19:41)
--- NOTE | 2025-01-31 | DI.CT_ITS ---
Exam(s) CT ABDOMEN PELVIS W EXAM: CT ABDOMEN PELVIS W CLINICAL HISTORY: re-assess pSBO - give oral contrast. TECHNIQUE: Imaging Protocol: Axial computed tomography images with coronal and sagittal reformatted images were created and reviewed CONTRAST MATERIAL: Intravenous: Omnipaque-350 75cc Oral: Yes. Oral contrast was also administered for bowel opacification. COMPARISON: CT CT ABDOMEN PELVIS W from 01/28/2025 FINDINGS: VISUALIZED LUNG BASES: There is new atelectasis in both lung bases. There are no pleural effusions.. ABDOMEN: GI: There is again noted evidence of partial right colectomy with right-sided ileocolic anastomosis a gain noted. There is a persistent small bowel obstruction pattern with small bowel loops measuring u p to 4.6 cm diameter. There is some air in fluid noted in the large bowel which is not completely co llapsed. Transition point appears to be in the right lower quadrant and probably related to adhesion s. There is no free air nor abscess and there is no evidence of ascites. No solid mesenteric masses evident. LIVER: Single subcapsular hypodensity in the right hepatic lobe again noted measuring 1.3 by 1.1 cm, unchanged. Most probably benign at is is also unchanged from 2020. no dilated intrahepatic ducts. GALLBLADDER/BILIARY: No obvious gallbladder pathology. CBD is not dilated. PANCREAS: Pancreatic head and uncinate process are again noted to be atrophic. Pancreatic body and t ail remain unremarkable. SPLEEN: Spleen is not enlarged. No obvious intrasplenic lesions. Splenic and portal veins are paten t. ADRENALS: There are no significant adrenal masses. KIDNEYS:Bilateral extrarenal pelves. No true hydronephrosis nor hydroureter. No solid renal masses. No calculi nor hydronephrosis.. ABDOMINAL AORTA: Abdominal aorta is not enlarged. LYMPH NODES:There is no retroperitoneal nor paraaortic adenopathy. ABDOMINAL WALL: No evidence of significant anterior abdominal wall nor inguinal hernia. PELVIS: GI: Appendix surgically absent.No evidence of sigmoid diverticulitis. LYMPH NODES: There is no intrapelvic nor inguinal adenopathy. REPRODUCTIVE: Enlarged and lobulated prostate gland which indents the bladder base. URINARY BLADDER: No calculi nor obvious masses evident. The pelvic ureters are not dilated. OSSEOUS: No fractures and no significant osseous lesions. Schmorl's node invagination superior endplate of L4. Chronic disc space narrowing at L3-4 level. No listhesis. IMPRESSION: 1. Persistent small bowel obstruction pattern. Transition point appears to be in the right lower johanny drant and most probably related to adhesions in this patient who has had prior partial right hemicole ctomy with ileocolic anastomosis. 2. There are no ischemic appearing bowel loops and there is no ascites, free air, nor abscess. 3. Other findings as above RADIATION DOSE DELIVERED: 590.64mGy.cm Total DLP DATA REPOSITORY: All CT scans at this facility are submitted to the National Radiology Data Registry (NRDR) Dose Index Registry (DIR) with the [employer] (ACR). RADIATION OPTIMIZATION: All CT scans at this facility use at least one of these dose optimization te chniques: automated exposure control; mA and/or kV adjustment per patient size (includes targeted exa ms where dose is matched to clinical indication); or iterative reconstruction.
[2025-01-31] MEDS: Normal Saline 1,000 ML 75 ML IV (01:05)
[2025-01-31 07:12] VITALS: BP 116/74; PULSE 64; RESP 20; TEMP 36.5; O2SAT 95
--- NOTE | 2025-01-31 08:29 | SCONE_ITS ---
Date of service: 01/31/25 Time of Service: 08:30 [facility] All Active Problems (Updated 01/30/25 @ 13:38 by Konstantin Crisostomo) DVT prophylaxis (Acute) SBO (small bowel obstruction) (Acute) Abdominal pain (Acute) Nausea & vomiting (Acute) Rising PSA level (Acute) Family history of prostate cancer (Acute) BPH w urinary obs/LUTS (Acute) Acute appendicitis (Acute) Shortness of breath (Acute) Chest pain (Acute) Elevated troponin (Acute) Medical History COVID-19 Vomiting Insomnia GERD (gastroesophageal reflux disease) Surgical History EGD - [facility] (11/23/16) Colonoscopy - [facility] (11/23/16) Social History Smoking/Tobacco Use Status: Never Smoking risk assessment performed?: Yes Alcohol Intake: current Alcohol Intake frequency: holidays/special occasions only Drug use: Never Substance use type: does not use Housing: other Do you feel safe at home: Yes Do you feel safe in your relationship?: Yes Results Last Vital Signs Temp 97.7 F 01/31/25 07:12 Pulse 64 01/31/25 07:12 Resp 20 01/31/25 07:12 BP 116/74 01/31/25 07:12 Pulse Ox 95 01/31/25 07:12 Labs 01/29/25 06:05 01/29/25 06:05
--- NOTE | 2025-01-31 09:13 | W.PM.PROGNOT ---
Date of Service Date of service: 01/31/25 Time of Service: 08:30 Assessment and Plan Assessment and plan (1) SBO (small bowel obstruction): Status: Acute Assessment and plan: 64-year-old man with partial small bowel obstruction in the setting of an extensive open surgical history. He has had prior obstructions before. They have resolved with NG tube decompression. This obstruction seemed to be doing well. He was tolerating a diet all day yesterday but unfortunately, this morning, says the symptoms have returned and indeed, his abdominal exam is pretty distended. Plan: N.p.o. Stat abdominal x-ray NG tube if vomits for if remains distended Surgery will continue to follow along Subjective Subjective Interval history since last seen: At the bedside the patient says cramping abdominal discomfort has returned. He feels nauseated after breakfast and thinks he might throw up. He is holding the little blue vomit bag. He did just have a large bowel movement but does not feel well at all. He was hoping to go home today. He says all of this started out with a bad appendicitis, a drain placement and then he says his colon became necrotic and he had to have an exploratory surgery. This was 5 or 6 years ago or something of that nature. Exam Narrative Exam Narrative: Gen: Non-toxic, interactive but clearly uncomfortable and not feeling well. Clutching blue vomit bag. Neuro: Alert and oriented x3 Psych: Reasonable mood and affect. Good insight and understanding into condition. Chest: Non-labored breathing, no wheezing, no visible shortness of breath. Heart: Regular Abdomen: Soft, no tenderness to examination but pretty distended. Objective Last Vital Signs Temp 97.7 F 01/31/25 07:12 Pulse 64 01/31/25 07:12 Resp 20 01/31/25 07:12 BP 116/74 01/31/25 07:12 Pulse Ox 95 01/31/25 07:12 Time Spent with Patient Time Spent with Patient: <25 minutes Time was spent: preparing to see the patient(eg.review tests), obtaining and/or reviewing separately otained hiistory, ordering medications,tests, procedures, referring, communicating with other health critical care nurse practitioner, indepentently interpreting results, counseling the patient and care coordination
[2025-01-31] MEDS: Ondansetron 4 MG/2 ML VIAL IVP ×2 (09:30→15:16)
--- NOTE | 2025-01-31 09:59 | PDOC.CMPRO ---
Date of service: 01/31/25 Time of Service: 09:59 Care Management Progress Note Progress Note Text Progress Note Text: Demetris was sitting up in bed when CM met with him. His diet was advanced yesterday to full liquids and he tolerated it well. This morning after breakfast he became distended again and had an increase in nausea and pain. His diet order was changed back to NPO and an Xray of his abdomen was ordered. Demetris stated that if Discharge Potential Discharge Needs: Surgical F/U Appt Anticipated Barriers to Discharge: Medical Status Patient/Family Education Needs: Review discharge instructions, discuss Ask Me Three Transportation: Private vehicle Plan: Anticipate Demetris will be discharged home with no new services when medically cleared. He will follow up with his PCP, surgeon and plan of care and transport with family. CM will follow and continue to support discharge planning. Social Determinants of Health Screening Social Determinants of health last assessed in clinic: 01/30/25 Will the Patient Participate in the Screening?: Yes Do you worry about having a steady place to live?: yes What is your living situation today?: I have housing today, but am worried about losing it Problems where you live: pests such as bugs, ants or mice In the past 12 months, have you had to go without electric, gas, oil or water in your home?: no Has lack of transportation kept you from medical appointments or from doing things needed for daily living?: no Has anyone in your life made you feel unsafe or unsupported?: no How hard is it for you to pay for the very basics like food, housing, medical care, and heating? Would you say it is:: Not hard at all Do you want help finding or keeping work or a job?: I do not need or want help If for any reason you need help with day-to-day activities such as bathing, preparing meals, shopping, managing finances, etc., do you get the help you need?: I don?t need any help How often do you feel lonely or isolated from those around you?: Never Do you speak a language other than [place] at home?: No Does the patient want assistance with any of the above?: No Health Related Social Needs Health related social needs: inadequate housing (Z59.1) and housing instability, housed, with risk of homelessness (Z59.811) Health related social needs details: denies any needs, patient has stable housing
--- NOTE | 2025-01-31 10:26 | DI.RAD_ITS ---
Exam(s) XR ABDOMEN FLAT PLATE EXAM: 2D digital imaging was performed. CLINICAL HISTORY: new distention. COMPARISON: CR,XR XR ABDOMEN FLAT PLATE from 01/28/2025 TECHNIQUE: Supine views of the abdomen performed. FINDINGS: BOWEL GAS PATTERN: A nasogastric tube has been removed. Stomach is not distended. There is persiste nt dilatation loops of small bowel in the abdomen. The colon shows air but is not abnormally distend ed. Small amount of stool. CALCIFICATIONS: No radiopaque calcifications. OSSEOUS STRUCTURES: Unremarkable for age. IMPRESSION: 1. Stable dilatation of loops of small bowel. DATA REPOSITORY: RADIATION DOSE DELIVERED:
[2025-01-31] MEDS: Tamsulosin 0.4 MG CAPCR PO (10:29)
[2025-01-31] MEDS: Enoxaparin 40 MG/0.4 ML SYR SC (10:29)
[2025-01-31] MEDS: Normal Saline Flush 10 ML SYR IVP ×3 (10:32→17:29)
[2025-01-31] MEDS: DEXTROSE 5%-LACTATED RINGERS 1,000 ML 125 ML IV ×2 (10:33→19:31)
[2025-01-31 11:18] VITALS: BP 121/75; PULSE 70; RESP 16; TEMP 37.1; O2SAT 94
[2025-01-31] MEDS: Pantoprazole 40 MG VIAL IVP (12:25)
[2025-01-31] MEDS: Omnipaque 350 MG/ML 50 ML BTL IJ (12:36)
[2025-01-31] MEDS: Breeza Beverage 473 ML BTL PO (12:37)
[2025-01-31 12:42] LABS: Abs Immature Grans 0.01 10^3/uL (0.0-0.06); Absolute Basophil Count 0.03 10^3/uL (0.0-0.2); Absolute Eosinophil Count 0.11 10^3/uL (0.0-0.7); Absolute Lymphocyte Count 0.65 10^3/uL (1.2-3.4); Absolute Monocyte Count 0.47 10^3/uL (0.1-0.8); Absolute Neutrophil Count 4.08 10^3/uL (1.2-6.7); Basophils % 0.6 %; Eosinophils % 2.1 %; HCT 43.8 % (40.0-50.0); Immature Grans % 0.2 %; Lymphocytes % 12.1 %; MCH 31.8 pg (27.0-33.0); MCHC 34.2 % (32.0-36.0); MCV 93 fL (80-95); MPV 9.3 fL (8.0-11.0); Monocytes % 8.8 %; Neutrophils % 76.2 %; Platelet Count 185 10^3/uL (130-400); RBC 4.71 10^6/uL (4.36-5.78); RDW 12.4 % (11.8-14.1); RDW-SD 42.9 fL; WBC 5.35 10^3/uL (4.4-10.8)
[2025-01-31 13:03] LABS: ALT 27 U/L (16-63); AST 17 U/L (15-37); Albumin 3.3 g/dL (3.4-5.0); Alkaline Phosphatase 82 U/L (46-116); Anion Gap 7.1 mmol/L (3-11); BUN 10 mg/dL (7-18); Bilirubin, Total 0.5 mg/dL (0.2-1.0); CO2 30.9 mmol/L (21.0-32.0); Calcium 8.8 mg/dL (8.5-10.1); Chloride 105 mmol/L (98-107); Estimated GFR 84.57 (mL/min/1.73m2); Glucose 138 mg/dL (74-106); Sodium 143 mmol/L (136-145); Total Protein 6.8 g/dL (6.4-8.2)
[2025-01-31] MEDS: Normal Saline - Diluent 50 ML VIAL IJ (14:32)
[2025-01-31] MEDS: Omnipaque 350 MG/ML 100 ML BTL IJ (14:34)
[2025-01-31 15:20] VITALS: BP 115/61; PULSE 64; RESP 12; TEMP 37.1; O2SAT 94
--- NOTE | 2025-01-31 17:05 | PGE_ITS ---
Date of Service Date of service: 01/31/25 Time of Service: 15:20 Assessment and Plan Assessment and plan (1) SBO (small bowel obstruction): Status: Acute Assessment and plan: - As seen on CT abdomen pelvis on admission, still there today on repeat. Symptoms worse again today. - This is in the setting of open appendectomy in 2020 as well as nonoperative resolved small bowel obstruction in October 2023 - Will treat with IV pain medicaiton, try ketoralac first but I wouldn't keep using this with his h/o GI bleed, can also use morphine prn. - He doesn't want NGT back but he may need it if he starts to vomit again - He is understandably frustrated. We discussed what surgery would look like, with and son as well. He seems to have surgical adhesions. He is concer rebecca he may need an ostomy. Will await surgery recommendations (2) GERD (gastroesophageal reflux disease): Assessment and plan: - Continue PPI now IV (3) BPH w urinary obs/LUTS: Status: Acute Assessment and plan: resume tamsulosin when taking po, monitor urine (4) DVT prophylaxis: Status: Acute Assessment and plan: enoxaparin Subjective Subjective Patient reports: voiding w/o difficulty; denies shortness of breath or fever Interval history since last seen: Events: Increased pain and nausea this morning, back to NPO per surgery Dr. Peguero. He felt a little better mid day, no longer nauseous. never vomited. Pain more mild. Nausea came back after prep for CT scan. Now getting pain again in epigastrum, feels more bloated. Doesn't want NGT back Exam Narrative Exam Narrative: Sitting up in bed in no acute distress, ANO x 4, heart regular rhythm, lungs clear to auscultation bilaterally, abdomen moderately distended, more tense today, with mild epigastric tenderness, +BS but less active in 4 quadrants. extremities nontender, no edema Objective Last Vital Signs Temp 37.1 C 01/31/25 15:20 Pulse 64 01/31/25 15:20 Resp 12 01/31/25 15:20 BP 115/61 01/31/25 15:20 Pulse Ox 94 01/31/25 15:20 Laboratory Results - last 24 hr 01/31/25 12:32 WBC 5.35 RBC 4.71 Hgb 15.0 Hct 43.8 MCV 93 MCH 31.8 MCHC 34.2 RDW 12.4 Plt Count 185 MPV 9.3 Immature Gran % 0.2 Neutrophils % 76.2 Lymphocytes % 12.1 Monocytes % 8.8 Eosinophils % 2.1 Basophils % 0.6 Nucleated RBC % 0.0 Absolute Neutrophils 4.08 Absolute Lymphocytes 0.65 L Absolute Monocytes 0.47 Absolute Eosinophils 0.11 Absolute Basophils 0.03 Sodium 143 Potassium 4.0 Chloride 105 Carbon Dioxide 30.9 Anion Gap 7.1 BUN 10 Creatinine 1.0 Est GFR (CKD-EPI 2020) 84.57 Glucose 138 H Calcium 8.8 Total Bilirubin 0.5 AST 17 ALT 27 Alkaline Phosphatase 82 Total Protein 6.8 Albumin 3.3 L Time Spent with Patient Time Spent with Patient: 35-49 minutes Time was spent: preparing to see the patient(eg.review tests), obtaining and/or reviewing separately otained hiistory, ordering medications,tests, procedures, referring, communicating with other health acute care clinical nurse specialist, indepentently interpreting results, counseling the patient and care coordination
[2025-01-31] MEDS: Ketorolac 15 MG/ML VIAL IVP (17:29)
[2025-01-31 19:14] VITALS: BP 106/78; PULSE 69; RESP 18; TEMP 36.8; O2SAT 92
[2025-01-31 23:14] VITALS: BP 101/69; PULSE 67; RESP 19; TEMP 36.7; O2SAT 93
[2025-02-01] MEDS: DEXTROSE 5%-LACTATED RINGERS 1,000 ML 125 ML IV (03:38)
[2025-02-01 07:21] VITALS: BP 111/73; PULSE 60; RESP 16; TEMP 36.4; O2SAT 95
[2025-02-01] MEDS: Polyethylene Glycol 3350 17 GM PACKET PO (07:56)
[2025-02-01] MEDS: Enoxaparin 40 MG/0.4 ML SYR SC (07:56)
[2025-02-01] MEDS: Normal Saline Flush 10 ML SYR IVP (07:56)
[2025-02-01] MEDS: Tamsulosin 0.4 MG CAPCR PO (07:56)
[2025-02-01] MEDS: Pantoprazole 40 MG VIAL IVP (07:57)
--- NOTE | 2025-02-01 08:21 | W.PM.PROGNOT ---
Date of Service Date of service: 02/01/25 Time of Service: 08:21 Assessment and Plan Assessment and plan (1) SBO (small bowel obstruction): Status: Acute Assessment and plan: 64-year-old man with mechanical small bowel obstruction. Certainly he is improving from a clinical standpoint (once again). I am somewhat pessimistic about how this is going to play out. He is adamant he has no more abdominal discomfort whatsoever and he has definitely had multiple large bowel movements. However, his abdomen is absolutely still a little bit distended and tympanitic. He reassures me that this is his normal baseline, and that may be, but we will see how giving him a diet goes. If he cannot tolerate a diet and the cramping comes back, then we need to do another 48 hours of suction and decompressing and if that is not successful, a laparoscopic exploration will be warranted. He is very adamant that he has lots to do and needs to leave the hospital as soon as he can. I think if he is tolerating a diet all day, he can probably go home this afternoon with the understanding that this may come back and if so, he will need to come back to the hospital. Plan: Trial of clear liquids and see how he does Subjective Subjective Interval history since last seen: Overnight the patient has had 3 large bowel movements and all of the cramping abdominal discomfort went away. He has not vomited. He has not required pain medicine although all day yesterday he was in discomfort and cramping. He tells me I only have bowel movements once every 3 to 4 days, which is my regular he also says I have been like that my entire life. He feels his belly with his hands and shows this is my normal belly Exam Narrative Exam Narrative: Gen: Non-toxic, comfortable and interactive Neuro: Alert and oriented x3 Psych: Good mood and affect. Good insight and understanding into condition. Chest: Non-labored breathing, no wheezing, no visible shortness of breath. Heart: Regular Abdomen: Soft, no tenderness at all, mild distention still present but noticeably lessened yesterday. Objective Last Vital Signs Temp 97.5 F L 02/01/25 07:21 Pulse 60 02/01/25 07:21 Resp 16 02/01/25 07:21 BP 111/73 02/01/25 07:21 Pulse Ox 95 02/01/25 07:21 Laboratory Results - last 24 hr 01/31/25 12:32 WBC 5.35 RBC 4.71 Hgb 15.0 Hct 43.8 MCV 93 MCH 31.8 MCHC 34.2 RDW 12.4 Plt Count 185 MPV 9.3 Immature Gran % 0.2 Neutrophils % 76.2 Lymphocytes % 12.1 Monocytes % 8.8 Eosinophils % 2.1 Basophils % 0.6 Nucleated RBC % 0.0 Absolute Neutrophils 4.08 Absolute Lymphocytes 0.65 L Absolute Monocytes 0.47 Absolute Eosinophils 0.11 Absolute Basophils 0.03 Sodium 143 Potassium 4.0 Chloride 105 Carbon Dioxide 30.9 Anion Gap 7.1 BUN 10 Creatinine 1.0 Est GFR (CKD-EPI 2020) 84.57 Glucose 138 H Calcium 8.8 Total Bilirubin 0.5 AST 17 ALT 27 Alkaline Phosphatase 82 Total Protein 6.8 Albumin 3.3 L Time Spent with Patient Time Spent with Patient: <25 minutes Time was spent: preparing to see the patient(eg.review tests), obtaining and/or reviewing separately otained hiistory, referring, communicating with other health care transition manager, indepentently interpreting results, counseling the patient and care coordination
--- NOTE | 2025-02-01 11:01 | PGE_ITS ---
Date of Service Date of service: 02/01/25 Time of Service: 11:01 Assessment and Plan Assessment and plan (1) SBO (small bowel obstruction): Status: Acute Assessment and plan: - As seen on CT abdomen pelvis on admission, still there on repeat 01/31. Symptoms better again today. - This is in the setting of open appendectomy in 2020 as well as nonoperative resolved small bowel obstruction in October 2023 - Discussed with Dr. Peguero. Progressing diet. Patient really wants to avoid surgery if he can. (2) GERD (gastroesophageal reflux disease): Assessment and plan: - Continue PPI now IV, go back to po if tolerating (3) BPH w urinary obs/LUTS: Status: Acute Assessment and plan: resume tamsulosin when taking po, monitor urine (4) DVT prophylaxis: Status: Acute Assessment and plan: enoxaparin Subjective Subjective Patient reports: denies voiding w/o difficulty, vomiting, shortness of breath or fever Interval history since last seen: Events: Repeat CT scan showing obstruction He was sick again after oral contrast, but feels better today. No pain or nausea. Continues to have BMs. He wants to go home when he can. Had clear fluids [facility] Exam Narrative Exam Narrative: Sitting up in bed in no acute distress, ANO x 4, heart regular rhythm, lungs clear to auscultation bilaterally, abdomen mildy distended, softer again today, without tenderness, +BS. extremities nontender, no edema Objective Last Vital Signs Temp 36.4 C L 02/01/25 07:21 Pulse 60 02/01/25 07:21 Resp 16 02/01/25 07:21 BP 111/73 02/01/25 07:21 Pulse Ox 95 02/01/25 07:21 Laboratory Results - last 24 hr 01/31/25 12:32 WBC 5.35 RBC 4.71 Hgb 15.0 Hct 43.8 MCV 93 MCH 31.8 MCHC 34.2 RDW 12.4 Plt Count 185 MPV 9.3 Immature Gran % 0.2 Neutrophils % 76.2 Lymphocytes % 12.1 Monocytes % 8.8 Eosinophils % 2.1 Basophils % 0.6 Nucleated RBC % 0.0 Absolute Neutrophils 4.08 Absolute Lymphocytes 0.65 L Absolute Monocytes 0.47 Absolute Eosinophils 0.11 Absolute Basophils 0.03 Sodium 143 Potassium 4.0 Chloride 105 Carbon Dioxide 30.9 Anion Gap 7.1 BUN 10 Creatinine 1.0 Est GFR (CKD-EPI 2020) 84.57 Glucose 138 H Calcium 8.8 Total Bilirubin 0.5 AST 17 ALT 27 Alkaline Phosphatase 82 Total Protein 6.8 Albumin 3.3 L Time Spent with Patient Time Spent with Patient: 25-34 minutes Time was spent: preparing to see the patient(eg.review tests), obtaining and/or reviewing separately otained hiistory, ordering medications,tests, procedures, referring, communicating with other health resident care aide, indepentently interpreting results, counseling the patient and care coordination
[2025-02-01 11:38] VITALS: BP 123/77; PULSE 62; RESP 12; TEMP 36.5; O2SAT 97
--- NOTE | 2025-02-01 12:03 | CMPROGNOTE_ITS ---
Date of service: 02/01/25 Time of Service: 12:03 Care Management Progress Note Progress Note Text Progress Note Text: Demetris was sitting up in his chair, when CM arrived. He expressed concerns related to his housing, CM offered legal executive assistant phone numbers and a referral to [facility]; he was agreeable to both. Per report, if he is able to tolerate a diet today, he may be able to discharge in the afternoon. Per Demetris, he does not want to undergo surgery and he would like to leave [facility] as soon as possible. CM will continue to follow. Discharge Potential Discharge Needs: PCP F/U Appt and Surgical F/U Appt Anticipated Barriers to Discharge: Medical Status Patient/Family Education Needs: Review discharge instructions, discuss Ask Me Three Transportation: Private vehicle Plan: Anticipate Demetris will be discharged home with no new services when medically cleared. He will follow up with his PCP, surgeon and plan of care and transport with family. He has been referred to [facility] by CM. CM will follow and continue to support discharge planning. Social Determinants of Health Screening Social Determinants of health last assessed in clinic: 02/01/25 Will the Patient Participate in the Screening?: Yes Do you worry about having a steady place to live?: yes What is your living situation today?: I have housing today, but am worried about losing it Problems where you live: pests such as bugs, ants or mice In the past 12 months, have you had to go without electric, gas, oil or water in your home?: no 1. Within the past 12 months, we worried whether our food would run out before we got money to buy more.: Never true 2. Within the past 12 months, the food we bought just didn't last and we didn't have money to get more.: Never true Has lack of transportation kept you from medical appointments or from doing things needed for daily living?: no Has anyone in your life made you feel unsafe or unsupported?: no How hard is it for you to pay for the very basics like food, housing, medical care, and heating? Would you say it is:: Not hard at all Do you want help finding or keeping work or a job?: I do not need or want help If for any reason you need help with day-to-day activities such as bathing, preparing meals, shopping, managing finances, etc., do you get the help you need?: I don?t need any help How often do you feel lonely or isolated from those around you?: Never Do you speak a language other than [place] at home?: No Does the patient want assistance with any of the above?: No Health Related Social Needs Health related social needs: inadequate housing (Z59.1) and housing instability, housed, with risk of homelessness (Z59.811) Health related social needs details: denies any needs, patient has stable housing
[2025-02-01 15:06] VITALS: BP 122/61; PULSE 54; RESP 16; TEMP 36.4; O2SAT 96
--- NOTE | 2025-02-01 17:39 | W.PM.DS.N ---
Date of service: 02/01/25 Time of Service: 17:39 DS: Diagnosis Discharge Diagnosis (1) SBO (small bowel obstruction): Status: Acute (2) GERD (gastroesophageal reflux disease): (3) BPH w urinary obs/LUTS: Status: Acute (4) DVT prophylaxis: Status: Acute Discharge Plan Disposition Patient Disposition: Home Condition: Improving Discharge Details Reason For Visit: SBO Admit Date/Time: 01/28/25 08:38 Admit Provider: Donald Pozo Attending Provider: Donald Pozo Primary Care Provider: Surinder Chen Hospital Course Hospital Course: 64-year-old male with a past medical history of GERD and open appendectomy for perforated appendicitis in 2020 who presents emergency department with abdominal pain. CT confirmed SBO. He was admitted for supportive care, NGT was placed, and he was given gastrograffin. The gastrograffin did not move quickly through his system, but by 01/30 he was having bowel movements and progressing his diet to full liquids. He felt worse 01/31 with nausea and pain, and repeat CT showed a persistent SBO in the area of his old enastamosis. He was made NPO again. Even so, he was feeling better by 02/01 and am progressed to clear diet again. He really wanted to avoid surgery, so after discussion with Dr. Peguero we agreed to let him discharge and slowly progress his diet at home. PCP follow up: Follow up 1-2 weeks Consider bowel regimen and dietary fiber once he is feeling better, including daily psyllium supplement. Home Meds and New Rx's Prescriptions: New ondansetron 4 mg tablet,disintegrating 4 mg PO Q8H PRNQty: 14 0RF Continued tamsulosin [Flomax] 0.4 mg capsule 0.4 mg PO DAILY Qty: 90 3RF tadalafil [Cialis] 5 mg tablet 5 mg PO DAILY Qty: 90 1RF Rx Instructions: For BPH with LUTS clotrimazole-betamethasone 1-0.05 % cream 1 applic topical BID omeprazole 40 mg capsule,delayed release(DR/EC) 40 mg PO QDAY Discontinued cyclobenzaprine 10 mg tablet 10 mg PO HS ibuprofen [Advil Liqui-Gel] 200 mg Capsule 800 mg PO DAILY Discharge Instructions Instructions: Small Bowel Obstruction (DC) Additional Instructions: Slowly progress your diet, starting with liquids for now If you have sever pain or vomiting again, come back. ibuprofen and cyclobenzaprine can make the bowel issue worse. You can use Miralax as needed to help have bowel movements. Nausea medication was sent for as needed to your pharmacy Activity:: Activity as Tolerated Equipment/Supplies:: No Equipment Needed Diet:: Other Discharge Orders Discharge Orders: Discharge Order (Routine); Ordered 02/01/25 Ordered By: Konstantin Crisostomo DS: Summary Time Spent with Patient providing and/or coordinating discharge services: Greater than 30 minutes Status at Discharge Functional status at discharge: independent ambulation Overall status at discharge: patient is progressing back to baseline Mental Status: mental status grossly normal Speech and Movement: speech and movement normal Mood: congruent mood Affect: normal affect Quality:SDOH Health Related Social Needs: Health related social needs inadequate housing (Z59.1), housing instability, housed, with risk of homelessness (Z59.811) Health related social needs details denies any needs, patient has stable housing Health related social needs details: denies any needs, patient has stable housing Exam Narrative Exam Narrative: Sitting up in bed in no acute distress, ANO x 4, heart regular rhythm, lungs clear to auscultation bilaterally, abdomen mildy distended, softer again today, without tenderness, +BS. extremities nontender, no edema Psych Mental Status: mental status grossly normal Speech and Movement: speech and movement normal Mood: congruent mood Affect: normal affect DS: Data Vitals/I&O Vitals and I&O: Vital Signs Temperature 36.4 C L 02/01/25 15:06 Temperature Source Temporal Artery Scan 02/01/25 15:06 Pulse 54 L 02/01/25 15:06 Pulse Rhythm Regular 01/28/25 09:35 Respiratory Rate 16 02/01/25 15:06 Respiratory Effort Normal 01/28/25 09:35 Blood Pressure 122/61 02/01/25 15:06 Blood Pressure Mean 81 02/01/25 15:06 Blood Pressure Position Sitting 01/28/25 06:34 Pulse Oximetry 96 02/01/25 15:06 Oxygen Delivery Method Room Air 02/01/25 15:06 Oxygen Flow Rate 0 02/01/25 15:06 Pain Level 0 02/01/25 15:06 Comment RN notified 02/01/25 15:06 Intake & Output 01/31/25 02/01/25 02/01/25 23:59 11:59 23:59 Intake Total 1999 2400 / 2700 300 / 2700 Output Total 1425 / 2400 550 / 550 Balance 575 / -250 185 / 2150 300 / 2150 Intake: IV 1999 Oral 400 / 700 300 / 700 Output: Urine 1425 / 2400 550 / 550 Other: Urine Color Yellow Yellow Urine Appearance Clear Clear Urine Odor None Comment void x 1 in toilet pt stated they voided Stool Size Small Small Small Stool Characteristics Soft Formed Brown Formed Brown Brown PFSH All Active Problems (Updated 01/30/25 @ 13:38 by Konstantin Crisostomo) DVT prophylaxis (Acute) SBO (small bowel obstruction) (Acute) Abdominal pain (Acute) Nausea & vomiting (Acute) Rising PSA level (Acute) Family history of prostate cancer (Acute) BPH w urinary obs/LUTS (Acute) Shortness of breath (Acute) Acute appendicitis (Acute) Elevated troponin (Acute) Chest pain (Acute) Medical History COVID-19 Vomiting Insomnia GERD (gastroesophageal reflux disease) Surgical History EGD - [facility] (11/23/16) Colonoscopy - [facility] (11/23/16) Social History Smoking/Tobacco Use Status: Never Smoking risk assessment performed?: Yes Alcohol Intake: current Alcohol Intake frequency: holidays/special occasions only Drug use: Never Substance use type: does not use Housing: other Do you feel safe at home: Yes Do you feel safe in your relationship?: Yes Time Spent with Patient Time Spent with Patient: <45 minutes Time was spent: preparing to see the patient(eg.review tests), obtaining and/or reviewing separately otained hiistory, ordering medications,tests, procedures, referring, communicating with other health hospice spiritual care coordinator, indepentently interpreting results, counseling the patient and care coordination
== END 2025-02-01 17:51 | disposition home or self-care (01) | DRG 389 ==
LOC: ER 08:46 → MS 09:27
PROVIDERS: Student in an Organized Health Care Education/Training Program; Admitting Provider Family Medicine; Emergency Provider Emergency Medicine; PCP Family Medicine; Responsible Provider Family Medicine; Visit Provider Family Medicine
DX: K56.51 Intestinal adhesions [bands], with partial obstruction (principal); N13.8 Other obstructive and reflux uropathy; N40.1 Benign prostatic hyperplasia with lower urinary tract symptoms; K21.9 Gastro-esophageal reflux disease without esophagitis; R11.2 Nausea with vomiting, unspecified; G47.00 Insomnia, unspecified
CPT/HCPCS: 00123; 36415; 80048; 80053; 83690; 85027; 96361; 96374; 96375; 99285; J1650; 74018; 74177; 81003; 81015; 83605; 83735; 85025; 99223; 99232; 99239; J0131; J1885; J2405; J2470; J3490; Q9967

== ENCOUNTER 2025-08-01 02:12 | Outpatient (CLI) | payer MEDICAID, SELFPAY ==
[2025-08-01 18:26] LABS: PSA, Screening 4.1 ng/mL (<=4.5)
== END 2025-08-01 02:13 | disposition home or self-care (01) ==
LOC: LBO 02:13
PROVIDERS: PCP Family Medicine; Visit Provider Nurse Practitioner Gerontology
DX: R39.9 Unspecified symptoms and signs involving the genitourinary system (principal); R97.20 Elevated prostate specific antigen [PSA]; Z80.42 Family history of malignant neoplasm of prostate; N40.1 Benign prostatic hyperplasia with lower urinary tract symptoms; N13.8 Other obstructive and reflux uropathy
CPT/HCPCS: 36415; 84153